=== PATIENT | female | born 1950 | race Caucasian/White ===

== ENCOUNTER 2019-06-13 17:59 | Inpatient (IN) | payer MEDICARE, SELFPAY ==
[2019-06-13] VITALS (9 sets, daily range): BP systolic 94–134; BP diastolic 56–84; PULSE 105–152; RESP 15–23; TEMP 36.6–38.1; O2SAT 92–98; BMI 35.2
--- NOTE | ~2019-06-13 | NM_ITS ---
NM lung vent and perfusion INDICATION: Shortness of breath TECHNIQUE: The patient inhaled aerosolized 6.5 mCi xenon-133. Following ventilation scan, 5.4 mCi Tc 99m MAA was injected intravenously for perfusion images. Multiple images were then acquired. COMPARISON: Chest x-ray dated 06/13/2019 FINDINGS: The comparison chest radiograph demonstrates no pulmonary infiltrates or pleural fluid. The re is moderate matched defect in the right midlung posteriorly there is a matched defect in the left midlung. No significant retention of radiotracer. No V/Q mismatches. IMPRESSION: 1: Low probability for pulmonary embolism.. Reviewed, dictated and finalized at location A. TENDER
--- NOTE | ~2019-06-13 | XR_ITS ---
XR chest 1V portable 06/13/2019 18:58 Indication: Shortness of breath Procedure: AP portable chest Comparison: Comparison to multiple prior studies sequentially, with oldest reviewed study dated 05/29. Findings: Heart size normal. Port catheter tip in the CC. There is chronic bibasilar atelectasis/scar ring, left greater than right. No acute focal pneumonia, edema or effusion. Impression: 1: No acute cardiopulmonary disease. Reviewed, dictated and finalized at location A. UTER SCIENCE INSTRUCTOR Impression: 1: No acute cardiopulmonary disease.
--- NOTE | ~2019-06-13 | XR_ITS ---
EXAMINATION: XR chest 2V DATE: 06/16/2019 14:54 INDICATION: Cough. TECHNIQUE: Frontal and lateral views of the chest were obtained. COMPARISON: Chest single view 06/13/2019, CT abdomen and pelvis 06/01/2019 FINDINGS: There is mild atelectasis in left lower lung zone. No pleural effusion or pneumothorax. The heart size is normal. There is a left subclavian port with tip in superior vena cava. There is mild chronic anterior wedging of multiple thoracic vertebral bodies. IMPRESSION: 1. Mild atelectasis in left lower lung zone. Reviewed, dictated and finalized at location A. ER OPERATOR HELPER
--- NOTE | 2019-06-13 18:26 | ECG_ITS ---
Measurements Intervals Beauty Rate: 157 P: SC: 0 QRS: -30 QRSD: 105 T: 81 QT: 288 QTc: 465 Interpretive Statements ATRIAL FIBRILLATION WITH RAPID VENTRICULAR RESPONSE NONSPECIFIC ST & T-WAVE ABNORMALITY- LATERAL LEADS BASELINE ARTIFACT- I, III, AVL ABNORMAL ECG Electronically Signed On 06-14-2019 15:33:57 CIRCUS ARTIST by Thaddeus Stern D.O.
[2019-06-13] MEDS: SODIUM CHLORIDE 0.9% IV 1,000 ML 999 ML IV CONT (18:38)
[2019-06-13] MEDS: ACETAMINOPHEN 325 MG TABLET 650 MG PO (18:47)
--- NOTE | 2019-06-13 18:51 | ED.ARRPALP ---
HPI - Arrhythmia/Palpitations General Chief Complaint: Shortness of Breath/Dyspnea Stated Complaint: DIFFICULTY BREATHING Time Seen by Provider: 06/13/19 18:21 Source: patient Mode of arrival: ambulatory Limitations: no limitations History of Present Illness HPI narrative: A 69 y/o female pt presents to the ED with c/o moderate heart palpitations with SOB that began today. She states that she can feel her heart beating very fast and reports no modifying factors. Pt states that in April she was prescribed Amiodarone 400mg daily for her AFib, by her medical secretary teacher, Dr. Gaviria, but it is not helping to alleviate her Sx today. Pt has a PMHx of AFib and lung and throat CA. She is currently taking Warfarin as her anticoagulation therapy and is on chemotherapy for her CA. Pt notes a cough, a fever of 100.6F in the ED, and sore throat, but denies CP, N/V/D, or ABD pain. Pt also states she has chronic back and ABD pain but denies any new onset. MD complaint: palpitations Onset (ago): day(s) (1) Severity: moderate Arrhythmia history: atrial fibrillation and on anti-coagulants (Warfarin) Associated symptoms: shortness of breath, cough and other (fever, sore throat) Treatments prior to arrival: amiodarone (400mg daily) Related Data Allergies Allergy/AdvReac Type Severity Reaction Status Date / Time ioversol Allergy Severe Anaphylactic Verified 06/13/19 18:26 Shock codeine Allergy Intermediate Nausea and Verified 06/13/19 18:26 Vomiting iohexol Allergy Mild Unknown Verified 06/13/19 18:26 [From CONTRAST - CT, XRAY] Review of Systems Review of Systems: All systems reviewed & are unremarkable except as noted in HPI and below Constitutional: Constitutional: Denies chills, Reports fever(s) (100.6), Denies headache(s) and Denies weakness Eyes: Eyes: Denies blurry vision ENT: Denies headache(s), Denies neck pain and Reports sore throat Cardiovascular: Cardiovascular: Denies chest pain, Reports palpitations and Reports dyspnea Respiratory: Respiratory: Reports cough and Reports dyspnea Gastrointestinal: Gastrointestinal: Reports abdominal pain (chronic), Denies diarrhea, Denies nausea and Denies vomiting Genitourinary: Genitourinary: Denies hematuria and Denies dysuria Musculoskeletal: Musculoskeletal: Reports back pain (chronic) and Denies neck pain Neurologic: Denies headache(s) and Denies weakness [facility] Past Medical History Medical History Anemia Arthritis Atrial fibrillation Back injury slipped disc, vertebra fx. Plates and screws Breast CA Chemo and radiation Bronchitis Cataracts, bilateral Only the right eye cataract was removed CVA (cerebral vascular accident) Briefly affected vision but has no residual Gallstones Hyperlipidemia Was taken off of her statin Hypertension Laryngeal cancer Receiving chemo radiation Lung nodule Being monitored Obstruction of bowel Port-A-Cath in place Left chest Surgical History Surgical History H/O mastectomy rt H/O tubal ligation History of back surgery History of bilateral knee replacement History of total knee arthroplasty bilateral Hx of hernia repair Social History Social History Social History: 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 They have 2 children. 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
[2019-06-13 18:56] LABS: Hematocrit 35.9 % (37.0-47.0); Mean Corpuscular HGB Conc 33.4 g/dl (32-36); Mean Corpuscular Hemoglobin 33.1 pg (26-34); Mean Corpuscular Volume 98.9 fl (80-100); Mean Platelet Volume 11.1 fl (7.4-10.4); Platelet Count Result 229 k/mm3 (150-375); Red Blood Count 3.63 M/mm3 (4.2-5.4); Red Cell Distribution Width 14.9 % (11.5-14.5); White Blood Count 2.1 K/mm3 (4.5-10.0)
[2019-06-13 19:07] LABS: Alanine Aminotransferase 31 U/L (4-35); Albumin Level 3.4 g/dL (3.5-5.1); Alkaline Phosphatase 100 U/L (38-126); Aspartate Amino Transferase 29 U/L (14-36); Bilirubin,Total 0.5 mg/dL (0.2-1.3); Blood Urea Nitrogen 18 mg/dL (7-17); Calcium 8.8 mg/dL (8.4-10.2); Carbon Dioxide 28 mmol/L (22-30); Chloride 95 mmol/L (98-107); Estimated Glomerular Filt Rate > 60; Glucose 102 mg/dL (65-105); Potassium 3.5 mmol/L (3.4-5.0); Sodium 132 mmol/L (137-145)
[2019-06-13 19:16] LABS: Lactic Acid Reflex 1.1 mmol/L (0.7-2.1)
[2019-06-13 19:17] LABS: Total Cells Counted 100
[2019-06-13 19:18] LABS: Band Neutrophils Percent 2 % (0-6); Monocytes Absolute Manual 0.48 K/mm3 (0.1-0.90); Monocytes Percent Manual 23 % (3-9); Neutrophils Absolute Manual 0.29 K/mm3 (1.7-7.2); Neutrophils Percent Manual 12 % (46-73); Nucleated Red Blood Cells 2 %; Platelet Estimate Adequate (Adequate)
[2019-06-13 19:19] LABS: NT Pro B Type Natriuretic Pept 784 PG/ML (5-100); Troponin I < 0.012 ng/mL (0.000-0.034)
[2019-06-13 19:20] LABS: Lymphocytes Absolute Manual 1.26 K/mm3 (1.1-4.5); Lymphocytes Percent Manual 60 % (18-44); Myelocytes Percent 3 %; Smudge Cells FEW
--- NOTE | 2019-06-13 19:23 | PC.NURSE ---
Per FIONA Sands, port access okay to use.
[2019-06-13 20:09] LABS: INR 2.8; Prothrombin Time 29.2 Seconds (11.1-14.7)
[2019-06-13 20:11] LABS: Partial Thromboplastin Time 107.8 SECONDS (22.3-36.8)
--- NOTE | 2019-06-13 20:34 | PC.NURSE ---
Per EDP Wicho, hold off on Cardizem drip. Patient's blood pressure 94/67 at this time.
[2019-06-13] MEDS: DIGOXIN INJ 250 MCG/ML 2 ML AMP (*BKC) IV PUSH (21:15)
[2019-06-13 21:47] LABS: Digoxin < 0.4 ng/mL (0.8-2.0)
[2019-06-13 21:58] LABS: Troponin I < 0.012 ng/mL (0.000-0.034)
--- NOTE | 2019-06-13 22:08 | PM.IMHP ---
H&P: HPI History of Present Illness Chief complaint: Cough and palpitations Narrative: This is a pleasant 69-year-old female with known laryngeal cancer since 2016 and paroxysmal atrial fibrillation who was recently admitted to our hospitalist service last month for rapid atrial fibrillation and who presented to the hospital tonight with a complaint of intermittent palpitations, ongoing sore throat over the past few days, exertional shortness of breath, and a dry hacking cough for the past few weeks. She was recently started on oral chemotherapy over a week ago and she reports that she presented to the emergency room on the of this month with similar symptoms of a sore throat and a dry cough. At that time she was sent home. She reports having a fever of 100.6? F today and chills. She also reports having dysuria and vaginal itching and believes that she likely has a yeast infection. She denies any chest pain or abdominal pain tonight. She denies any lower extremity swelling or redness. Patient was evaluated emergency room this evening and routine labs were obtained. She was found to be in rapid atrial fibrillation and she was started on IV Cardizem. Routine labs demonstrated leukopenia with a white blood cell count of 2.1. The patient is anticoagulated on Coumadin and her INR is 2.8 tonight. The patient's last known echocardiogram this last month demonstrated an ejection fraction of 35%. She has been on oral amiodarone after having a failed cardioversion last month. We been asked to admit the patient to the hospital for her rapid atrial fibrillation. The patient admits that she continues to smoke about a half a pack of cigarettes a day despite having laryngeal cancer. Review of Systems Review of Systems: All systems reviewed & are unremarkable except as noted in HPI and below PMFSH Past Medical History Medical History Anemia Arthritis Atrial fibrillation Back injury slipped disc, vertebra fx. Plates and screws Breast CA Chemo and radiation Bronchitis Cataracts, bilateral Only the right eye cataract was removed CVA (cerebral vascular accident) Briefly affected vision but has no residual Gallstones Hyperlipidemia Was taken off of her statin Hypertension Laryngeal cancer Receiving chemo radiation Lung nodule Being monitored Obstruction of bowel Port-A-Cath in place Left chest Surgical History Surgical History H/O mastectomy rt H/O tubal ligation History of back surgery History of bilateral knee replacement History of total knee arthroplasty bilateral Hx of hernia repair Family History Family History Mother Family history of malignant neoplasm Family history of heart disease in male family member before age 55 Patient's mother is Father Family history of malignant neoplasm of brain Sibling Cancer Other Family history of arthritis Social History Social History Social History: 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 They have 2 children. 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. 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
[2019-06-13] MEDS: AMIODARONE 150 MG/D5W 100 ML 150 MG/100 ML BAG 600 MG IV CONT (23:03)
[2019-06-13] MEDS: AMIODARONE 360 MG/D5W 200 ML 360 MG/200 ML BAG 33.3 MG IV CONT (23:05)
[2019-06-13] MEDS: MICONAZOLE NITRATE 2% VAGINAL CREAM 45 GM TUBE 1 APPFUL VAGINAL (23:35)
--- NOTE | 2019-06-13 23:43 | ADMGEN ---
This patient, Shruthi Denson, was admitted to IMU Room 213-01 FROM ER 2250. Patient/family oriented to hospital policies and general routines including ID bracelet, bed and alarms, visiting hours, pain management, procedures, bathroom and other care routines, personal items, smoking policy, room service/diet, and visiting hours. Valuables list has been completed. Information on how to activate the Rapid Response Team has been discussed. Patient/Family are encouraged to report perceived risks to care and to ask questions if they do not understand what they are told or what they should do.
[2019-06-14] VITALS (27 sets, daily range): BP systolic 86–133; BP diastolic 62–72; PULSE 77–124; RESP 14–22; TEMP 36.1–37.2; O2SAT 96–100
[2019-06-14 01:08] LABS: Troponin I < 0.012 ng/mL (0.000-0.034)
[2019-06-14] MEDS: AMIODARONE 360 MG/D5W 200 ML 360 MG/200 ML BAG 16.7 MG IV CONT (05:24)
[2019-06-14 05:42] LABS: Basophils Percent Auto 1.4 % (0.2-1.2); Eosinophils Absolute Auto 0.1 K/mm3 (0-0.3); Eosinophils Percent Auto 1.8 % (0-4.4); Hematocrit 32.6 % (37.0-47.0); Hemoglobin 10.9 g/dL (12.0-15.0); Immature Granulocyte Absolute 0.35 K/mm3 (0.00-0.031); Immature Granulocyte Percent A 12.7 % (0-0.5); Lymphocytes Absolute Auto 1.02 K/mm3 (0.9-3.2); Mean Corpuscular HGB Conc 33.4 g/dl (32-36); Mean Corpuscular Hemoglobin 33.1 pg (26-34); Mean Corpuscular Volume 99.1 fl (80-100); Mean Platelet Volume 10.6 fl (7.4-10.4); Monocytes Absolute Auto 0.8 K/mm3 (0.1-0.6); Monocytes Percent Auto 27.9 % (2.6-8.5); Neutrophils Absolute Auto 0.5 K/mm3 (1.3-6.7); Neutrophils Percent Auto 19.2 % (45.5-73.1); Nucleated Red Blood Cells Perc 1.4 % (0.0-0.2); Platelet Count Result 207 k/mm3 (150-375); Red Blood Count 3.29 M/mm3 (4.2-5.4); White Blood Count 2.8 K/mm3 (4.5-10.0)
[2019-06-14 05:52] LABS: Blood Urea Nitrogen 13 mg/dL (7-17); Calcium 8.5 mg/dL (8.4-10.2); Carbon Dioxide 28 mmol/L (22-30); Chloride 97 mmol/L (98-107); Estimated CRCL calculation 66 ml/min; Estimated Glomerular Filt Rate > 60; Glucose 90 mg/dL (65-105); Potassium 3.3 mmol/L (3.4-5.0); Sodium 133 mmol/L (137-145)
[2019-06-14] MEDS: MULTIVITAMINS /C LUTEIN (CENTRUM SILVER) TABLET *BKC 1 TAB PO (09:04)
[2019-06-14] MEDS: POTASSIUM CHLORIDE 20 MEQ TABLET 40 MEQ PO (09:04)
--- NOTE | 2019-06-14 10:17 | PM.CNCAR ---
Assessment and Plan Additional Plan Paroxysmal atrial fibrillation previously now persistent for at least a couple of months we are making an attempt to restore sinus rhythm because of patient is being symptomatic however the plan as I mentioned in my note above was to attempt cardioversion after she has been therapeutically anticoagulated for at least a month. She is not hemodynamically in R[place]ha by her atrial fibrillation and the heart rate is little bit elevated upon arrival but since she is in the setting of a neutropenic fever I do not know that that should be a recent cardiovert her earlier than we had previously planned. The concept of a TERRY cardioversion at during this hospitalization was considered and discussed with the patient but at this point it is her preference to continue with the plan as I have outlined above which I also think is quite reasonable. I will discontinue her IV amiodarone she has been loaded with amiodarone since April I do not think giving it to her intravenously is going to help very much at this point I will increase her beta-cyndie dosage to 75 mg q.12 hours to try to provide some additional rate control. If tachycardia is problematic we can consider adding some digoxin to the regimen as well try to avoid diltiazem given her comorbidities and the use of amiodarone. Will follow her with you while she is in the hospital but at this point I do not believe there are additional cardiac recommendations to make. Certainly if she becomes overtly unstable a cardioversion can be attempted again while she is here. History of Present Illness History of Present Illness Consult date/time: Date of service: 06/14/19 10:17 Consult reason: atrial fibrillation Reason For Visit: Cough and palpitations Narrative: This is a 69-year-old woman I am seeing today at the request of the hospitalist for assistance with the treatment of atrial fibrillation. Patient has a history of this arrhythmia for at least a couple of years and is known to me from previous consultations in the hospital and office follow-up. The patient has a history of atrial fibrillation which in the past was treated with sotalol which maintained sinus rhythm. The patient became problematically bradycardic and hypotensive on sotalol resulting in its discontinuance in the past. Following that she was treated with amiodarone which successfully maintain sinus rhythm. About a year ago that drug was stopped because she was developing a rash which was attributed to the agent which in retrospect was probably not the case. She was seen by me in the hospital in April of 2019 with symptomatic recurrence of atrial fibrillation the decision was made to place her back on amiodarone pain anticoagulate her and attempt cardioversion. Cardioversion was attempted after she had been loaded intravenously with amiodarone in the 1st week of April which was unsuccessful. Because she was symptomatic with the arrhythmia the plan was to maintain amiodarone orally for at least a month or so and then attempt another cardioversion after that. She has been seen a couple of times in the office between then and today and plans to cardiovert her were delayed because her INR was not therapeutic. The plan at my direction to the office staff was to monitor her INR and when we had achieved a therapeutic INR for at least 2.0 for a month without interruption a plan to repeat cardioversion should be considered and schedule. 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 Plans were made to attempt a curative resection of this at that point which were canceled with the patient was I doubt it was notified of a malignant deposits in the chest and I canceled the surgery at that time. She has been treated by her oncologist and is currently receivi
--- NOTE | 2019-06-14 10:27 | PHAR ---
MD WANTS AMIODARONE PO TABLETS TO START TODAY 06/14 INSTEAD OF TOMORROW
[2019-06-14] MEDS: METOPROLOL TARTRATE TAB 25 MG, METOPROLOL TARTRATE TAB 50 MG 75 MG PO ×2 (10:50→20:30)
[2019-06-14] MEDS: AMIODARONE HCL 200 MG TABLET 400 MG PO (10:50)
[2019-06-14] MEDS: WARFARIN (*PBKC) 4 MG TABLET PO (17:51)
--- NOTE | 2019-06-14 18:01 | PM.IMPN ---
Progress Note: A&P Assessment and Plan (1) Atrial fibrillation with rapid ventricular response: Code(s): I48.91 - Unspecified atrial fibrillation Status: Acute Assessment and Plan: Ventricular response around 100. Cardiology has seen and increased the metoprolol. Continuing p.o. amiodarone and possible cardiovert later if continues to improve Continue warfarin INR 2.8 (2) URI (upper respiratory infection): Qualifiers: URI type: unspecified URI Qualified Code(s): J06.9 - Acute upper respiratory infection, unspecified Code(s): J06.9 - Acute upper respiratory infection, unspecified Status: Acute Assessment and Plan: Absolute neutrophil count just above 500. Blood cultures have been obtained and since appears to be more respiratory will continue the ceftriaxone and doxycycline (3) Laryngeal cancer: Code(s): C32.9 - Malignant neoplasm of larynx, unspecified Status: Chronic Assessment and Plan: Currently undergoing chemo with her oncologist (4) Hypertension: Qualifiers: Hypertension type: unspecified Qualified Code(s): I10 - Essential (primary) hypertension Code(s): I10 - Essential (primary) hypertension Status: Chronic Assessment and Plan: Blood pressure toward the low side and monitor with increasing metoprolol (5) Anemia: Code(s): D64.9 - Anemia, unspecified Status: Chronic Assessment and Plan: Probable secondary to chemotherapy. During her last hospitalization no B12 level was low and will recheck that (6) DVT prophylaxis: Code(s): Z29.9 - Encounter for prophylactic measures, unspecified Status: Acute Assessment and Plan: Chronic warfarin therapy with therapeutic INR Subjective Date/time seen: 06/14/19 18:01 Interval history: Date of visit 06/14/2019. 69-year-old hypertensive white female with atrial fibrillation and laryngeal carcinoma presented to the emergency room with increasing heart rate and shortness of breath. He has had low-grade fever and been coughing also. Cough is nonproductive. 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 Exam Narrative: Exam Narrative: Blood pressure 92/62 pulse is 100 irregular respirations 24 per minute satting above 90% and afebrile at present time T-max 100.3 Pupils equal reactive to light sclera anicteric Lungs prolonged expiratory phase a hear no wheezing or consolidation CV irregular no murmur Abdomen is soft nontender no masses Extremities without edema distal pulses 2+ Neuro alert pleasant cooperative no focal deficits Objective Data Vital Signs Vital Signs: Vital Signs - 24 hr 06/13/19 18:18 06/13/19 19:17 06/13/19 19:26 Temperature 38.1 C H 38.0 C H Pulse Rate 147 H 137 H Respiratory Rate 23 H 16 Blood Pressure 134/84 122/75 Pulse Oximetry 95 92 06/13/19 20:15 06/13/19 21:01 06/13/19 21:04 Temperature 38.0 C H Pulse Rate 128 H 105 H 121 H Respiratory Rate 16 15 16 Blood Pressure 94/67 L 100/70 104/70 Pulse Oximetry 95 98 97 06/13/19 21:15 06/13/19 22:00 06/13/19 22:50 Temperature 36.6 C Pulse Rate 125 H 122 H 123 H Respiratory Rate 18 Blood Pressure 98/56 L Pulse Oximetry 96 06/14/19 00:00 06/14/19 01:47 06/14/19 01:59 Temperature 36.6 C Pulse Rate 98 94 95 Respiratory Rate 22 H 18 18 Blood Pressure 104/64 Pulse Oximetry 98 06/14/19 02:00 06/14/19 03:53 06/14/19 06:00 Temperature 37.2 C Pulse Rate 104 H 106 H 121 H Respiratory Rate 22 H Blood Pressure 133/68 Pulse Oximetry 96 06/14/19 07:53 06/14/19 08:00 06/14/19 09:09 Temperature 36.3 C L Pulse Rate 119 H 124 H Respiratory Rate 21 H Blood Pressure 86/62 L 109/62 Pulse Oximetry 96 06/14/19 09:47 06/14/19 10:00 06/14/19 10:01 Temperature Pulse Rate 81 114 H 85 Respiratory Rate 20 Blood Pressure Pulse Oximetry 06/14/19 10:50 06/14/19 12:00 06/14/19 12:52
[2019-06-14] MEDS: MICONAZOLE NITRATE 2% VAGINAL CREAM 45 GM TUBE 1 APPFUL VAGINAL (20:31)
[2019-06-14] MEDS: DOXYCYCLINE HYCLATE 100 MG TABLET PO (20:31)
[2019-06-15] VITALS (26 sets, daily range): BP systolic 96–131; BP diastolic 67–90; PULSE 71–118; RESP 18–22; TEMP 36.2–36.9; O2SAT 98–99
[2019-06-15] MEDS: DOXYCYCLINE HYCLATE 100 MG TABLET PO ×2 (06:06→18:54)
[2019-06-15 06:24] LABS: Basophils Percent Auto 0.7 % (0.2-1.2); Eosinophils Absolute Auto 0.1 K/mm3 (0-0.3); Eosinophils Percent Auto 1.4 % (0-4.4); Hematocrit 33.6 % (37.0-47.0); Hemoglobin 10.9 g/dL (12.0-15.0); Immature Granulocyte Absolute 0.88 K/mm3 (0.00-0.031); Immature Granulocyte Percent A 19.9 % (0-0.5); Lymphocytes Percent Auto 22.6 % (18.3-44.2); Mean Corpuscular HGB Conc 32.4 g/dl (32-36); Mean Corpuscular Hemoglobin 32.7 pg (26-34); Mean Corpuscular Volume 100.9 fl (80-100); Mean Platelet Volume 10.7 fl (7.4-10.4); Monocytes Absolute Auto 0.7 K/mm3 (0.1-0.6); Monocytes Percent Auto 15.8 % (2.6-8.5); Neutrophils Absolute Auto 1.8 K/mm3 (1.3-6.7); Neutrophils Percent Auto 39.6 % (45.5-73.1); Nucleated Red Blood Cells Perc 0.7 % (0.0-0.2); Platelet Count Result 234 k/mm3 (150-375); Red Blood Count 3.33 M/mm3 (4.2-5.4); Red Cell Distribution Width 15.1 % (11.5-14.5); White Blood Count 4.4 K/mm3 (4.5-10.0)
[2019-06-15 06:39] LABS: Prothrombin Time 21.8 Seconds (11.1-14.7)
[2019-06-15 06:46] LABS: Potassium 3.6 mmol/L (3.4-5.0)
[2019-06-15 06:59] LABS: Blood Urea Nitrogen 15 mg/dL (7-17); Calcium 9.2 mg/dL (8.4-10.2); Carbon Dioxide 27 mmol/L (22-30); Chloride 99 mmol/L (98-107); Estimated CRCL calculation 53 ml/min; Estimated Glomerular Filt Rate > 60; Glucose 102 mg/dL (65-105); Sodium 137 mmol/L (137-145)
[2019-06-15] MEDS: AMIODARONE HCL 200 MG TABLET 400 MG PO (07:55)
[2019-06-15] MEDS: METOPROLOL TARTRATE TAB 25 MG, METOPROLOL TARTRATE TAB 50 MG 75 MG PO ×2 (07:56→20:39)
[2019-06-15] MEDS: MULTIVITAMINS /C LUTEIN (CENTRUM SILVER) TABLET *BKC 1 TAB PO (07:56)
--- NOTE | 2019-06-15 09:36 | PM.PNCARD ---
Progress Note: A&P Additional Plan AF with controlled V response, Plan cont amiodarone, metoprolol and warfarin Subjective Date/time seen: 06/15/19 09:36 No acute events overnight Tele: AF rate 90s Review of Systems Review of Systems: Narrative: General: good sleep last night, no chills or fevers Cardiac: No chest pain or palpitations or dizziness/syncope Respiratory: No SOB or cough Abdomen: Good appetite, no nausea or vomiting or diarrhea Hematologic: No bleeding or easy bruises Neurologic: No focal weakness or numbness Other complaints: None Exam Narrative: Exam Narrative: General: able to lie flat, no acute distress Respiratory: No chest wall tenderness, equal air entry and expansion, CTAB Cardiovascular: irregular irregularity without murmur, No JVD. Lower extremities: No lower extremity edema. Warm, no skin lesion or bruises. Good capillary refill. Gastrointestinal: The abdomen is soft, nontender and nondistended with active bowel sounds. Psychiatric: Normal affect and co-operative Neurologic: Alert and oriented. No focal deficits. Speech is clear. No facial drooping. Objective Data Vital Signs Vital Signs: Vital Signs - 24 hr 06/14/19 09:47 06/14/19 10:00 06/14/19 10:01 Temperature Pulse Rate 81 114 H 85 Respiratory Rate 20 Blood Pressure Pulse Oximetry 06/14/19 10:50 06/14/19 12:00 06/14/19 12:52 Temperature 36.5 C Pulse Rate 100 89 83 Respiratory Rate 22 H Blood Pressure 91/62 L Pulse Oximetry 100 06/14/19 14:00 06/14/19 15:13 06/14/19 15:24 Temperature Pulse Rate 82 83 86 Respiratory Rate 20 20 Blood Pressure Pulse Oximetry 06/14/19 16:00 06/14/19 18:00 06/14/19 19:35 Temperature 36.2 C L 36.2 C L Pulse Rate 90 84 88 Respiratory Rate 14 16 Blood Pressure 105/67 111/72 Pulse Oximetry 98 98 06/14/19 19:40 06/14/19 19:51 06/14/19 20:00 Temperature Pulse Rate 82 84 77 Respiratory Rate 20 20 Blood Pressure Pulse Oximetry 06/14/19 20:30 06/14/19 22:00 06/14/19 23:32 Temperature 36.1 C L Pulse Rate 87 88 77 Respiratory Rate 16 Blood Pressure 108/64 Pulse Oximetry 97 06/15/19 00:00 06/15/19 01:25 06/15/19 01:37 Temperature Pulse Rate 87 80 80 Respiratory Rate 20 20 Blood Pressure Pulse Oximetry 06/15/19 02:00 06/15/19 04:00 06/15/19 06:00 Temperature 36.2 C L Pulse Rate 87 105 H 86 Respiratory Rate 20 Blood Pressure 131/73 Pulse Oximetry 98 06/15/19 07:50 06/15/19 07:55 06/15/19 07:56 Temperature 36.4 C Pulse Rate 118 H 99 99 Respiratory Rate 22 H Blood Pressure 128/83 Pulse Oximetry 99 06/15/19 08:00 06/15/19 08:46 06/15/19 08:53 Temperature Pulse Rate 96 86 89 Respiratory Rate 20 20 Blood Pressure Pulse Oximetry Intake/Output Intake/Output: Intake & Output 06/12/19 06/13/19 06/14/19 06/15/19 23:59 23:59 23:59 23:59 Intake Total 1300 2420 990 Output Total 2690 500 Balance 1300 -270 490 Meds/Results Medications: Active Medications Generic Name Dose Route Start Last Admin Trade Name Freq PRN Reason Stop Dose Admin Hydrocodone Bitart/Acetaminophen 1 tab 06/14/19 16:26 06/15/19 06:18 Elmore 5-325 Mg PO 1 tab Q6H PRN Administration Pain Rated 4-6 Amiodarone HCl 400 mg 06/14/19 10:30 06/15/19 07:55 Pacerone PO 400 mg DAILY@0800 HEVER Administration Calcium Carbonate 500 mg 06/14/19 09:00 06/15/19 07:56 Os-Jeremy 500 +D Tablet PO 500 mg BID HEVER Administration Doxycycline Hyclate 100 mg 06/14/19 19:00 06/15/19 06:06 Vibramycin Tab PO 100 mg Q12H HEVER Administration Heparin Sodium (Beef Lung) 50 units 06/14/19 09:00 06/15/19 07:56 Heparin Flush 50 Units/5 Ml IV PUSH 50 units QAM HEVER Administration Heparin Sodium (Beef Lung) 50 units 06/13/19 22:43 Heparin Flush 50 Units/5 Ml IV PUSH PRN PRN after intermittent infusion Heparin Sodium (Beef
--- NOTE | 2019-06-15 16:19 | PM.IMPN ---
Progress Note: A&P Assessment and Plan (1) Atrial fibrillation with rapid ventricular response: Code(s): I48.91 - Unspecified atrial fibrillation Status: Acute Assessment and Plan: Ventricular response around 80-90 now. Cardiology has seen and increased the metoprolol. Continuing p.o. amiodarone and possible cardiovert later if continues to improve Continue warfarin INR 2.0 (2) URI (upper respiratory infection): Qualifiers: URI type: unspecified URI Qualified Code(s): J06.9 - Acute upper respiratory infection, unspecified Code(s): J06.9 - Acute upper respiratory infection, unspecified Status: Acute Assessment and Plan: Absolute neutrophil count well in normal range today with total count of 4400 and 40% neutrophils. Blood cultures so far negative since appears to be more respiratory will continue the ceftriaxone and doxycycline (3) Laryngeal cancer: Code(s): C32.9 - Malignant neoplasm of larynx, unspecified Status: Chronic Assessment and Plan: Currently undergoing chemo with her oncologist (4) Hypertension: Qualifiers: Hypertension type: unspecified Qualified Code(s): I10 - Essential (primary) hypertension Code(s): I10 - Essential (primary) hypertension Status: Chronic Assessment and Plan: Blood pressure toward the low side and monitor with increasing metoprolol (5) Anemia: Code(s): D64.9 - Anemia, unspecified Status: Chronic Assessment and Plan: Probable secondary to chemotherapy. During her last hospitalization no B12 level was low and recheck only 292 so will give another parental dose before discharge (6) DVT prophylaxis: Code(s): Z29.9 - Encounter for prophylactic measures, unspecified Status: Acute Assessment and Plan: Chronic warfarin therapy with therapeutic INR Subjective Date/time seen: 06/15/19 16:19 Interval history: Date of visit 06/15/2019. 69-year-old hypertensive white female with atrial fibrillation and laryngeal carcinoma presented to the emergency room with increasing heart rate and shortness of breath. He has had low-grade fever and been coughing also. Cough is nonproductive. 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 Less cough and feels better this a.m.. Exam Narrative: Exam Narrative: Blood pressure 100/68 pulse is 86 irregular respirations 20 per minute satting above 92% and afebrile past 24 hours Pupils equal reactive to light sclera anicteric Lungs prolonged expiratory phase a hear no wheezing or consolidation CV irregular no murmur Abdomen is soft nontender no masses Extremities without edema distal pulses 2+ Neuro alert pleasant cooperative no focal deficits Objective Data Vital Signs Vital Signs: Vital Signs - 24 hr 06/14/19 18:00 06/14/19 19:35 06/14/19 19:40 Temperature 36.2 C L Pulse Rate 84 88 82 Respiratory Rate 16 20 Blood Pressure 111/72 Pulse Oximetry 98 06/14/19 19:51 06/14/19 20:00 06/14/19 20:30 Temperature Pulse Rate 84 77 87 Respiratory Rate 20 Blood Pressure Pulse Oximetry 06/14/19 22:00 06/14/19 23:32 06/15/19 00:00 Temperature 36.1 C L Pulse Rate 88 77 87 Respiratory Rate 16 Blood Pressure 108/64 Pulse Oximetry 97 06/15/19 01:25 06/15/19 01:37 06/15/19 02:00 Temperature Pulse Rate 80 80 87 Respiratory Rate 20 20 Blood Pressure Pulse Oximetry 06/15/19 04:00 06/15/19 06:00 06/15/19 07:50 Temperature 36.2 C L 36.4 C Pulse Rate 105 H 86 118 H Respiratory Rate 20 22 H Blood Pressure 131/73 128/83 Pulse Oximetry 98 99 06/15/19 07:55 06/15/19 07:56 06/15/19 08:00 Temperature Pulse Rate 99 99 96 Respiratory Rate Blood Pressure Pulse Oximetry 06/15/19 08:46 06/15/19 08:53 06/15/19 10:00 Temperature Pulse Rate 86 89 86 Respiratory Rate 20 20 Blood Pressure Pulse Oximetry 06/15/19 12:00 06/15/19 13
[2019-06-15] MEDS: WARFARIN (*PBKC) 4 MG TABLET PO (18:07)
[2019-06-15] MEDS: MICONAZOLE NITRATE 2% VAGINAL CREAM 45 GM TUBE 1 APPFUL VAGINAL (20:39)
[2019-06-15] MEDS: SENNA/DOCUSATE SODIUM TABLET 1 TAB PO (20:39)
[2019-06-16] VITALS (24 sets, daily range): BP systolic 85–129; BP diastolic 56–86; PULSE 50–105; RESP 16–20; TEMP 36.1–37; O2SAT 93–97
[2019-06-16] MEDS: DOXYCYCLINE HYCLATE 100 MG TABLET PO ×2 (06:01→17:22)
[2019-06-16 06:42] LABS: Basophils Percent Auto 0.2 % (0.2-1.2); Eosinophils Absolute Auto 0.1 K/mm3 (0-0.3); Eosinophils Percent Auto 1.1 % (0-4.4); Hematocrit 35.2 % (37.0-47.0); Hemoglobin 11.4 g/dL (12.0-15.0); Immature Granulocyte Absolute 1.44 K/mm3 (0.00-0.031); Immature Granulocyte Percent A 27.4 % (0-0.5); Lymphocytes Absolute Auto 1.09 K/mm3 (0.9-3.2); Lymphocytes Percent Auto 20.7 % (18.3-44.2); Mean Corpuscular HGB Conc 32.4 g/dl (32-36); Mean Corpuscular Hemoglobin 32.8 pg (26-34); Mean Corpuscular Volume 101.1 fl (80-100); Monocytes Absolute Auto 0.4 K/mm3 (0.1-0.6); Monocytes Percent Auto 8.4 % (2.6-8.5); Neutrophils Absolute Auto 2.2 K/mm3 (1.3-6.7); Neutrophils Percent Auto 42.2 % (45.5-73.1); Nucleated Red Blood Cells Perc 0.4 % (0.0-0.2); Platelet Count Result 268 k/mm3 (150-375); Red Blood Count 3.48 M/mm3 (4.2-5.4); Red Cell Distribution Width 15.2 % (11.5-14.5); White Blood Count 5.3 K/mm3 (4.5-10.0)
[2019-06-16 06:44] LABS: Blood Urea Nitrogen 17 mg/dL (7-17); Calcium 9.3 mg/dL (8.4-10.2); Carbon Dioxide 28 mmol/L (22-30); Chloride 98 mmol/L (98-107); Estimated CRCL calculation 59 ml/min; Estimated Glomerular Filt Rate > 60; Glucose 115 mg/dL (65-105); Potassium 3.7 mmol/L (3.4-5.0); Sodium 136 mmol/L (137-145)
[2019-06-16] MEDS: ONDANSETRON INJ 4 MG/2 ML VIAL IV PUSH (08:37)
[2019-06-16] MEDS: AMIODARONE HCL 200 MG TABLET 400 MG PO (10:55)
[2019-06-16] MEDS: METOPROLOL TARTRATE TAB 25 MG, METOPROLOL TARTRATE TAB 50 MG 75 MG PO ×2 (10:55→20:40)
[2019-06-16] MEDS: MULTIVITAMINS /C LUTEIN (CENTRUM SILVER) TABLET *BKC 1 TAB PO (10:55)
[2019-06-16] MEDS: polyethylene glycoL 3350 17 GM POWD.PACK PO (13:21)
[2019-06-16 13:46] LABS: Prothrombin Time 22.4 Seconds (11.1-14.7)
--- NOTE | 2019-06-16 14:28 | PM.PNCARD ---
Progress Note: A&P Additional Plan AF with controlled V response, INR in target range, Plan cont amiodarone, metoprolol and warfarin Subjective Date/time seen: 06/16/19 14:28 Interval history: no acute events Tele: Af with controlled V response Review of Systems Review of Systems: Narrative: General: good sleep last night, no chills or fevers Cardiac: No chest pain or palpitations or dizziness/syncope Respiratory: chronic SOB and cough Abdomen: Good appetite, no nausea or vomiting or diarrhea Hematologic: No bleeding or easy bruises Neurologic: No focal weakness or numbness Other complaints: None Exam Narrative: Exam Narrative: General: able to lie flat, no acute distress Respiratory: No chest wall tenderness, equal air entry and expansion, CTAB Cardiovascular: irregular rate and rhythm without murmur, No JVD. Lower extremities: No lower extremity edema. Warm, no skin lesion or bruises. Good capillary refill. Gastrointestinal: The abdomen is soft, nontender and nondistended with active bowel sounds. Psychiatric: Normal affect and co-operative Neurologic: Alert and oriented. No focal deficits. Speech is clear. No facial drooping. Objective Data Vital Signs Vital Signs: Vital Signs - 24 hr 06/15/19 16:00 06/15/19 18:00 06/15/19 19:39 Temperature 36.7 C 36.6 C Pulse Rate 98 100 88 Respiratory Rate 20 20 Blood Pressure 96/67 L 130/73 Pulse Oximetry 98 98 06/15/19 19:56 06/15/19 20:00 06/15/19 20:05 Temperature Pulse Rate 71 92 76 Respiratory Rate 18 18 Blood Pressure Pulse Oximetry 06/15/19 20:39 06/15/19 22:00 06/15/19 23:53 Temperature 36.9 C Pulse Rate 101 H 96 99 Respiratory Rate 18 Blood Pressure 115/76 Pulse Oximetry 98 06/16/19 00:00 06/16/19 01:45 06/16/19 01:55 Temperature Pulse Rate 93 72 81 Respiratory Rate 18 18 Blood Pressure Pulse Oximetry 06/16/19 02:00 06/16/19 04:00 06/16/19 06:00 Temperature 37.0 C Pulse Rate 89 86 97 Respiratory Rate 18 Blood Pressure 129/86 Pulse Oximetry 93 06/16/19 07:50 06/16/19 08:00 06/16/19 08:21 Temperature 36.3 C L Pulse Rate 50 L 103 H 83 Respiratory Rate 20 18 Blood Pressure 113/86 Pulse Oximetry 06/16/19 08:30 06/16/19 10:00 06/16/19 10:55 Temperature Pulse Rate 105 H 105 H 104 H Respiratory Rate 18 Blood Pressure Pulse Oximetry 06/16/19 12:00 06/16/19 14:18 06/16/19 14:26 Temperature 36.1 C L Pulse Rate 72 93 89 Respiratory Rate 18 16 18 Blood Pressure 120/62 Pulse Oximetry 97 Intake/Output Intake/Output: Intake & Output 06/13/19 06/14/19 06/15/19 06/16/19 23:59 23:59 23:59 23:59 Intake Total 1300 2586.7 2380 960 Output Total 2690 1700 1200 Balance 1300 -103.3 680 -240 Meds/Results Medications: Active Medications Generic Name Dose Route Start Last Admin Trade Name Freq PRN Reason Stop Dose Admin Hydrocodone Bitart/Acetaminophen 1 tab 06/14/19 16:26 06/16/19 13:21 [place] 5-325 Mg PO 1 tab Q6H PRN Administration Pain Rated 4-6 Amiodarone HCl 400 mg 06/14/19 10:30 06/16/19 10:55 Pacerone PO 400 mg DAILY@0800 [facility] Administration Calcium Carbonate 500 mg 06/14/19 09:00 06/16/19 10:55 Os-Jeremy 500 +D Tablet PO 500 mg BID HEVER Administration Doxycycline Hyclate 100 mg 06/14/19 19:00 06/16/19 06:01 Vibramycin Tab PO 100 mg Q12H HEVER Administration Heparin Sodium (Beef Lung) 50 units 06/14/19 09:00 06/16/19 08:38 Heparin Flush 50 Units/5 Ml IV PUSH 50 units QAM HEVER Administration Heparin Sodium (Beef Lung) 50 units 06/13/19 22:43 Heparin Flush 50 Units/5 Ml IV PUSH PRN PRN after intermittent infusion Heparin Sodium (Beef Lung) 50 units 06/13/19 22:43 Heparin Flush 50 Units/5 Ml IV PUSH PRN PRN after blood draws Heparin Sodium (Porcine) 500 units 06/13/19 22:43 Heparin Sod Flush 100 Units/Ml IV PUSH PRN PRN
[2019-06-16] MEDS: WARFARIN (*PBKC) 4 MG TABLET PO (17:22)
--- NOTE | 2019-06-16 17:47 | PM.IMPN ---
Progress Note: A&P Assessment and Plan (1) Atrial fibrillation with rapid ventricular response: Code(s): I48.91 - Unspecified atrial fibrillation Status: Acute Assessment and Plan: Ventricular response around 80-90 now still. Cardiology has seen and increased the metoprolol. Continuing p.o. amiodarone and possible cardiovert later if continues to improve Continue warfarin INR recheck in am (2) URI (upper respiratory infection): Qualifiers: URI type: unspecified URI Qualified Code(s): J06.9 - Acute upper respiratory infection, unspecified Code(s): J06.9 - Acute upper respiratory infection, unspecified Status: Acute Assessment and Plan: Absolute neutrophil count well in normal range today with total count >5000 and 42% neutrophils. Blood cultures so far negative since appears to be more respiratory will continue the ceftriaxone and doxycycline (3) Laryngeal cancer: Code(s): C32.9 - Malignant neoplasm of larynx, unspecified Status: Chronic Assessment and Plan: Currently undergoing chemo with her oncologist (4) Hypertension: Qualifiers: Hypertension type: unspecified Qualified Code(s): I10 - Essential (primary) hypertension Code(s): I10 - Essential (primary) hypertension Status: Chronic Assessment and Plan: Blood pressure toward the low side and monitor with increasing metoprolol (5) Anemia: Code(s): D64.9 - Anemia, unspecified Status: Chronic Assessment and Plan: Probable secondary to chemotherapy. During her last hospitalization no B12 level was low and recheck only 292 so will give another parental dose before discharge (6) DVT prophylaxis: Code(s): Z29.9 - Encounter for prophylactic measures, unspecified Status: Acute Assessment and Plan: Chronic warfarin therapy with therapeutic INR recheck in am Subjective Date/time seen: 06/16/19 17:47 Interval history: Date of visit 06/16/2019. 69-year-old hypertensive white female with atrial fibrillation and laryngeal carcinoma presented to the emergency room with increasing heart rate and shortness of breath. He has had low-grade fever and been coughing also. Cough is nonproductive. 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 Less cough and feels better this a.m..but did have emesis after coughing episode this am that does occasionlly at home Exam Narrative: Exam Narrative: Blood pressure 114/86 pulse is 80-90 irregular respirations 20 per minute satting above 92% and afebrile past 24 hours Pupils equal reactive to light sclera anicteric Lungs prolonged expiratory phase , hear no wheezing or consolidation CV irregular no murmur Abdomen is soft nontender no masses Extremities without edema distal pulses 2+ Neuro alert pleasant cooperative no focal deficits Objective Data Vital Signs Vital Signs: Vital Signs - 24 hr 06/15/19 18:00 06/15/19 19:39 06/15/19 19:56 Temperature 36.6 C Pulse Rate 100 88 71 Respiratory Rate 20 18 Blood Pressure 130/73 Pulse Oximetry 98 06/15/19 20:00 06/15/19 20:05 06/15/19 20:39 Temperature Pulse Rate 92 76 101 H Respiratory Rate 18 Blood Pressure Pulse Oximetry 06/15/19 22:00 06/15/19 23:53 06/16/19 00:00 Temperature 36.9 C Pulse Rate 96 99 93 Respiratory Rate 18 Blood Pressure 115/76 Pulse Oximetry 98 06/16/19 01:45 06/16/19 01:55 06/16/19 02:00 Temperature Pulse Rate 72 81 89 Respiratory Rate 18 18 Blood Pressure Pulse Oximetry 06/16/19 04:00 06/16/19 06:00 06/16/19 07:50 Temperature 37.0 C 36.3 C L Pulse Rate 86 97 50 L Respiratory Rate 18 20 Blood Pressure 129/86 113/86 Pulse Oximetry 93 06/16/19 08:00 06/16/19 08:21 06/16/19 08:30 Temperature Pulse Rate 103 H 83 105 H Respiratory Rate 18 18 Blood Pressure Pulse Oximetry 06/16/19 10:00 06/16/19 10:55 06/16/19 12:00 Temperature 36.1
[2019-06-16] MEDS: SENNA/DOCUSATE SODIUM TABLET 1 TAB PO (20:40)
[2019-06-16] MEDS: MICONAZOLE NITRATE 2% VAGINAL CREAM 45 GM TUBE 1 APPFUL VAGINAL (21:40)
[2019-06-17] VITALS (15 sets, daily range): BP systolic 103–129; BP diastolic 63–86; PULSE 20–115; RESP 16–20; TEMP 36.1–36.5; O2SAT 94–98
[2019-06-17 03:23] LABS: Hematocrit 36.1 % (37.0-47.0); Hemoglobin 11.8 g/dL (12.0-15.0); Mean Corpuscular HGB Conc 32.7 g/dl (32-36); Mean Corpuscular Hemoglobin 33.1 pg (26-34); Mean Corpuscular Volume 101.1 fl (80-100); Mean Platelet Volume 10.9 fl (7.4-10.4); Platelet Count Result 288 k/mm3 (150-375); Red Blood Count 3.57 M/mm3 (4.2-5.4); Red Cell Distribution Width 15.1 % (11.5-14.5)
[2019-06-17 03:34] LABS: INR 2.2; Prothrombin Time 24.1 Seconds (11.1-14.7)
[2019-06-17 03:39] LABS: Blood Urea Nitrogen 17 mg/dL (7-17); Calcium 9.5 mg/dL (8.4-10.2); Carbon Dioxide 30 mmol/L (22-30); Chloride 95 mmol/L (98-107); Estimated CRCL calculation 59 ml/min; Estimated Glomerular Filt Rate > 60; Glucose 102 mg/dL (65-105); Potassium 4.2 mmol/L (3.4-5.0); Sodium 135 mmol/L (137-145)
[2019-06-17 04:34] LABS: Band Neutrophils Percent 9 % (0-6); Eosinophils Absolute Manual 0.14 K/mm3 (0.02-0.5); Eosinophils Percent Manual 2 % (0-4); Lymphocytes Absolute Manual 1.47 K/mm3 (1.1-4.5); Metamyelocytes Percent 5 %; Monocytes Absolute Manual 0.42 K/mm3 (0.1-0.90); Monocytes Percent Manual 6 % (3-9); Myelocytes Percent 1 %; Neutrophils Absolute Manual 4.55 K/mm3 (1.7-7.2); Neutrophils Percent Manual 56 % (46-73); Total Cells Counted 100
[2019-06-17 04:36] LABS: Atypical Lymphocytes Present; Large Platelets Present; Platelet Estimate Adequate (Adequate)
[2019-06-17 04:37] LABS: Hypochromasia 1+ (NORMAL)
[2019-06-17] MEDS: DOXYCYCLINE HYCLATE 100 MG TABLET PO (06:27)
[2019-06-17] MEDS: METOPROLOL TARTRATE TAB 25 MG, METOPROLOL TARTRATE TAB 50 MG 75 MG PO (08:48)
[2019-06-17] MEDS: MULTIVITAMINS /C LUTEIN (CENTRUM SILVER) TABLET *BKC 1 TAB PO (08:49)
[2019-06-17] MEDS: AMIODARONE HCL 200 MG TABLET 400 MG PO (08:49)
--- NOTE | 2019-06-17 09:59 | PM.PNCARD ---
Progress Note: A&P Assessment and Plan (1) Atrial fibrillation with rapid ventricular response: Code(s): I48.91 - Unspecified atrial fibrillation Status: Acute Assessment and Plan: Rate is nicely controlled. Continue increased dose of metorprolol and amiodarone Continue warfarin at current dose and monitor closesly with antibiotics. Plan to do cardioversion when she has been therapeutic for at least 1 month. INR to be done on with results to go to Dr Gaviria's office Additional Plan OK to discharge from a cardiac standpoint See discharge instructions for follow up Plan discussed with Dr Gaviria [id number] 06/17/2019 Time Spent With Patient Time with patient: less than 15 minutes Subjective Date/time seen: 06/17/19 09:59 Interval history: Follow up for: atrial fibrillation, Date of service: 06/17/2019 Subjective:denies chest discomfort or lightheadedness. Shortness of breath with exertional activity improving Review of Systems Constitutional: Constitutional: Denies chills Eyes: Eyes: Denies blurry vision ENT: Denies dizziness Cardiovascular: Cardiovascular: Reports dyspnea (improving) Respiratory: Respiratory: Denies cough and Reports dyspnea (improving) Gastrointestinal: Gastrointestinal: Denies abdominal pain Genitourinary: Genitourinary: Denies hematuria Musculoskeletal: Musculoskeletal: Reports back pain Integumentary/Breasts: Skin/Breast: Denies rash Neurologic: Reports weakness Endocrine: Endocrine: Reports no additional endocrine complaints Hematologic/Lymphatic: Hematologic/Lymphatic: Reports no additional hematologic/lymphatic complaints Allergic/Immunologic: Allergic/Immunologic: Reports no additional allergic/immunologic complaints Exam Const: General: comfortable and no acute distress HENMT: Mouth: Yes moist mucous membranes Eyes: Sclera: sclerae normal Pupils: Equal, round and reactive pupils present Neck: Neck: supple and no JVD Resp: Auscultation: clear to auscultation bilaterally Cardio: Rhythm: abnormal rhythm regularly irregular Heart sounds: no murmurs Peripheral pulses: Peripheral pulses 2+ throughout GI: Auscultation: normal bowel sounds Skin: General skin exam: normal color Neuro: Cranial nerves: Yes Equal, round and reactive pupils present Extrem: General: normal to inspection and pedal edema present Objective Data Vital Signs Vital Signs: Vital Signs - 24 hr 06/16/19 10:00 06/16/19 10:55 06/16/19 12:00 Temperature 36.1 C L Pulse Rate 105 H 104 H 72 Respiratory Rate 18 Blood Pressure 120/62 Pulse Oximetry 97 06/16/19 14:00 06/16/19 14:18 06/16/19 14:26 Temperature Pulse Rate 88 93 89 Respiratory Rate 16 18 Blood Pressure Pulse Oximetry 06/16/19 16:00 06/16/19 18:00 06/16/19 19:46 Temperature 37.0 C 36.6 C Pulse Rate 99 104 H 80 Respiratory Rate 18 18 Blood Pressure 85/56 L 104/73 Pulse Oximetry 96 96 06/16/19 19:56 06/16/19 20:00 06/16/19 20:04 Temperature Pulse Rate 87 76 86 Respiratory Rate 18 18 Blood Pressure Pulse Oximetry 96 06/16/19 20:40 06/16/19 21:39 06/17/19 00:00 Temperature 36.5 C Pulse Rate 78 74 78 Respiratory Rate 20 Blood Pressure 129/73 Pulse Oximetry 98 06/17/19 02:00 06/17/19 02:19 06/17/19 02:28 Temperature Pulse Rate 88 80 84 Respiratory Rate 16 Blood Pressure Pulse Oximetry 06/17/19 04:00 06/17/19 05:57 06/17/19 08:14 Temperature 36.3 C L 36.2 C L Pulse Rate 20 L 78 95 Respiratory Rate 20 18 Blood Pressure 107/70 113/86 Pulse Oximetry 94 98 06/17/19 08:17 06/17/19 08:27 06/17/19 08:48 Temperature Pulse Rate 96 94 108 H Respiratory Rate 18 18 Blood Pressure Pulse Oximetry 06/17/19 08:49 Temperature Pulse Rate 108 H Respiratory Rate Blood Pressure Pulse Oximetry Intake/Output Intake/Output: Intake & Output 06/14/19 06/15/19 06/16/19 06/17/19 23:59 23:59 23:59 23
[2019-06-17] MEDS: HEPARIN SOD FLUSH 500 UNITS/5 ML SYRINGE IV PUSH (13:24)
--- NOTE | 2019-06-19 14:10 | PM.DS ---
DS: Diagnosis Admitting Diagnosis Admitting Diagnosis: Unspecified atrial fibrillation Discharge Diagnosis (1) Atrial fibrillation with rapid ventricular response: Code(s): I48.91 - Unspecified atrial fibrillation Status: Acute Assessment and Plan: Ventricular response around 80-90 now still. Cardiology has seen and increased the metoprolol 75 q12. Continuing p.o. amiodarone 400 qd Continue warfarin INR 2.2 day of discharge (2) URI (upper respiratory infection): Qualifiers: URI type: unspecified URI Qualified Code(s): J06.9 - Acute upper respiratory infection, unspecified Code(s): J06.9 - Acute upper respiratory infection, unspecified Status: Acute Assessment and Plan: Absolute neutrophil count well in normal range before discharge and borderlin on admision. Blood cultures negative since appeared to be more respiratory continued the ceftriaxone and doxycycline Doxycycline on d/c too (3) Laryngeal cancer: Code(s): C32.9 - Malignant neoplasm of larynx, unspecified Status: Chronic Assessment and Plan: Currently undergoing chemo with her oncologist and will follow up with them next week (4) Hypertension: Qualifiers: Hypertension type: unspecified Qualified Code(s): I10 - Essential (primary) hypertension Code(s): I10 - Essential (primary) hypertension Status: Chronic Assessment and Plan: Blood pressure toward the low side with increasing metoprolol (5) Anemia: Code(s): D64.9 - Anemia, unspecified Status: Chronic Assessment and Plan: Probable secondary to chemotherapy. During her last hospitalization B12 level was low and recheck 292 so will follow up with oncologist DS: Summary Hospital Course Hospital Course: 69-year-old white female with known AFib admitted with rapid atrial fibrillation thought precipitated by upper respiratory infection. With her leukopenia from her chemotherapy for her laryngeal carcinoma she was treated with antibiotics as well as updraft treatments. She continued to improve respiratory flores and her ventricular response decreased with increasing her metoprolol she will follow-up with her oncologist within the next week and follow-up with Dr. Gaviria as previously scheduled. Time Spent with Patient Time attestation: Total time spent providing and/or coordinating discharge services:35 minutes Exam Narrative: Exam Narrative: condition on discharge: blood pressure 104/62 pulse is 94 saturating 97% on room air afebrile lungs clear prolonged expiratory phase CV irregular has before extremities without edema she was feeling much better up and ambulating in the halls Discharge Plan Discharge Attending physician on discharge: Peng Barron Consulting providers: Evan Heath Discharging Clinician: Peng Barron Patient Disposition: Home, Self-Care Activity: as tolerated Diet: regular Discharge Instructions: CARDIOLOGY DISCHARGE ORDERS: ACTIVITY : Activity with precautions to avoid falls. Rise slowly from a seated or lying position Have blood drawn on June to check INR with results to go Dr Gaviria's office. The nurses will call with any adjustments in your warfarin dosing Follow up: with primary care provider 1-2 weeks After your INR is 2.0 or above for at least 4 weeks you will be scheduled for your cardioversion. Follow up with oncologist as scheduled Patient Instructions: Antibiotic Form, Warfarin (By mouth), A-fib (Atrial Fibrillation) (DC), How to Stop Smoking (DC), Yeast Infection (GEN), Sepsis (GEN) Stand Alone Forms: General Discharge Information Follow-up/Referrals: Jared Gaviria MD [Physician] - Keep Reg. Scheduled Appt. Discharge Medications: New warfarin [Coumadin] 4 mg Tablet 4 mg PO SuTuThFrSa@1700 20 Days RF: 0 metoprolol tartrate 50 mg tablet 50 mg PO Q12H Qty: 60 RF
== END 2019-06-17 13:39 | disposition home or self-care (01) | DRG 309 ==
LOC: ANHED 19:07 → ANHIMU 22:00
PROVIDERS: Admitting Provider Family Medicine; Emergency Provider Emergency Medicine; PCP Family Medicine; Visit Provider Internal Medicine
DX: I48.19 Other persistent atrial fibrillation (principal); C79.9 Secondary malignant neoplasm of unspecified site; Z79.899 Other long term (current) drug therapy; F17.210 Nicotine dependence, cigarettes, uncomplicated; C32.9 Malignant neoplasm of larynx, unspecified; M19.90 Unspecified osteoarthritis, unspecified site; Z85.3 Personal history of malignant neoplasm of breast; Z86.73 Personal history of transient ischemic attack (TIA), and cerebral infarction without residual deficits; E78.5 Hyperlipidemia, unspecified; I10 Essential (primary) hypertension; R91.1 Solitary pulmonary nodule; Z90.10 Acquired absence of unspecified breast and nipple; Z96.653 Presence of artificial knee joint, bilateral; D70.1 Agranulocytosis secondary to cancer chemotherapy; T45.1X5A Adverse effect of antineoplastic and immunosuppressive drugs, initial encounter; J06.9 Acute upper respiratory infection, unspecified; Z98.41 Cataract extraction status, right eye; H26.9 Unspecified cataract; D64.81 Anemia due to antineoplastic chemotherapy; B37.3 Candidiasis of vulva and vagina
CPT/HCPCS: 36415; 71045; 71046; 78582; 80048; 80053; 80162; 82607; 83605; 83880; 84443; 84484; 85025; 85380; 85610; 85730; 87040; 87081; 87804; 87880; 93005; 94640; 96361; 96365; 96367; 96375; 99291; A9270; A9540; A9558; J0282; J0456; J0696; J1160; J1642; J2405; J7030

== ENCOUNTER 2019-06-24 12:26 | Outpatient (CLI) | payer MEDICARE, SELFPAY ==
[2019-06-24 15:13] LABS: Hepatitis C Virus Antibody Negative (Negative)
== END 2019-06-24 12:27 | disposition home or self-care (01) ==
PROVIDERS: PCP Family Medicine; Visit Provider Family Medicine
DX: Z11.59 Encounter for screening for other viral diseases (principal)
CPT/HCPCS: 36415; 86803

== ENCOUNTER 2019-08-31 15:26 | Inpatient (IN) | payer MEDICARE, SELFPAY ==
[2019-08-31] VITALS (12 sets, daily range): BP systolic 82–144; BP diastolic 53–99; PULSE 93–126; RESP 12–20; TEMP 36.2–37.1; O2SAT 95–99; BMI 33.5
--- NOTE | ~2019-08-31 | CT_ITS ---
EXAMINATION: CT abdomen pelvis wo con DATE: 08/31/2019 15:55 INDICATION: Bowel obstruction presenting with nausea, vomiting and diarrhea. TECHNIQUE: Computed tomography (CT) of the abdomen and pelvis was performed without intravenous contr ast. Automated exposure control and iterative reconstruction technique were employed. The dose-length product was 882.40 mGy-cm. COMPARISON: 06/01/2019 FINDINGS: Mild peripheral reticular pattern in the bilateral lower lungs which could represent atelectasis and/ or mild pulmonary edema. Heart size is normal. Atherosclerotic coronary artery calcifications. Aortic valve Calcination. No pericardial or pleural effusion. Postoperative change of prior ventral hernia mesh repair. Multiple calcified gallstones in the dependent aspect of the gallbladder which is dilate d to 5.6 cm maximal diameter. There is however no evident gallbladder wall thickening or pericholecys tic inflammatory change to suggest acute cholecystitis. Diffuse increased density of the liver. Splen osis in the left upper quadrant. Pancreas, right kidney and bilateral adrenal glands are normal. 3.0 cm left renal cyst. There is mild colonic diverticulosis with a sigmoid predominance. There is no ad jacent inflammatory change to suggest diverticulitis. No bowel obstruction. Appendix is normal. Bladd er, uterus and bilateral adnexa are unremarkable. No free intraperitoneal gas or fluid. No pathologic ally enlarged abdominal or pelvic lymphadenopathy. There is calcified atherosclerosis of the aorta an d many of the other arteries. Chronic L3 compression fracture and L4 burst fracture with L3-L4 due diligence coordinator ior spinal fusion with bilateral vertical edna and pedicle screw fixation. There is a more recent like ly subacute L2 burst fracture with new sclerosis, approximately 20% central depression of the inferio r endplate and 3 mm retropulsion of the posterior wall. Moderate lumbar spondylosis. Moderate right a nd mild left hip osteoarthritis. IMPRESSION: 1. No bowel obstruction. 2. Cholelithiasis with dilated gallbladder but without evident wall thickening or pericholecystic inf lammatory change to suggest acute cholecystitis. Correlate for Harden sign and if there is clinical c oncern for acute cholecystitis could consider HIDA scan for further evaluation. 3. Bibasilar atelectasis and/or mild pulmonary edema. 4. Likely subacute L2 burst fracture lucency prior study. 5. Diffuse increased density of the liver which could be seen with hemachromatosis or iodine depositi on such as in the setting of chronic amiodarone use. Reviewed, dictated and finalized at location A. IMPRESSION: 1. No bowel obstruction. 2. Cholelithiasis with dilated gallbladder but without evident wall thickening or pericholecystic inflammatory change to suggest acute cholecystitis. Correlat e for Harden sign and if there is clinical concern for acute cholecystitis coul d consider HIDA scan for further evaluation. 3. Bibasilar atelectasis and/or mild pulmonary edema. 4. Likely subacute L2 burst fracture lucency prior study. 5. Diffuse increased density of the liver which could be seen with hemachromato sis or iodine deposition such as in the setting of chronic amiodarone use.
--- NOTE | 2019-08-31 16:03 | ED.NAVMDI ---
HPI - Nausea/Vomiting/Diarrhea General Chief complaint: Nausea/Vomiting/Diarrhea Stated complaint: possible bowel obstruction Time Seen by Provider: 08/31/19 15:30 History of Present Illness HPI Narrative: Patient presents with her for 2 days of abdominal pain nausea vomiting and diarrhea. She has a history of bowel obstruction. Her last bowel obstruction was last year. 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 She is currently on chemotherapy for her lung and laryngeal cancer. She still smokes. She last vomited this morning. The diarrhea has mucus but no blood. Her abdominal pain currently is 4 out of 10. She had chills yesterday and she has diaphoresis around her neck. She reports no fever. She denies shortness of breath. Related Data Home Medications Medication Instructions Recorded Confirmed Adults Multivitamin 1 tablet PO DAILY 06/13/19 06/13/19 calcium carbonate-vitamin D3 1 cap PO BID 06/13/19 06/13/19 [Calcium 600 with Vitamin D3] Allergies Allergy/AdvReac Type Severity Reaction Status Date / Time ioversol Allergy Severe Anaphylactic Verified 08/31/19 15:45 Shock codeine Allergy Intermediate Nausea and Verified 08/31/19 15:45 Vomiting iohexol Allergy Mild Unknown Verified 08/31/19 15:45 [From CONTRAST - CT, XRAY] Review of Systems Review of Systems: Narrative: CONSTITUTIONAL: Denies fever, but does have chills, and sweats. EYES: Denies visual changes, redness, or discharge. ENT: Denies rhinorrhea, congestion, sore throat, or otalgia. CARDIOVASCULAR: Denies chest pain, palpitations, or edema. RESPIRATORY: Denies cough or dyspnea. GASTROINTESTINAL:She has abdominal pain, nausea, vomiting and diarrhea. GENITOURINARY: Denies dysuria or hematuria. SKIN: Denies rash or itching. MUSCULOSKELETAL: Denies back pain, joint pain, or myalgia. NEUROLOGIC: Denies headache, numbness, or weakness. PSYCHIATRIC: Denies anxiety or depression. All systems reviewed & are unremarkable except as noted in HPI and below PMFSH Past Medical History Medical History Anemia Arthritis Atrial fibrillation (~2015) Back injury slipped disc, vertebra fx. Plates and screws Breast CA (~2015) Chemo and radiation Bronchitis Cataract, right eye Cataracts, bilateral (~2014) Only the right eye cataract was removed CVA (cerebral vascular accident) Briefly affected vision but has no residual Gallstones (~2014) Hyperlipidemia Was taken off of her statin Hypertension Laryngeal cancer (~2015) Receiving chemo radiation Lung nodule (~2015) Being monitored Obstruction of bowel (~2018) Port-A-Cath in place (~2015) Left chest Surgical History Surgical History H/O mastectomy (~2015) rt H/O splenectomy (~1995) H/O tubal ligation (~1978) History of back surgery (~2015) fusion of L3/L4: [place]: Dr. 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 They have 2 children. 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 Smoking packs per day: 0.5 Smoking cigarettes per day: 10.0 Years smoked: 50 Smoking pack-years: 25.00 Smoking status: Current every
[2019-08-31] MEDS: SODIUM CHLORIDE 0.9% IV 1,000 ML 999 ML IV CONT (16:21)
[2019-08-31 16:30] LABS: Basophils Percent Auto 0.3 % (0.2-1.2); Eosinophils Absolute Auto 0.1 K/mm3 (0-0.3); Eosinophils Percent Auto 0.7 % (0-4.4); Hematocrit 34.4 % (37.0-47.0); Hemoglobin 11.4 g/dL (12.0-15.0); Immature Granulocyte Absolute 0.02 K/mm3 (0.00-0.031); Immature Granulocyte Percent A 0.3 % (0-0.5); Lymphocytes Absolute Auto 0.58 K/mm3 (0.9-3.2); Lymphocytes Percent Auto 8.6 % (18.3-44.2); Mean Corpuscular HGB Conc 33.1 g/dl (32-36); Mean Corpuscular Hemoglobin 33.5 pg (26-34); Mean Corpuscular Volume 101.2 fl (80-100); Mean Platelet Volume 11.2 fl (7.4-10.4); Monocytes Absolute Auto 0.1 K/mm3 (0.1-0.6); Monocytes Percent Auto 1.3 % (2.6-8.5); Neutrophils Percent Auto 88.8 % (45.5-73.1); Platelet Count Result 247 k/mm3 (150-375); Red Cell Distribution Width 20.6 % (11.5-14.5); White Blood Count 6.8 K/mm3 (4.5-10.0)
--- NOTE | 2019-08-31 16:31 | ECG_ITS ---
Measurements Intervals [place] Rate: 128 P: MS: 0 QRS: -28 QRSD: 108 T: 53 QT: 366 QTc: 535 Interpretive Statements ATRIAL FIBRILLATION WITH RAPID VENTRICULAR RESPONSE DELAYED PRECORDIAL R/S TRANSITION NONSPECIFIC ST & T-WAVE ABNORMALITY- INF/LAT LEADS ABNORMAL ECG Electronically Signed On 09-01-2019 7:55:28 CDT by Thaddeus Stern D.O.
[2019-08-31 16:37] LABS: Platelet Estimate Adequate (Adequate)
[2019-08-31 16:38] LABS: Anisocytosis 1+ (NORMAL)
[2019-08-31 16:40] LABS: INR 3.1; Prothrombin Time 31.4 Seconds (11.1-14.7)
[2019-08-31 16:41] LABS: Alanine Aminotransferase 26 U/L (4-35); Albumin Level 3.6 g/dL (3.5-5.1); Alkaline Phosphatase 95 U/L (38-126); Aspartate Amino Transferase 30 U/L (14-36); Bilirubin,Total 1.4 mg/dL (0.2-1.3); Blood Urea Nitrogen 14 mg/dL (7-17); Calcium 8.7 mg/dL (8.4-10.2); Carbon Dioxide 30 mmol/L (22-30); Chloride 100 mmol/L (98-107); Estimated CRCL calculation 58 ml/min; Estimated Glomerular Filt Rate > 60; Glucose 102 mg/dL (65-105); Lipase 23 U/L (23-300); Potassium 3.4 mmol/L (3.4-5.0); Sodium 136 mmol/L (137-145)
[2019-08-31 16:41] LABS: Lactic Acid 1.7 mmol/L (0.7-2.1)
[2019-08-31 16:54] LABS: NT Pro B Type Natriuretic Pept 590 PG/ML (5-100); Troponin I < 0.012 ng/mL (0.000-0.034)
[2019-08-31] MEDS: ONDANSETRON INJ 4 MG/2 ML VIAL IV PUSH (17:15)
[2019-08-31] MEDS: MORPHINE SULFATE 2 MG/ML INJ IV PUSH (17:16)
--- NOTE | 2019-08-31 18:23 | ADMGEN ---
This patient, Shruthi Denson, was admitted to IMU Room 201-01. Patient/family oriented to hospital policies and general routines including ID bracelet, bed and alarms, visiting hours, pain management, procedures, bathroom and other care routines, personal items, smoking policy, room service/diet, and visiting hours. Valuables list has been completed. Information on how to activate the Rapid Response Team has been discussed. Patient/Family are encouraged to report perceived risks to care and to ask questions if they do not understand what they are told or what they should do.
--- NOTE | 2019-08-31 18:45 | PM.IMHP ---
H&P: HPI History of Present Illness Chief complaint: Nausea, vomiting, diarrhea. <Ursula Grissom PA-C - Last Filed: 08/31/19 22:47> Narrative: Shruthi Denson is a very pleasant 69-year-old female with atrial fibrillation on long-term warfarin, hypertension, and history of breast, lung, and laryngeal cancer who presented to the emergency department earlier this afternoon via private vehicle from home for evaluation of nausea, vomiting, and diarrhea. The patient was concerned that perhaps her symptoms were due to a bowel obstruction, of which she has had previously. She has been taking [place] since May for back pain due to compression fracture, and not surprisingly she developed constipation from that. She has been taking stool softeners, but developed diarrhea sometime last week and thus she stopped taking the stool softeners. Unfortunately, she continues to have loose stools, several times a day. For the past 2 days, she has had diffuse, intermittent abdominal cramping as well as nausea and vomiting. She has not been able to hold down any food or her pills, but today has been able to hold down some water. She did have her last chemotherapy infusion on Monday, but states that she tolerates it well and does not think her symptoms are related to that. Additionally, she mentions acute worsening of her chronic back pain. Yesterday while on the toilet, she reached back to clean herself with significant pain in the lumbar region for which she has been taking Tylenol. Imaging today shows a subacute burst fracture at L2. She denies bowel and bladder incontinence. No saddle anesthesia or paresthesias. She denies sick contacts and recent travel. She has not been on any antibiotics recently. She denies blood in the stool. No hematemesis. No GERD or indigestion symptoms. Denies dysphagia and concerns for aspiration. No chest pain, pleuritic pain, or palpitations. <Ursula Grissom PA-C - Last Filed: 08/31/19 22:47> Review of Systems Review of Systems: Narrative: Twelve systems were reviewed with pertinent positives and negatives as per HPI. No fever but she did have mild chills yesterday and felt that she was sweaty around her neck. That has resolved as of today. No headache. No cold or flu symptoms. She has mild shortness of breath, but was told to expect that with her chemotherapy. She has a chronic smoker's cough, which is unchanged. She attributes a few episodes of emesis this week to post-tussive emesis. She also has felt a bit lightheaded with position changes. No dysuria. Her back pain is worse when up ambulating, and is almost non-existent when lying still. Except as documented, all other systems were reviewed and are negative. <Ursula Grissom PA-C - Last Filed: 08/31/19 22:47> [facility] Past Medical History Medical History: Medical History (Updated 08/31/19 @ 22:43 by Ursula Grissom PA-C) Arthritis Cancer of right breast (~2015) Status post mastectomy. Cancer of right lung Currently receiving chemotherapy. Chronic anemia Chronic atrial fibrillation Maintained on metoprolol on amiodarone. On long-term anticoagulation with warfarin. Failed DC cardioversion previously. COPD (chronic obstructive pulmonary disease) CVA (cerebral vascular accident) Briefly affected peripheral vision, no residual deficits. Degenerative disc disease Gallstones (~2014) Hyperlipidemia No longer on statin. 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 Treated with chemotherapy and radiation. She had a recurrence in May 2019 and is now receiving chemotherapy at [facility]. Obstruction of bowel (~2018) Port-A-Cath in place (~2015) Left chest Tobacco dependence <Ursula Grissom PA-C - Last Filed: 08/31/19 22:47> Surgical History Surgical History: Surgical History (Updated 08/31/19 @ 22:34 by Ursula Grissom PA-C) History of bilateral knee
[2019-08-31 19:44] LABS: Troponin I < 0.012 ng/mL (0.000-0.034)
[2019-08-31] MEDS: CENTRAL LINE FLUSH 10 ML IV PUSH (20:52)
[2019-08-31] MEDS: ACETAMINOPHEN 325 MG TABLET 650 MG PO (20:57)
[2019-08-31] MEDS: METOPROLOL TARTRATE 50 MG TAB PO (22:50)
[2019-09-01] VITALS (13 sets, daily range): BP systolic 91–103; BP diastolic 50–76; PULSE 60–117; RESP 16–18; TEMP 36–36.6; O2SAT 94–100
[2019-09-01] MEDS: ACETAMINOPHEN 325 MG TABLET 650 MG PO ×3 (03:02→15:04)
[2019-09-01] MEDS: CENTRAL LINE FLUSH 10 ML IV PUSH ×3 (04:42→20:04)
[2019-09-01 05:05] LABS: Hematocrit 30.3 % (37.0-47.0); Hemoglobin 10.1 g/dL (12.0-15.0); Mean Corpuscular HGB Conc 33.3 g/dl (32-36); Mean Corpuscular Hemoglobin 33.3 pg (26-34); Mean Platelet Volume 11.1 fl (7.4-10.4); Platelet Count Result 203 k/mm3 (150-375); Red Blood Count 3.03 M/mm3 (4.2-5.4); Red Cell Distribution Width 20.5 % (11.5-14.5); White Blood Count 5.4 K/mm3 (4.5-10.0)
[2019-09-01 05:16] LABS: INR 3.5; Prothrombin Time 34.5 Seconds (11.1-14.7)
[2019-09-01 05:27] LABS: Blood Urea Nitrogen 13 mg/dL (7-17); Calcium 8.3 mg/dL (8.4-10.2); Carbon Dioxide 31 mmol/L (22-30); Chloride 102 mmol/L (98-107); Estimated CRCL calculation 74 ml/min; Estimated Glomerular Filt Rate > 60; Glucose 96 mg/dL (65-105); Potassium 3.3 mmol/L (3.4-5.0); Sodium 135 mmol/L (137-145)
[2019-09-01] MEDS: AMIODARONE HCL 200 MG TABLET 400 MG PO (08:49)
[2019-09-01] MEDS: KCL 30 MEQ/0.9% SOD CHL 1,000 ML 100 ML IV CONT ×2 (08:49→19:26)
[2019-09-01] MEDS: MULTIVITAMINS /C LUTEIN (CENTRUM SILVER) TABLET *BKC 1 TAB PO (08:50)
--- NOTE | 2019-09-01 10:14 | P.PNIM_ITS ---
Progress Note: A&P Assessment and Plan (1) Atrial fibrillation with rapid ventricular response: Code(s): I48.91 - Unspecified atrial fibrillation Status: Acute Assessment and Plan: * Likely due to patient not being able to hold down her amiodarone and metoprolol. * She was started on a Cardizem drip in the emergency department * Now tolerating PO amiodarone (chronic medication) * INR is 3.5, likely due to poor PO intake * Hold warfarin and f/u INR (2) Nausea and vomiting: Qualifiers: Vomiting type: unspecified Vomiting Intractability: unspecified Qualified Code(s): R11.2 - Nausea with vomiting, unspecified Code(s): R11.2 - Nausea with vomiting, unspecified Status: Acute Assessment and Plan: * Possibly as result of chemotherapy although she previously tolerated it well * Viral gastroenteritis is also consideration. * No CT findings to correlate for symptoms. * IVF, promethazine prn * Advance diet as tolerated * PT/OT * Improving with conservative management, so continue (3) Hypertension: Qualifiers: Hypertension type: unspecified Qualified Code(s): I10 - Essential (primary) hypertension Code(s): I10 - Essential (primary) hypertension Status: Chronic Assessment and Plan: * Remain soft * Continue IVF * Monitor (4) Tobacco dependence: Code(s): F17.200 - Nicotine dependence, unspecified, uncomplicated Status: Chronic Assessment and Plan: * As she has continued to smoke after suffering smoking related cancer, it is unlikely that she will cease (5) Lumbar burst fracture: Qualifiers: Encounter type: subsequent encounter Fracture type: closed Fracture healing: with routine healing Qualified Code(s): S32.001D - Stable burst fracture of unspecified lumbar vertebra, subsequent encounter for fracture with routine healing Code(s): S32.001A - Stable burst fracture of unspecified lumbar vertebra, initial encounter for closed fracture Status: Acute Assessment and Plan: * Patient reports acute worsening of her chronic back pain yesterday. * Imaging today shows subacute L2 burst fracture. * She is neurovascular intact throughout. * Tylenol available as needed. (6) Hypokalemia: Code(s): E87.6 - Hypokalemia Status: Acute Assessment and Plan: * Due to poor intake and GI losses * IV supplementation * F/u lab Subjective Date/time seen: 09/01/19 10:14 Interval history: 69 y/o f w/ metastatic laryngeal CA was admitted 08/30 with n/v, diarrhea, abdominal cramps, and weakness. No fever or bleeding. 08/31 No stool for over 24 hours. Still passing flatus. Denied dizziness, cp, sob, edema, abdominal pain. Still nauseated, but no further emesis. Review of Systems Review of Systems: All systems reviewed & are unremarkable except as noted in HPI and below Exam Narrative: Exam Narrative: HEENT: EOMI, PERRL, sclerae nonicteric, pharyngeal mucosa pink and intact NECK: No JVD CHEST: Clear to auscultation. Normal effort. HEART: NL S1/S2, regular, no murmur ABDOMEN: BS+, soft, nontender, no mass, no bruits EXTREMITIES: No cyanosis, edema, or clubbing NEUROLOGIC: CN intact and symmetric to inspection. MUSCULOSKELETAL: Tone and strength symmetric. PSYCH: Alert. Oriented to person, place, and time. Objective Data Vital Signs Vital Signs: Vital Signs - 24 hr
--- NOTE | 2019-09-01 10:14 | PM.IMPN ---
Progress Note: A&P Assessment and Plan (1) Atrial fibrillation with rapid ventricular response: Code(s): I48.91 - Unspecified atrial fibrillation Status: Acute Assessment and Plan: Likely due to patient not being able to hold down her amiodarone and metoprolol. She was started on a Cardizem drip in the emergency department Now tolerating PO amiodarone (chronic medication) INR is 3.5, likely due to poor PO intake Hold warfarin and f/u INR (2) Nausea and vomiting: Qualifiers: Vomiting type: unspecified Vomiting Intractability: unspecified Qualified Code(s): R11.2 - Nausea with vomiting, unspecified Code(s): R11.2 - Nausea with vomiting, unspecified Status: Acute Assessment and Plan: Possibly as result of chemotherapy although she previously tolerated it well Viral gastroenteritis is also consideration. No CT findings to correlate for symptoms. IVF, promethazine prn Advance diet as tolerated PT/OT Improving with conservative management, so continue (3) Hypertension: Qualifiers: Hypertension type: unspecified Qualified Code(s): I10 - Essential (primary) hypertension Code(s): I10 - Essential (primary) hypertension Status: Chronic Assessment and Plan: Remain soft Continue IVF Monitor (4) Tobacco dependence: Code(s): F17.200 - Nicotine dependence, unspecified, uncomplicated Status: Chronic Assessment and Plan: As she has continued to smoke after suffering smoking related cancer, it is unlikely that she will cease (5) Lumbar burst fracture: Qualifiers: Encounter type: subsequent encounter Fracture type: closed Fracture healing: with routine healing Qualified Code(s): S32.001D - Stable burst fracture of unspecified lumbar vertebra, subsequent encounter for fracture with routine healing Code(s): S32.001A - Stable burst fracture of unspecified lumbar vertebra, initial encounter for closed fracture Status: Acute Assessment and Plan: Patient reports acute worsening of her chronic back pain yesterday. Imaging today shows subacute L2 burst fracture. She is neurovascular intact throughout. Tylenol available as needed. (6) Hypokalemia: Code(s): E87.6 - Hypokalemia Status: Acute Assessment and Plan: Due to poor intake and GI losses IV supplementation F/u lab Subjective Date/time seen: 09/01/19 10:14 Interval history: 69 y/o f w/ metastatic laryngeal CA was admitted 08/30 with n/v, diarrhea, abdominal cramps, and weakness. No fever or bleeding. 08/31 No stool for over 24 hours. Still passing flatus. Denied dizziness, cp, sob, edema, abdominal pain. Still nauseated, but no further emesis. Review of Systems Review of Systems: All systems reviewed & are unremarkable except as noted in HPI and below Exam Narrative: Exam Narrative: HEENT: EOMI, PERRL, sclerae nonicteric, pharyngeal mucosa pink and intact NECK: No JVD CHEST: Clear to auscultation. Normal effort. HEART: NL S1/S2, regular, no murmur ABDOMEN: BS+, soft, nontender, no mass, no bruits EXTREMITIES: No cyanosis, edema, or clubbing NEUROLOGIC: CN intact and symmetric to inspection. MUSCULOSKELETAL: Tone and strength symmetric. PSYCH: Alert. Oriented to person, place, and time. Objective Data Vital Signs Vital Signs: Vital Signs - 24 hr 08/31/19 15:41 08/31/19 16:51 08/31/19 17:01 Temperature 97.8 F Pulse Rate 126 H 106 H 110 H Respiratory Rate 18 20 20 Blood Pressure 82/58 L 99/65 L 114/71 Pulse Oximetry 98 96 96 08/31/19 17:39 08/31/19 18:11 08/31/19 18:32 Temperature 98.8 F 98.3 F Pulse Rate 116 H 116 H 118 H Respiratory Rate 16 16 12 Blood Pressure 144/99 H 112/82 108/74 Pulse Oximetry 99 96 97 08/31/19 19:33 08/31/19 20:00 08/31/19 22:00 Temperature 97.2 F L Pulse Rate 115 H 113 H 93 Respiratory Rate 20 Blood Pressure 97/53 L
--- NOTE | 2019-09-01 11:20 | PCOTNOTE ---
OT attempted eval at 11:20. COMMUNITY FACILITATOR and patient both requested OT come back at a different time. OT asked if after lunch would be okay. COMMUNITY FACILITATOR reports she thinks patient will be moved to a different room by then. OT to check back in at a later time.
--- NOTE | 2019-09-01 13:45 | PC.NURSE ---
This patient, Shruthi Denson, was transferred to [facility] on 09/01/19 at 1345. Personal belongings sent with patient. Belongings list checked and signed with receiving RN. Report given to RENETTA Eldrdige. Appropriate documentation sent with patient.
[2019-09-01 15:32] LABS: Blood Urea Nitrogen 12 mg/dL (7-17); Carbon Dioxide 26 mmol/L (22-30); Chloride 105 mmol/L (98-107); Estimated CRCL calculation 74 ml/min; Estimated Glomerular Filt Rate > 60; Glucose 84 mg/dL (65-105); Potassium 3.5 mmol/L (3.4-5.0); Sodium 136 mmol/L (137-145)
[2019-09-01] MEDS: METOPROLOL TARTRATE 25 MG TABLET PO (20:03)
[2019-09-02 03:54] LABS: Hematocrit 30.4 % (37.0-47.0); Hemoglobin 9.8 g/dL (12.0-15.0); Mean Corpuscular HGB Conc 32.2 g/dl (32-36); Mean Corpuscular Hemoglobin 33.2 pg (26-34); Mean Corpuscular Volume 103.1 fl (80-100); Mean Platelet Volume 11.4 fl (7.4-10.4); Platelet Count Result 198 k/mm3 (150-375); Red Blood Count 2.95 M/mm3 (4.2-5.4); Red Cell Distribution Width 20.7 % (11.5-14.5); White Blood Count 2.8 K/mm3 (4.5-10.0)
[2019-09-02 03:58] VITALS: BP 102/53; PULSE 97; RESP 16; TEMP 36.2; O2SAT 97
[2019-09-02 03:59] LABS: Blood Urea Nitrogen 10 mg/dL (7-17); Calcium 8.3 mg/dL (8.4-10.2); Carbon Dioxide 27 mmol/L (22-30); Chloride 105 mmol/L (98-107); Estimated CRCL calculation 74 ml/min; Estimated Glomerular Filt Rate > 60; Glucose 90 mg/dL (65-105); INR 3.4; Magnesium 1.3 mg/dL (1.6-2.3); Potassium 3.7 mmol/L (3.4-5.0); Prothrombin Time 33.5 Seconds (11.1-14.7); Sodium 136 mmol/L (137-145)
[2019-09-02] MEDS: KCL 30 MEQ/0.9% SOD CHL 1,000 ML 100 ML IV CONT (05:10)
[2019-09-02] MEDS: CENTRAL LINE FLUSH 10 ML IV PUSH ×3 (05:12→19:53)
[2019-09-02 08:08] VITALS: PULSE 97
[2019-09-02] MEDS: AMIODARONE HCL 200 MG TABLET 400 MG PO (08:08)
[2019-09-02] MEDS: METOPROLOL TARTRATE 50 MG TAB PO (08:08)
[2019-09-02] MEDS: MULTIVITAMINS /C LUTEIN (CENTRUM SILVER) TABLET *BKC 1 TAB PO (08:08)
[2019-09-02] MEDS: MAGNESIUM SULF 2 GM/WATER 50ML 2 GM/50 ML BAG IVPB (08:08)
--- NOTE | 2019-09-02 10:46 | P.PNIM_ITS ---
Progress Note: A&P Assessment and Plan (1) Atrial fibrillation with rapid ventricular response: Code(s): I48.91 - Unspecified atrial fibrillation Status: Acute Assessment and Plan: * Likely due to patient not being able to hold down her amiodarone and metoprolol. * She was started on a Cardizem drip in ED, then d/c'ed on floor * Now tolerating PO amiodarone (chronic medication) * INR is 3.4, likely due to poor PO intake * Hold warfarin and f/u INR (2) Nausea and vomiting: Qualifiers: Vomiting type: unspecified Vomiting Intractability: unspecified Qualified Code(s): R11.2 - Nausea with vomiting, unspecified Code(s): R11.2 - Nausea with vomiting, unspecified Status: Acute Assessment and Plan: * Possibly as result of chemotherapy although she previously tolerated it well * Viral gastroenteritis is also consideration. * No CT findings to correlate for symptoms. * IVF, promethazine prn * Advance diet as tolerated * PT/OT * Improving with conservative management, so continue (3) Hypertension: Qualifiers: Hypertension type: unspecified Qualified Code(s): I10 - Essential (primary) hypertension Code(s): I10 - Essential (primary) hypertension Status: Chronic Assessment and Plan: * Remain soft * Continue IVF * Monitor (4) Tobacco dependence: Code(s): F17.200 - Nicotine dependence, unspecified, uncomplicated Status: Chronic Assessment and Plan: * As she has continued to smoke after suffering smoking related cancer, it is unlikely that she will cease (5) Lumbar burst fracture: Qualifiers: Encounter type: subsequent encounter Fracture type: closed Fracture healing: with routine healing Qualified Code(s): S32.001D - Stable burst fracture of unspecified lumbar vertebra, subsequent encounter for fracture with routine healing Code(s): S32.001A - Stable burst fracture of unspecified lumbar vertebra, initial encounter for closed fracture Status: Acute Assessment and Plan: * Patient reports acute worsening of her chronic back pain day prior to admission * Imaging 08/30 subacute L2 burst fracture. * Tylenol or [place] PRN (6) Hypokalemia: Code(s): E87.6 - Hypokalemia Status: Acute Assessment and Plan: * Due to poor intake and GI losses * IV supplementation for K and mag * 09/01 3.7 with mag 1.3 * F/u lab Subjective Date/time seen: 09/02/19 10:46 Interval history: 69 y/o f w/ metastatic laryngeal CA was admitted 08/30 with n/v, diarrhea, abdominal cramps, and weakness. No fever or bleeding. 08/31 No stool for over 24 hours. Still passing flatus. 09/01 Tolerated breakfast. Wanted to go home. Stated she felt fine. But began vomiting as I was leaving the room. Denied dizziness, cp, sob, edema, abdominal pain. Review of Systems Review of Systems: All systems reviewed & are unremarkable except as noted in HPI and below Exam Narrative: Exam Narrative: HEENT: EOMI, PERRL, sclerae nonicteric, pharyngeal mucosa pink and intact NECK: No JVD CHEST: Clear to auscultation. Normal effort. HEART: NL S1/S2, regular, no murmur ABDOMEN: BS+, soft, nontender, no mass, no bruits EXTREMITIES: No cyanosis, edema, or clubbing NEUROLOGIC: CN intact and symmetric to inspection. MUSCULOSKELETAL: Tone and strength symmetric. PSYCH: Alert. Oriented to person, place, and time. Objective Data Vital
--- NOTE | 2019-09-02 10:46 | PM.IMPN ---
Progress Note: A&P Assessment and Plan (1) Atrial fibrillation with rapid ventricular response: Code(s): I48.91 - Unspecified atrial fibrillation Status: Acute Assessment and Plan: Likely due to patient not being able to hold down her amiodarone and metoprolol. She was started on a Cardizem drip in ED, then d/c'ed on floor Now tolerating PO amiodarone (chronic medication) INR is 3.4, likely due to poor PO intake Hold warfarin and f/u INR (2) Nausea and vomiting: Qualifiers: Vomiting type: unspecified Vomiting Intractability: unspecified Qualified Code(s): R11.2 - Nausea with vomiting, unspecified Code(s): R11.2 - Nausea with vomiting, unspecified Status: Acute Assessment and Plan: Possibly as result of chemotherapy although she previously tolerated it well Viral gastroenteritis is also consideration. No CT findings to correlate for symptoms. IVF, promethazine prn Advance diet as tolerated PT/OT Improving with conservative management, so continue (3) Hypertension: Qualifiers: Hypertension type: unspecified Qualified Code(s): I10 - Essential (primary) hypertension Code(s): I10 - Essential (primary) hypertension Status: Chronic Assessment and Plan: Remain soft Continue IVF Monitor (4) Tobacco dependence: Code(s): F17.200 - Nicotine dependence, unspecified, uncomplicated Status: Chronic Assessment and Plan: As she has continued to smoke after suffering smoking related cancer, it is unlikely that she will cease (5) Lumbar burst fracture: Qualifiers: Encounter type: subsequent encounter Fracture type: closed Fracture healing: with routine healing Qualified Code(s): S32.001D - Stable burst fracture of unspecified lumbar vertebra, subsequent encounter for fracture with routine healing Code(s): S32.001A - Stable burst fracture of unspecified lumbar vertebra, initial encounter for closed fracture Status: Acute Assessment and Plan: Patient reports acute worsening of her chronic back pain day prior to admission Imaging 08/30 subacute L2 burst fracture. Tylenol or [place] PRN (6) Hypokalemia: Code(s): E87.6 - Hypokalemia Status: Acute Assessment and Plan: Due to poor intake and GI losses IV supplementation for K and mag 09/01 3.7 with mag 1.3 F/u lab Subjective Date/time seen: 09/02/19 10:46 Interval history: 69 y/o f w/ metastatic laryngeal CA was admitted 08/30 with n/v, diarrhea, abdominal cramps, and weakness. No fever or bleeding. 08/31 No stool for over 24 hours. Still passing flatus. 09/01 Tolerated breakfast. Wanted to go home. Stated she felt fine. But began vomiting as I was leaving the room. Denied dizziness, cp, sob, edema, abdominal pain. Review of Systems Review of Systems: All systems reviewed & are unremarkable except as noted in HPI and below Exam Narrative: Exam Narrative: HEENT: EOMI, PERRL, sclerae nonicteric, pharyngeal mucosa pink and intact NECK: No JVD CHEST: Clear to auscultation. Normal effort. HEART: NL S1/S2, regular, no murmur ABDOMEN: BS+, soft, nontender, no mass, no bruits EXTREMITIES: No cyanosis, edema, or clubbing NEUROLOGIC: CN intact and symmetric to inspection. MUSCULOSKELETAL: Tone and strength symmetric. PSYCH: Alert. Oriented to person, place, and time. Objective Data Vital Signs Vital Signs: Vital Signs - 24 hr 09/01/19 12:08 09/01/19 19:27 09/01/19 20:03 Temperature 96.9 F L 97.8 F Pulse Rate 60 117 H 117 H Respiratory Rate 16 18 Blood Pressure 93/50 L 94/76 L Pulse Oximetry 100 98 09/01/19 21:33 09/02/19 03:58 09/02/19 08:08 Temperature 97.1 F L Pulse Rate 107 H 97 97 Respiratory Rate 16 Blood Pressure 103/70 102/53 L Pulse Oximetry 97 Intake/Output Intake/Output: Intake & Output 08/30/19 08/31/19 09/01/19 09/02/19 23:59 23:59 23:59 2
[2019-09-02 13:57] LABS: Blood Urea Nitrogen 10 mg/dL (7-17); Calcium 7.9 mg/dL (8.4-10.2); Carbon Dioxide 24 mmol/L (22-30); Chloride 108 mmol/L (98-107); Estimated CRCL calculation 74 ml/min; Estimated Glomerular Filt Rate > 60; Glucose 98 mg/dL (65-105); Magnesium 2.1 mg/dL (1.6-2.3); Potassium 4.6 mmol/L (3.4-5.0); Sodium 135 mmol/L (137-145)
[2019-09-02] MEDS: KCL 20MEQ/0.9% SOD CHL 1,000 ML 80 ML IV CONT (14:53)
[2019-09-02 16:35] VITALS: BP 104/77; PULSE 96; RESP 18; TEMP 36.1; O2SAT 98
[2019-09-02 17:32] VITALS: PULSE 96
[2019-09-02] MEDS: METOPROLOL TARTRATE 25 MG TABLET PO (17:32)
[2019-09-02] MEDS: PROMETHAZINE HCL 25 MG/ML AMPUL 12.5 MG IV PUSH (17:34)
[2019-09-02 19:56] VITALS: BP 105/76; PULSE 120; RESP 18; TEMP 36.4; O2SAT 99
[2019-09-03] MEDS: KCL 20MEQ/0.9% SOD CHL 1,000 ML 80 ML IV CONT (03:24)
[2019-09-03 04:09] VITALS: BP 120/78; PULSE 102; RESP 16; TEMP 36.4; O2SAT 97
[2019-09-03] MEDS: CENTRAL LINE FLUSH 10 ML IV PUSH (04:20)
[2019-09-03 04:25] LABS: Hematocrit 28.1 % (37.0-47.0); Mean Corpuscular Hemoglobin 32.8 pg (26-34); Mean Corpuscular Volume 102.6 fl (80-100); Mean Platelet Volume 10.5 fl (7.4-10.4); Platelet Count Result 198 k/mm3 (150-375); Red Blood Count 2.74 M/mm3 (4.2-5.4); Red Cell Distribution Width 20.4 % (11.5-14.5)
[2019-09-03 04:35] LABS: White Blood Count 1.5 K/mm3 (4.5-10.0)
[2019-09-03 04:36] LABS: INR 2.4; Prothrombin Time 25.7 Seconds (11.1-14.7)
[2019-09-03 04:44] LABS: Blood Urea Nitrogen 10 mg/dL (7-17); Calcium 8.3 mg/dL (8.4-10.2); Carbon Dioxide 25 mmol/L (22-30); Chloride 105 mmol/L (98-107); Estimated CRCL calculation 74 ml/min; Estimated Glomerular Filt Rate > 60; Glucose 92 mg/dL (65-105); Magnesium 1.5 mg/dL (1.6-2.3); Potassium 3.7 mmol/L (3.4-5.0); Sodium 134 mmol/L (137-145)
[2019-09-03] MEDS: MAGNESIUM SULF 2 GM/WATER 50ML 2 GM/50 ML BAG IVPB (08:15)
[2019-09-03 08:17] VITALS: PULSE 102
[2019-09-03] MEDS: AMIODARONE HCL 200 MG TABLET 400 MG PO (08:17)
[2019-09-03 08:18] VITALS: PULSE 102
[2019-09-03] MEDS: MULTIVITAMINS /C LUTEIN (CENTRUM SILVER) TABLET *BKC 1 TAB PO (08:18)
[2019-09-03] MEDS: METOPROLOL TARTRATE 50 MG TAB PO (08:18)
[2019-09-03] MEDS: HEPARIN SOD FLUSH 500 UNITS/5 ML SYRINGE IV PUSH (12:19)
--- NOTE | 2019-09-04 18:16 | PM.DS ---
DS: Diagnosis Admitting Diagnosis Admitting Diagnosis: Unspecified atrial fibrillation Discharge Diagnosis (1) Atrial fibrillation with rapid ventricular response: Code(s): I48.91 - Unspecified atrial fibrillation Status: Acute Assessment and Plan: Likely due to patient not being able to hold down her amiodarone and metoprolol. She was started on a Cardizem drip in ED, then d/c'ed on floor tolerating PO amiodarone (chronic medication) > 24 hours prior to d/c INR is 2.4 day of discharge and eating well so will resume her usual warfarin 3 mg daily and have an INR drawn next week (2) Nausea and vomiting: Qualifiers: Vomiting type: unspecified Vomiting Intractability: unspecified Qualified Code(s): R11.2 - Nausea with vomiting, unspecified Code(s): R11.2 - Nausea with vomiting, unspecified Status: Acute Assessment and Plan: Possibly as result of chemotherapy although she previously tolerated it well Viral gastroenteritis is also consideration. No CT findings to correlate for symptoms. IVF, promethazine prn Advanced diet and was eating well prior to discharge with no vomiting or diarrhea PT/OT Improved with conservative management, so continue (3) Hypertension: Qualifiers: Hypertension type: unspecified Qualified Code(s): I10 - Essential (primary) hypertension Code(s): I10 - Essential (primary) hypertension Status: Chronic Assessment and Plan: Soft on admission but rebounded and will resume her usual medications at home (4) Tobacco dependence: Code(s): F17.200 - Nicotine dependence, unspecified, uncomplicated Status: Chronic Assessment and Plan: As she has continued to smoke after suffering smoking related cancer, it is unlikely that she will cease (5) Lumbar burst fracture: Qualifiers: Encounter type: subsequent encounter Fracture type: closed Fracture healing: with routine healing Qualified Code(s): S32.001D - Stable burst fracture of unspecified lumbar vertebra, subsequent encounter for fracture with routine healing Code(s): S32.001A - Stable burst fracture of unspecified lumbar vertebra, initial encounter for closed fracture Status: Acute Assessment and Plan: Patient reports acute worsening of her chronic back pain day prior to admission Imaging 08/30 subacute L2 burst fracture of 20% compression with chronic compression L3 and L4 Tylenol or Savanna PRN with script of 25 Savanna 325/5 given on discharge (6) Hypokalemia: Code(s): E87.6 - Hypokalemia Status: Acute Assessment and Plan: Due to poor intake and GI losses IV supplementation for K and mag 09/02 3.7 with mag 1.5 and magnesium was supplemented again IV DS: Summary Hospital Course Hospital Course: 69-year-old white female with chronic AFib admitted with nausea and vomiting and some loose stools some 10 days after a round of 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 No fever no chills. She was given IV fluids and antiemetics and nausea vomiting diarrhea subsided. INR was prolonged and came down and warfarin restarted since she is back on her diet She will have an INR next week. Show follow-up with her oncologist within the next 2 weeks for repeat laboratory including CBC. Found to have a new compression fracture in L2. Time Spent with Patient Time attestation: Total time spent providing and/or coordinating discharge services: 35 minutes Exam Narrative: Exam Narrative: Condition on discharge Blood pressure 120/78 pulse is 100 respirations 16 per minute saturating 97% on room air afebrile Lungs clear CV irregular as before Abdomen soft nontender bowel sounds normal active Extremities without edema good distal pulses Neuro alert pleasant cooperative DS: Data Data Completed and Pending Labs on day of discharge: Preliminary micro results at discharge 08/31/19 19:59
== END 2019-09-03 12:51 | disposition home or self-care (01) | DRG 309 ==
LOC: ANHED 17:30 → ANHIMU 17:55 → ANH3MED 09-01 14:34
PROVIDERS: Physician Assistant; Admitting Provider Internal Medicine; Emergency Provider Emergency Medicine; PCP Family Medicine; Visit Provider Internal Medicine
DX: I48.91 Unspecified atrial fibrillation (principal); S32.001A Stable burst fracture of unspecified lumbar vertebra, initial encounter for closed fracture; C79.9 Secondary malignant neoplasm of unspecified site; C32.9 Malignant neoplasm of larynx, unspecified; R11.2 Nausea with vomiting, unspecified; T45.1X5A Adverse effect of antineoplastic and immunosuppressive drugs, initial encounter; A08.4 Viral intestinal infection, unspecified; X58.XXXA Exposure to other specified factors, initial encounter; D64.9 Anemia, unspecified; E87.6 Hypokalemia; M19.90 Unspecified osteoarthritis, unspecified site; E78.5 Hyperlipidemia, unspecified; I11.0 Hypertensive heart disease with heart failure; I50.9 Heart failure, unspecified; I95.9 Hypotension, unspecified; F17.210 Nicotine dependence, cigarettes, uncomplicated; Z96.653 Presence of artificial knee joint, bilateral; Z85.3 Personal history of malignant neoplasm of breast; Z86.73 Personal history of transient ischemic attack (TIA), and cerebral infarction without residual deficits; Z98.1 Arthrodesis status; Z79.01 Long term (current) use of anticoagulants; Z90.81 Acquired absence of spleen
CPT/HCPCS: 36415; 74176; 80048; 80053; 83605; 83690; 83735; 83880; 84443; 84484; 85025; 85027; 85610; 87040; 93005; 96361; 96365; 96366; 96367; 96375; 97110; 97116; 97161; 97165; 99285; A9270; G0378; J1642; J2270; J2405; J2550; J3475; J3480; J7030

== ENCOUNTER 2019-09-25 07:36 | Emergency (ER) | payer MEDICARE, SELFPAY ==
--- NOTE | ~2019-09-25 | XR_ITS ---
XR chest 2V DATE: 09/25/2019 08:45 INDICATION: Shortness breath, cough. History of lung and throat cancer TECHNIQUE: 2 views COMPARISON: 06/16/2019 2 view chest FINDINGS: Left-sided Port-A-Cath catheter tip overlies the superior vena cava. Normal heart size. There is aortic calcification and tortuosity. No hilar or mediastinal enlargement. There is chronic mild scarring at the left lung base. The lungs are moderately hyperinflated. No pulmonary infiltrate or consolidation, pleural effusion or pulmonary vascular congestion or pneumo thorax. Diffuse osteopenia. Degenerative spurring of the thoracic and lumbar spine. Status post ventral abdominal wall repair. Evidence of posterior lumbar spinal fusion. There is anterior wedge compression fracture deformity of moderate degree involving an upper lumbar v ertebra. IMPRESSION: Left Port-A-Cath No active cardiopulmonary disease Compression fracture deformity of an upper lumbar vertebra Reviewed, dictated and finalized at location A.
[2019-09-25 07:40] VITALS: BP 119/55; PULSE 113; RESP 18; TEMP 36.9; O2SAT 97
--- NOTE | 2019-09-25 08:05 | ED.SOB ---
HPI - SOB/Dyspnea General Chief Complaint: Shortness of Breath/Dyspnea Stated Complaint: DEHYDRATION SOB Time Seen by Provider: 09/25/19 08:05 Source: patient Mode of arrival: ambulatory Limitations: no limitations Related Data Home Medications Medication Instructions Recorded Confirmed Adults Multivitamin 1 tablet PO DAILY 06/13/19 08/31/19 Allergies Allergy/AdvReac Type Severity Reaction Status Date / Time ioversol Allergy Severe Anaphylactic Verified 09/23/19 10:46 Shock codeine Allergy Intermediate Nausea and Verified 09/23/19 10:46 Vomiting iohexol Allergy Mild Unknown Verified 09/23/19 10:46 [From CONTRAST - CT, XRAY] [facility] Social History Social History Social History: The patient lives in [place] with her . They have 2 children. 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 She smoked up to 1.5 packs of cigarettes per day, now smokes 5 to 10 a day. She designates her , Jalil, as her surrogate decision maker and she wishes to be a full code. 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 [employer] Gender identity (if verbalized by the patient): Female Spiritual care concerns: No Agree to blood products: Yes Discharge Plan Discharge Prescriptions: No Action albuterol sulfate 90 mcg/actuation aerosol powdr breath activated 2 inhalation INHALATION Q6H PRN (Reason: shortness of breath) Qty: 1 RF: 5 lidocaine HCl 2 % solution 1 applic MUCOUS MEM QID PRN (Reason: pain) Qty: 100 RF: 0 acyclovir [Zovirax] 5 % ointment 1 applic TOPICAL 6XD PRN (Reason: aphthous ulcers) 7 Days Qty: 30 RF: 0 acyclovir 400 mg tablet 400 mg PO TID 7 Days Qty: 21 RF: 0 amiodarone [Pacerone] 200 mg Tablet 400 mg PO DAILY Qty: 60 RF: 3 Adults Multivitamin 18 mg iron-400 mcg-25 mcg Tablet 1 tablet PO DAILY RF: 0 metoprolol tartrate 50 mg tablet 50 mg PO Q12H Qty: 60 RF: 3 warfarin [Coumadin] 3 mg Tablet 3 mg PO DAILY@1700 Qty: 30 RF: 3 metoprolol tartrate 25 mg Tablet 25 mg PO Q12HR Qty: 60 RF: 3 hydrocodone-acetaminophen 5-325 mg Tablet 1 tab PO Q4H PRN (Reason: Pain Rated 4-6) Qty: 20 RF: 0
--- NOTE | 2019-09-25 08:17 | ED.NAVMDI ---
HPI - Nausea/Vomiting/Diarrhea General Chief complaint: Shortness of Breath/Dyspnea Stated complaint: DEHYDRATION SOB Time Seen by Provider: 09/25/19 08:05 Source: patient Mode of arrival: ambulatory Limitations: no limitations History of Present Illness HPI Narrative: 69-year-old woman who is currently undergoing treatment for small cell lung cancer and throat cancer comes in today complaining of diarrhea since the 15 of September. She states she is also now having vomiting, last episode was last night. She took a small amount of liquid by mouth today. She states she feels short of breath but she has no cough, fever, chest pain, new rhinorrhea or sore throat. She denies dysuria, hematuria, blood in her stool, melena, and rash. She states she gets short of breath when she gets dehydrated. She has had no recent travel or sick exposures. She last received IV chemotherapy on the 16 of September. MD elicited complaint: nausea, vomiting and diarrhea Onset (ago): day(s) (10) Description of vomiting: watery and bilious Description of diarrhea: watery Associated nausea: Yes Associated abdominal pain: Yes Location of pain: epigastric Radiation: does not radiate Pain consistency: intermittent Severity: moderate Quality: cramping Exacerbating factors: eating Relieving factors: none Associated symptoms: shortness of breath Related Data Home Medications Medication Instructions Recorded Confirmed Adults Multivitamin 1 tablet PO DAILY 06/13/19 09/25/19 Allergies Allergy/AdvReac Type Severity Reaction Status Date / Time ioversol Allergy Severe Anaphylactic Verified 09/23/19 10:46 Shock codeine Allergy Intermediate Nausea and Verified 09/23/19 10:46 Vomiting iohexol Allergy Mild Unknown Verified 09/23/19 10:46 [From CONTRAST - CT, XRAY] Review of Systems Constitutional: Constitutional: Denies chills, Reports fatigue, Denies fever(s) and Reports weakness Eyes: Eyes: Denies change in vision and Denies photophobia ENT: Denies dysphagia, Reports nasal congestion and Denies sore throat Cardiovascular: Cardiovascular: Denies chest pain and Denies radiating jaw, neck or arm pain Respiratory: Respiratory: Denies cough, Reports dyspnea and Denies wheezing Gastrointestinal: Gastrointestinal: Reports abdominal pain, Reports diarrhea, Reports nausea and Reports vomiting Genitourinary: Genitourinary: Denies hematuria, Denies nocturia and Denies dysuria Musculoskeletal: Musculoskeletal: Reports back pain, Denies arthralgias and Denies joint swelling Integumentary/Breasts: Skin/Breast: Denies pruritus, Denies erythema and Denies rash Neurologic: Denies vertigo, Denies dizziness, Denies syncope and Denies focal weakness Endocrine: Endocrine: Reports polydipsia and Denies polyuria Hematologic/Lymphatic: Hematologic/Lymphatic: Reports easy bleeding and Reports easy bruising Allergic/Immunologic: Allergic/Immunologic: Denies lip swelling and Denies wheezing PMFSH Past Medical History Medical History Arthritis Cancer of right breast (~2015) Status post mastectomy. Cancer of right lung Currently receiving chemotherapy. Chronic anemia Chronic atrial fibrillation Maintained on metoprolol on amiodarone. On long-term anticoagulation with warfarin. Failed DC cardioversion previously. COPD (chronic obstructive pulmonary disease) CVA (cerebral vascular accident) Briefly affected peripheral vision, no residual deficits. Degenerative disc disease Gallstones (~2014) Hyperlipidemia No longer on statin. 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 Treated with chemotherapy and radiation. She had a recurrence in May 2019 and is now receiving chemotherapy at [facility]. Obstruction of bowel (~2018) Port-A-Cath in place (~2015) Left chest Tobacco dependence Surgical History Surgical History (Reviewed 09/25/19 @ 08:
[2019-09-25 08:36] LABS: Hematocrit 31.4 % (35.0-42.0); Hemoglobin 10.6 g/dL (11.7-13.8); Mean Corpuscular HGB Conc 33.8 g/dL (32.0-36.0); Mean Corpuscular Hemoglobin 33.8 pg (27.0-31.0); Platelet Count Result 261 K/mm3 (150-420); Red Blood Count 3.14 M/mm3 (4.20-5.40); Red Cell Distribution Width 19.9 % (11.6-14.4)
[2019-09-25 08:40] LABS: White Blood Count 1.5 K/mm3 (4.8-10.8)
[2019-09-25 08:44] LABS: INR 3.5; Partial Thromboplastin Time 42.9 SEC (22.3-31.6); Prothrombin Time 34.6 Seconds (9.64-11.0)
[2019-09-25 08:45] LABS: Alanine Aminotransferase 24 U/L (14-59); Albumin Level 2.8 g/dL (3.4-5.0); Alkaline Phosphatase 100 U/L (46-116); Anion Gap 15.1 mmol/L (7-16); Aspartate Amino Transferase 23 U/L (15-37); Bilirubin,Total 0.4 mg/dL (0.00-1.00); Blood Urea Nitrogen 13 mg/dL (7-18); CRP 5.4 mg/dL (0.0-0.9); Calcium 8.7 mg/dL (8.5-10.1); Carbon Dioxide 26 mmol/L (21-32); Chloride 100 mmol/L (98-108); Estimated CRCL calculation 55 ml/min; Estimated Glomerular Filt Rate 51; Glucose 92 mg/dL (70-99); Lipase 55 U/L (73-393); Osmolality Calculated 286 mOsm/kg (285-295); Potassium 3.1 mmol/L (3.5-5.1); Sodium 138 mmol/L (136-145); Total Protein 6.5 g/dL (6.4-8.2)
[2019-09-25 08:50] LABS: Band Neutrophils Percent 1 % (0-6); Basophils Percent Manual 0 % (0-1); Eosinophils Absolute Manual 0.03 K/mm3 (0.02-0.5); Eosinophils Percent Manual 2 % (1-6); Lymphocytes Absolute Manual 0.72 K/mm3 (1.1-4.5); Lymphocytes Percent Manual 48 % (18-44); Monocytes Absolute Manual 0.07 K/mm3 (0.1-0.90); Monocytes Percent Manual 5 % (3-9); Neutrophils Absolute Manual 0.67 K/mm3 (1.7-7.2); Neutrophils Percent Manual 44 % (46-73); Nucleated Red Blood Cells 1 %; Platelet Estimate Adequate (Adequate); Total Cells Counted 100
[2019-09-25 08:51] LABS: Lactic Acid Reflex 1.6 mmol/L (0.4-2.0)
[2019-09-25] MEDS: ONDANSETRON INJ 4 MG/2 ML VIAL 8 MG IV PUSH (09:02)
[2019-09-25] MEDS: SODIUM CHLORIDE 0.9% IV 1,000 ML 999 ML IV CONT (09:02)
[2019-09-25 09:44] LABS: Add Urine Microscopic? YES; Appearance Urine Clear (Clear); Bilirubin Urine 1+ (Negative); Blood Urine Negative (Negative); Color Urine Yellow (Yellow); Glucose Urine UA Negative (Negative); Ketones Urine Negative (Negative); Leukocyte Esterase Ur 2+ LEU/UL (Negative); Nitrate Urine Negative (Negative); Protein Urine Negative (Negative); Specific Grav Ur 1.015 (1.010-1.020); Urobilinogen Urine 0.2 mg/dL (0.2-1.0); pH Urine 5.5 (5.0-8.0)
[2019-09-25 09:49] LABS: Bacteria Urine 3+ /hpf; RBC Urine 0-2 /hpf (0-2); Squamous Epithelial Cell Urine Moderate /hpf (Few)
[2019-09-25] MEDS: KCL 20 MEQ/SW 100 ML 100 ML 50 MEQ IVPB (10:09)
[2019-09-25 10:49] LABS: Occult Blood Negative (Negative)
--- NOTE | 2019-09-25 11:22 | PC.NURSE ---
pt feeling much better, dr paiz in with pt. pt to go home. report to RENETTA Morel
[2019-09-25 11:40] VITALS: BP 120/78; PULSE 84; RESP 15
== END 2019-09-25 12:00 | disposition home or self-care (01) ==
PROVIDERS: Emergency Provider Emergency Medicine; PCP Family Medicine
DX: E86.0 Dehydration (principal); E87.6 Hypokalemia; N39.0 Urinary tract infection, site not specified; I48.20 Chronic atrial fibrillation, unspecified; E78.5 Hyperlipidemia, unspecified; I10 Essential (primary) hypertension; Z86.73 Personal history of transient ischemic attack (TIA), and cerebral infarction without residual deficits; Z85.118 Personal history of other malignant neoplasm of bronchus and lung; J44.9 Chronic obstructive pulmonary disease, unspecified; F17.200 Nicotine dependence, unspecified, uncomplicated
CPT/HCPCS: 36415; 71046; 80053; 81001; 82272; 83605; 83690; 85025; 85610; 85730; 86140; 87040; 87045; 87046; 87077; 87086; 87088; 87186; 87269; 87272; 87324; 87427; 96361; 96365; 96375; 99284; J2405; J3480; J7030

== ENCOUNTER 2019-12-02 08:02 | Outpatient (RCR) | payer MEDICARE, SELFPAY ==
[2019-09-16 09:11] LABS: Prothrombin Time 52.2 Seconds (9.64-11.0)
[2019-09-16 09:40] LABS: INR 5.4
[2019-09-26 09:14] LABS: INR 3.6; Prothrombin Time 35.8 Seconds (9.64-11.0)
[2019-10-08 09:01] LABS: INR 1.5; Prothrombin Time 15.8 Seconds (9.64-11.0)
[2019-10-17 09:05] LABS: INR 1.5; Prothrombin Time 15.8 Seconds (9.64-11.0)
[2019-10-25 08:45] LABS: INR 1.6; Prothrombin Time 16.1 Seconds (9.64-11.0)
[2019-11-04 08:52] LABS: INR 2.2; Prothrombin Time 21.7 Seconds (9.64-11.0)
[2019-12-02 08:29] LABS: INR 3.3; Prothrombin Time 32.5 Seconds (9.64-11.0)
== END 2019-12-15 23:59 | disposition home or self-care (01) ==
LOC: CHSLAB 08:02
PROVIDERS: Internal Medicine; PCP Family Medicine; Visit Provider Specialist
DX: I48.0 Paroxysmal atrial fibrillation (principal); Z79.01 Long term (current) use of anticoagulants
CPT/HCPCS: 36415; 85610

== ENCOUNTER 2019-12-05 18:57 | Emergency (ER) | payer MEDICARE, SELFPAY ==
--- NOTE | ~2019-12-05 | XR_ITS ---
EXAMINATION: XR lumbar spine 2-3V DATE: 12/05/2019 20:35 INDICATION: Low back pain TECHNIQUE: Anteroposterior and lateral views of the lumbar spine, and cone-down lateral view of the l umbosacral junction were obtained. COMPARISON: CT, 08/31/2019 FINDINGS: There are changes of interval posterior fusion procedure at L3-4. Loss of vertebral body he ight at L2 and anterior wedging of L3 are unchanged since the comparison CT. A superior endplate defo rmity of L1 with approximately one third anterior vertebral body height loss is new since the compari son examination. Bone alignment is normal. Calcified atherosclerosis is noted. Changes of mesh ventra l hernia repair are noted. IMPRESSION: 1. L1 compression fracture with one third loss of anterior vertebral body height, new since the lalitha rison examination. 2. Stable L2 and L3 vertebral body fractures. Reviewed, dictated and finalized at location A. IMPRESSION: 1. L1 compression fracture with one third loss of anterior vertebral body heigh t, new since the comparison examination. 2. Stable L2 and L3 vertebral body fractures.
[2019-12-05 19:01] VITALS: BP 128/105; PULSE 74; RESP 18; TEMP 37.3; O2SAT 99
[2019-12-05 20:53] VITALS: BP 129/89; PULSE 62; RESP 18; O2SAT 99
[2019-12-05 20:57] LABS: Basophils Absolute Auto 0.1 K/mm3 (0.0-0.1); Basophils Percent Auto 0.6 % (0.2-1.2); Eosinophils Absolute Auto 0.2 K/mm3 (0-0.3); Eosinophils Percent Auto 1.9 % (0-4.4); Hematocrit 38.2 % (37.0-47.0); Hemoglobin 12.9 g/dL (12.0-15.0); Immature Granulocyte Absolute 0.05 K/mm3 (0.00-0.031); Immature Granulocyte Percent A 0.6 % (0-0.5); Lymphocytes Absolute Auto 1.52 K/mm3 (0.9-3.2); Mean Corpuscular HGB Conc 33.8 g/dl (32-36); Mean Corpuscular Hemoglobin 33.2 pg (26-34); Mean Corpuscular Volume 98.5 fl (80-100); Mean Platelet Volume 9.9 fl (7.4-10.4); Monocytes Absolute Auto 0.8 K/mm3 (0.1-0.6); Monocytes Percent Auto 10.3 % (2.6-8.5); Neutrophils Absolute Auto 5.4 K/mm3 (1.3-6.7); Neutrophils Percent Auto 67.6 % (45.5-73.1); Platelet Count Result 294 k/mm3 (150-375); Red Blood Count 3.88 M/mm3 (4.2-5.4)
[2019-12-05 21:08] LABS: Alanine Aminotransferase 25 U/L (4-35); Alkaline Phosphatase 97 U/L (38-126); Anion Gap 12.8 mmol/L (7-16); Aspartate Amino Transferase 40 U/L (14-36); Bilirubin,Total 0.4 mg/dL (0.2-1.3); Blood Urea Nitrogen 21 mg/dL (7-17); Calcium 9.4 mg/dL (8.4-10.2); Carbon Dioxide 25 mmol/L (22-30); Chloride 104 mmol/L (98-107); Estimated CRCL calculation 56 ml/min; Estimated Glomerular Filt Rate > 60; Glucose 107 mg/dL (65-105); Lipase 58 U/L (23-300); Potassium 3.8 mmol/L (3.4-5.0); Sodium 138 mmol/L (137-145)
[2019-12-05 21:32] LABS: Add Urine Microscopic? YES; Appearance Urine Clear (Clear); Bacteria Urine Trace /hpf; Bilirubin Urine Negative (Negative); Blood Urine Negative (Negative); Color Urine Yellow (Yellow); Glucose Urine UA Negative (Negative); Ketones Urine Negative (Negative); Leukocyte Esterase Ur Negative LEU/UL (Negative); Mucus Urine Rare /lpf; Nitrate Urine Negative (Negative); Protein Urine 1+ mg/dL (Negative); Squamous Epithelial Cell Urine Few /hpf (Few); WBC Urine 0-3 /hpf
--- NOTE | 2019-12-05 21:34 | ED.GENADULT ---
HPI - General Adult General Chief complaint: Abdominal Pain Stated complaint: abd, back pain Time Seen by Provider: 12/05/19 20:27 Source: patient and family History of Present Illness HPI narrative: 69-year-old female Being treated at [facility] every 2 weeks for throat and lung cancer Complains of a 2-day history of low back pain, no neurologic symptoms or findings, no injury or fall Hurts to change positions or be upright She has had prior lumbar surgery in [place] Onset (ago): day(s) Location: back Quality: sharp Pain Consistency: intermittent Relieving factors: none Exacerbating factors: movement Associated symptoms: nausea/vomiting Related Data Home Medications Medication Instructions Recorded Confirmed Adults Multivitamin 1 tablet PO DAILY 06/13/19 09/25/19 Allergies Allergy/AdvReac Type Severity Reaction Status Date / Time ioversol Allergy Severe Anaphylactic Verified 09/23/19 10:46 Shock codeine Allergy Intermediate Nausea and Verified 09/23/19 10:46 Vomiting iohexol Allergy Mild Unknown Verified 09/23/19 10:46 [From CONTRAST - CT, XRAY] Review of Systems Constitutional: Constitutional: Denies chills and Denies fever(s) Cardiovascular: Cardiovascular: Denies chest pain Respiratory: Respiratory: Denies cough and Denies dyspnea Gastrointestinal: Gastrointestinal: Reports nausea and Denies vomiting Genitourinary: Genitourinary: Reports nocturia and Denies dysuria Neurologic: Denies headache(s) and Denies weakness PMFSH Social History Social History Social History: The patient lives in [place] with her . They have 2 children. 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 She smoked up to 1.5 packs of cigarettes per day, now smokes 5 to 10 a day. She designates her , Jalil, as her surrogate decision maker and she wishes to be a full code. 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 [employer] Gender identity (if verbalized by the patient): Female Spiritual care concerns: No Agree to blood products: Yes Exam Const: General: alert Orientation/consciousness: patient oriented x3 Other: Chronically ill-appearing HENMT: Mouth: Yes moist mucous membranes Eyes: Conjunctivae: conjunctivae normal EOM: EOMs intact bilaterally Neck: Neck: no lymphadenopathy Chest: Other: Port in the left upper chest Resp: Auscultation: clear to auscultation bilaterally Cardio: Rate: regular rate Rhythm: regular rhythm GI: GI Palp: Yes Soft to palpation and No Tenderness to palpation present (GI) Back/Spine/Pelvis: Other: Back is not tender to palpation There is an old scar She is comfortable if supine but gets sharp pain with change of position and has moderate pain when sitting Skin: Rashes: no rashes Neuro: General: patient oriented x3, moves all extremities and no focal motor deficits Course Vital Signs Vital signs: Vital Signs Temperature 37.3 C 12/05/19 19:01 Pulse Rate 74 12/05/19 19:01 Respiratory Rate 18 12/05/19 19:01 Blood Pressure 128/105 H 12/05/19 19:01 Pulse Oximetry 99 12/05/19 19:01 Temperature 37.3 C 12/05/19 19:01 Pulse Rate 62 12/05/19 20:53 Respiratory Rate 18 12/05/19 20:53 Blood Pressure 129/89 12/05/19 20:53 Pulse Oximetry 99 12/05/19 20:53 Medical Decision Making MDM Narrative Medical decision making narrative: Discussed options for evaluation and follow-up with her She is not at all interested in going to [place] for a spine eval tonight, which should be okay since this is a pretty stable looking fracture, and can
[2019-12-05 22:43] VITALS: BP 132/70; PULSE 77; RESP 18; O2SAT 98
== END 2019-12-05 22:56 | disposition home or self-care (01) ==
PROVIDERS: Emergency Provider Emergency Medicine; PCP Family Medicine
DX: M48.56XA Collapsed vertebra, not elsewhere classified, lumbar region, initial encounter for fracture (principal); C32.9 Malignant neoplasm of larynx, unspecified; C78.00 Secondary malignant neoplasm of unspecified lung; F17.210 Nicotine dependence, cigarettes, uncomplicated
CPT/HCPCS: 36415; 51701; 72100; 80053; 81001; 83690; 85025; 99283

== ENCOUNTER 2019-12-15 17:32 | Emergency (ER) | payer MEDICARE, SELFPAY ==
--- NOTE | ~2019-12-15 | XR_ITS ---
XR abdomen/kub 1V 12/15/2019 18:27 Indication: Constipation Procedure: KUB Comparison: 08/04/2013 Findings: Bowel gas pattern nonobstructive. Moderate colonic fecal loading. There are surgical change s consistent with previous ventral hernia repair. There are spinal fusion changes at L3-4. There are gallstones. Impression: 1: Nonobstructive bowel gas pattern. Moderate colonic fecal loading. 2: Cholelithiasis. Reviewed, dictated and finalized at location A. Impression: 1: Nonobstructive bowel gas pattern. Moderate colonic fecal loading. 2: Cholelithiasis.
--- NOTE | 2019-12-15 17:47 | ED.ABDPAIN ---
HPI - Abdominal Pain General Chief Complaint: Abdominal Pain Stated Complaint: constipated Time Seen by Provider: 12/15/19 17:47 Source: patient and RN notes reviewed Mode of arrival: ambulatory Limitations: no limitations History of Present Illness HPI narrative: Patient been having some constipation. She has recently been placed on [place] for a a lumbar compression fracture. She says she has been taking some stool softeners. She had a small bowel movement on Monday but none since then. MD elicited complaint: abdominal pain Pertinent past history: constipation Onset (ago): day(s) (4) Pain Consistency: intermittent Location: diffuse Severity: moderate Quality: cramping and aching Radiation: none Migration to: no migration Exacerbating factors: eating Relieving factors: nothing Related Data Home Medications Medication Instructions Recorded Confirmed Adults Multivitamin 1 tablet PO DAILY 06/13/19 12/15/19 Allergies Allergy/AdvReac Type Severity Reaction Status Date / Time ioversol Allergy Severe Anaphylactic Verified 09/23/19 10:46 Shock codeine Allergy Intermediate Nausea and Verified 09/23/19 10:46 Vomiting iohexol Allergy Mild Unknown Verified 09/23/19 10:46 [From CONTRAST - CT, XRAY] Review of Systems Review of Systems: All systems reviewed & are unremarkable except as noted in HPI and below PMFSH Past Medical History Medical History Arthritis Cancer of right breast (~2015) Status post mastectomy. Cancer of right lung Currently receiving chemotherapy. Chronic anemia Chronic atrial fibrillation Maintained on metoprolol on amiodarone. On long-term anticoagulation with warfarin. Failed DC cardioversion previously. COPD (chronic obstructive pulmonary disease) CVA (cerebral vascular accident) Briefly affected peripheral vision, no residual deficits. Degenerative disc disease Gallstones (~2014) Hyperlipidemia No longer on statin. 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 Treated with chemotherapy and radiation. She had a recurrence in May 2019 and is now receiving chemotherapy at [facility]. Obstruction of bowel (~2018) Port-A-Cath in place (~2015) Left chest Tobacco dependence Surgical History Surgical History History of bilateral knee replacement (~2013) Right in 1999. Left in 2013. History of incisional hernia repair History of lumbar fusion Fused at L3-L4 per Dr. Jacinto [facility]. 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 History of tubal ligation (~1978) Family History Family History Mother Family history of malignant neoplasm Family history of heart disease in male family member before age 55 Patient's mother is Father Family history of malignant neoplasm of brain Sibling Cancer Other Family history of arthritis Social History Social History Social History: The patient lives in [place] with her . They have 2 children. 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 She smoked up to 1.5 packs of cigarettes per day, now smokes 5 to 10 a day. She designates her , Jalil, as her surrogate decision maker and she wishes to be a full code. 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
[2019-12-15 17:48] VITALS: BP 126/74; PULSE 63; RESP 18; TEMP 36.8; O2SAT 98
[2019-12-15] MEDS: MAGNESIUM CITRATE 300 ML BTL PO (18:55)
--- NOTE | 2019-12-15 19:30 | PC.NURSE ---
Pt able to produce moderate sized bowel movement and states she is feeling better and would like to go home.
[2019-12-15 19:50] VITALS: BP 128/70; PULSE 64; RESP 18; O2SAT 99
== END 2019-12-15 19:51 | disposition home or self-care (01) ==
PROVIDERS: Emergency Provider Emergency Medicine; PCP Family Medicine
DX: K59.03 Drug induced constipation (principal)
CPT/HCPCS: 74018; 99282; 99283; A9270

== ENCOUNTER 2019-12-17 10:51 | Emergency (ER) | payer MEDICARE, SELFPAY ==
--- NOTE | 2019-12-17 11:01 | ED.GENADULT ---
HPI - General Adult General Chief complaint: Recheck/Abnormal Lab/Rx Stated complaint: High INR Source: patient and RN notes reviewed Mode of arrival: ambulatory Limitations: no limitations History of Present Illness HPI narrative: patient is in were by physician office for INR at 8.9. Results were this morning. Patient has no other complaints and no bleeding. complaint: abnormal INR Onset (ago): hour(s) (1) Exacerbating factors: none Associated symptoms: denies other symptoms Related Data Home Medications Medication Instructions Recorded Confirmed Adults Multivitamin 1 tablet PO DAILY 06/13/19 12/15/19 metoprolol tartrate 75 mg PO Q12H 12/17/19 12/17/19 Allergies Allergy/AdvReac Type Severity Reaction Status Date / Time ioversol Allergy Severe Anaphylactic Verified 09/23/19 10:46 Shock codeine Allergy Intermediate Nausea and Verified 09/23/19 10:46 Vomiting iohexol Allergy Mild Unknown Verified 09/23/19 10:46 [From CONTRAST - CT, XRAY] Review of Systems Review of Systems: All systems reviewed & are unremarkable except as noted in HPI and below PMFSH Social History Social History Social History: The patient lives in [place] with her . They have 2 children. 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 She smoked up to 1.5 packs of cigarettes per day, now smokes 5 to 10 a day. She designates her , Jalil, as her surrogate decision maker and she wishes to be a full code. 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 [employer] Gender identity (if verbalized by the patient): Female Spiritual care concerns: No Agree to blood products: Yes Exam Const: General: healthy appearing, no acute distress and alert Nutritional Appearance: well nourished Orientation/consciousness: patient oriented x3 HENMT: Head: normal to inspection Face and sinus: normal facial exam Eyes: Conjunctivae: conjunctivae normal Pupils: Equal, round and reactive pupils present EOM: EOMs intact bilaterally Neck: Neck: normal visual inspection Resp: Effort & Inspection: normal respiratory effort Auscultation: clear to auscultation bilaterally Cardio: Rate: regular rate Rhythm: regular rhythm GI: Auscultation: normal bowel sounds Skin: General skin exam: normal color Rashes: no rashes Neuro: General: patient oriented x3, moves all extremities and no focal motor deficits Speech: normal speech Gait exam (Neuro): Normal gait present Extrem: General: normal to inspection Psych: Appearance: grossly normal and well kempt Mental Status: mental status grossly normal Affect: normal affect Attitude: cooperative Thought content: Yes Normal thought content present Course Course Emergency Course: Long discussion with patient regarding intervention and elevated INR levels due to Coumadin. Explained that with her current symptoms that she does not need any interventional therapy other than stopping her medication. Patient advised to hold her Coumadin today and tomorrow. Get INR checked on follow-up with primary care for further dosing instructions. Vital Signs Vital signs: Vital Signs Temperature 36.7 C 12/17/19 11:05 Pulse Rate 60 12/17/19 11:05 Respiratory Rate 16 12/17/19 11:05 Blood Pressure 138/77 12/17/19 11:05 Pulse Oximetry 96 12/17/19 11:05 Temperature 36.7 C 12/17/19 11:05 Pulse Rate 60 12/17/19 11:05 Respiratory Rate 20 12/17/19 11:44 Blood Pressure 138/77 12/17/19 11:05 Pulse Oximetry 96 12/17/19 11:05 Medical Decision Making Vital Signs Vital Signs: Vital Si
[2019-12-17 11:05] VITALS: BP 138/77; PULSE 60; RESP 16; TEMP 36.7; O2SAT 96
[2019-12-17 11:44] VITALS: RESP 20
== END 2019-12-17 11:45 | disposition home or self-care (01) ==
PROVIDERS: Emergency Provider Emergency Medicine; PCP Specialist
DX: R79.1 Abnormal coagulation profile (principal); T45.515S Adverse effect of anticoagulants, sequela; F17.200 Nicotine dependence, unspecified, uncomplicated
CPT/HCPCS: 36415; 85610; 99281; 99282

== ENCOUNTER 2019-12-30 09:09 | Outpatient (RCR) | payer MEDICARE, SELFPAY ==
[2019-12-17 09:48] LABS: Prothrombin Time 85.3 Seconds (9.64-11.0)
[2019-12-17 09:56] LABS: INR 8.9
[2019-12-19 09:53] LABS: Prothrombin Time 69.6 Seconds (9.64-11.0)
[2019-12-19 10:00] LABS: INR 7.2
[2019-12-23 09:02] LABS: INR 1.7; Prothrombin Time 16.8 Seconds (9.64-11.0)
[2019-12-27 09:11] LABS: INR 1.5; Prothrombin Time 15.3 Seconds (9.64-11.0)
[2019-12-30 09:38] LABS: INR 1.5; Prothrombin Time 15.5 Seconds (9.64-11.0)
== END 2020-03-16 23:59 | disposition home or self-care (01) ==
LOC: CHSLAB 09:09
PROVIDERS: PCP Family Medicine; Visit Provider Specialist
DX: I48.0 Paroxysmal atrial fibrillation (principal); Z79.01 Long term (current) use of anticoagulants
CPT/HCPCS: 36415; 85610

== ENCOUNTER 2020-04-27 12:01 | Outpatient (CLI) | payer MEDICARE, SELFPAY ==
--- NOTE | ~2020-04-27 | XR_ITS ---
XR chest 2V 04/27/2020 12:22 Indication: Cough with shortness of breath Procedure: 2 view chest Comparison: Comparison to multiple prior studies sequentially, with oldest reviewed study dated 09/2018. Findings: Size normal. There is atherosclerosis and ectasia of the aorta. Port catheter tip in the SV C. There is chronic left basilar atelectasis/scarring. There are mild compression fractures of the villasenor perior endplates of multiple vertebra at the thoracolumbar junction. No acute focal pneumonia, edema, pleural effusion or pneumothorax. Impression: 1: No acute cardiopulmonary disease. Reviewed, dictated and finalized at location A. TITATIVE ANALYST DEVELOPER Impression: 1: No acute cardiopulmonary disease.
[2020-04-27 12:17] LABS: Hematocrit 36.3 % (35.0-42.0); Hemoglobin 11.6 g/dL (11.7-13.8); Mean Corpuscular Hemoglobin 32.2 pg (27.0-31.0); Mean Corpuscular Volume 100.8 fL (78.0-102.0); Mean Platelet Volume 9.1 fl (9.2-11.8); Platelet Count Result 384 K/mm3 (150-420); Red Cell Distribution Width 17.5 % (11.6-14.4); White Blood Count 6.9 K/mm3 (4.8-10.8)
[2020-04-27 13:31] LABS: Alanine Aminotransferase 18 U/L (14-59); Albumin Level 3.1 g/dL (3.4-5.0); Alkaline Phosphatase 96 U/L (46-116); Anion Gap 9 mmol/L (8-16); Aspartate Amino Transferase 19 U/L (15-37); Bilirubin,Total 0.2 mg/dL (0.00-1.00); Blood Urea Nitrogen 13 mg/dL (7-18); Calcium 9.1 mg/dL (8.5-10.1); Carbon Dioxide 28 mmol/L (21-32); Chloride 105 mmol/L (98-108); Estimated Glomerular Filt Rate 55; Glucose 97 mg/dL (70-99); Osmolality Calculated 294 mOsm/kg (285-295); Potassium 3.9 mmol/L (3.5-5.1); Sodium 142 mmol/L (136-145); Total Protein 6.5 g/dL (6.4-8.2)
[2020-04-27 13:46] LABS: INR 1.9; Prothrombin Time 19.9 Seconds (9.50-12.10)
== END 2020-04-27 12:02 | disposition home or self-care (01) ==
PROVIDERS: PCP Family Medicine; Visit Provider Specialist
DX: I48.0 Paroxysmal atrial fibrillation (principal); Z79.01 Long term (current) use of anticoagulants; R05 Cough; J06.9 Acute upper respiratory infection, unspecified
CPT/HCPCS: 36415; 71046; 80053; 85027; 85610

== ENCOUNTER 2020-05-28 08:05 | Emergency (ER) | payer MEDICARE, SELFPAY ==
--- NOTE | ~2020-05-28 | XR_ITS ---
EXAMINATION: XR chest 2V DATE: 05/28/2020 08:51 INDICATION: Shortness of breath and cough. TECHNIQUE: Frontal and lateral views of the chest were obtained. COMPARISON: Chest 2 views 04/27/2020, CT abdomen and pelvis 08/31/19, chest CT 03/10/2015 FINDINGS: There is mild scarring at left lung base. There are airspace opacities in right perihilar r egion. No pleural effusion or pneumothorax. The heart size is normal. There is a left subclavian port with tip in superior vena cava. There are multiple chronic compression fractures in the spine. There are changes of posterior fusion procedure in lumbar spine. There are changes of ventral hernia repai r in the abdomen. IMPRESSION: 1. Stable airspace opacities in right perihilar region, likely malignancy and changes of radiation th erapy. 2. Stable mild scarring at left lung base. Reviewed, dictated and finalized at location A. SUPERVISOR IMPRESSION: 1. Stable airspace opacities in right perihilar region, likely malignancy and c hanges of radiation therapy. 2. Stable mild scarring at left lung base.
[2020-05-28 08:05] VITALS: BP 117/78; PULSE 80; RESP 16; TEMP 36.7; O2SAT 96
--- NOTE | 2020-05-28 08:21 | ECG_ITS ---
Measurements Intervals [place] Rate: 65 P: 50 [place]: 170 QRS: -14 QRSD: 101 T: 29 QT: 452 QTc: 472 Interpretive Statements SINUS RHYTHM DELAYED PRECORDIAL R/S TRANSITION BASELINE ARTIFACT- I, II, III, AVR, AVL, AVF BORDERLINE ECG Electronically Signed On 05-28-2020 9:06:02 ARROW POINT ATTACHER by Thaddeus Stern D.O.
[2020-05-28] MEDS: IPRATROPIUM 0.5 MG/ALBUTEROL SULFATE 2.5 MG AMPUL.NEB 3 ML INHALATION (08:29)
[2020-05-28 08:31] VITALS: PULSE 66; RESP 18; O2SAT 97
[2020-05-28 08:34] LABS: Basophils Absolute Auto 0.02 K/mm3 (0.00-0.10); Basophils Percent Auto 0.4 % (0.0-1.0); Eosinophils Absolute Auto 0.04 K/mm3 (0.02-0.50); Eosinophils Percent Auto 0.8 % (1.0-6.0); Hematocrit 35.2 % (35.0-42.0); Hemoglobin 11.4 g/dL (11.7-13.8); Immature Granulocyte Absolute 0.01 K/mm3 (0.00-0.00); Immature Granulocyte Percent A 0.2 % (0.0-0.0); Lymphocytes Absolute Auto 1.14 K/mm3 (1.10-4.50); Lymphocytes Percent Auto 23.5 % (18.0-42.0); Mean Corpuscular HGB Conc 32.4 g/dL (32.0-36.0); Mean Corpuscular Hemoglobin 30.6 pg (27.0-31.0); Mean Corpuscular Volume 94.4 fL (78.0-102.0); Monocytes Absolute Auto 0.39 K/mm3 (0.10-0.90); Neutrophils Absolute Auto 3.3 K/mm3 (1.7-7.2); Neutrophils Percent Auto 67.1 % (50.0-70.0); Platelet Count Result 409 K/mm3 (150-420); Red Blood Count 3.73 M/mm3 (4.20-5.40); Red Cell Distribution Width 18.6 % (11.6-14.4); White Blood Count 4.9 K/mm3 (4.8-10.8)
[2020-05-28 08:40] VITALS: PULSE 70; RESP 16; O2SAT 100
[2020-05-28 08:47] VITALS: PULSE 70; RESP 16; O2SAT 100
[2020-05-28 08:50] LABS: Alanine Aminotransferase 20 U/L (14-59); Alkaline Phosphatase 76 U/L (46-116); Anion Gap 9 mmol/L (8-16); Aspartate Amino Transferase 22 U/L (15-37); Bilirubin,Total 0.4 mg/dL (0.00-1.00); Blood Urea Nitrogen 14 mg/dL (7-18); Calcium 9.3 mg/dL (8.5-10.1); Carbon Dioxide 30 mmol/L (21-32); Chloride 99 mmol/L (98-108); Estimated Glomerular Filt Rate > 60; Glucose 111 mg/dL (70-99); Osmolality Calculated 287 mOsm/kg (285-295); Potassium 3.6 mmol/L (3.5-5.1); Sodium 138 mmol/L (136-145)
[2020-05-28] MEDS: methylPREDNISolone ACETATE 40 MG/ML VIAL 80 MG IM (08:51)
--- NOTE | 2020-05-28 09:07 | ED.URI ---
HPI - URI/Sore Throat General Chief Complaint: Upper Respiratory Infection Stated Complaint: SOB Source: patient and family Mode of arrival: ambulatory Limitations: no limitations History of Present Illness HPI Narrative: this is a 70-year-old female that presents with some increased cough with phlegm and mucus production with some mild shortness of breath O2 sats have been stable 96% on room air has an inhaler at home but overnight has felt that she had increasing shortness of breath. Patient denies any fever chills, no chest pain no nausea vomiting or abdominal pain. MD elicited complaint: cough Pertinent past history: COPD Onset (ago): day(s) Consistency: constant Severity: mild Related Data Home Medications Medication Instructions Recorded Confirmed metoprolol tartrate 75 mg PO Q12H 12/17/19 05/28/20 amiodarone 400 mg PO DAILY 05/28/20 05/28/20 fluorouracil 50 mg IV USEASDIRECTD 05/28/20 05/28/20 warfarin 3 mg PO EVERY OTHER DAY 05/28/20 05/28/20 warfarin 4 mg PO EVERY OTHER DAY 05/28/20 05/28/20 Allergies Allergy/AdvReac Type Severity Reaction Status Date / Time ioversol Allergy Severe Anaphylactic Verified 04/27/20 08:53 Shock codeine Allergy Intermediate Nausea and Verified 04/27/20 08:53 Vomiting iohexol Allergy Mild Unknown Verified 04/27/20 08:53 [From CONTRAST - CT, XRAY] Review of Systems Review of Systems: All systems reviewed & are unremarkable except as noted in HPI and below PMFSH Past Medical History Medical History Cancer of right breast (~2015) Status post mastectomy. Cancer of right lung Currently receiving chemotherapy. Chronic anemia Chronic atrial fibrillation Maintained on metoprolol on amiodarone. On long-term anticoagulation with warfarin. Failed DC cardioversion previously. Chronic back pain COPD (chronic obstructive pulmonary disease) CVA (cerebral vascular accident) Briefly affected peripheral vision, no residual deficits. Degenerative disc disease Gallstones (~2014) Hyperlipidemia No longer on statin. 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 Treated with chemotherapy and radiation. She had a recurrence in May 2019 and is now receiving chemotherapy at [facility] [place]. Obstruction of bowel (~2018) Osteoporosis Port-A-Cath in place (~2015) Left chest Tobacco dependence Surgical History Surgical History History of bilateral knee replacement (~2013) Right in 1999. Left in 2013. History of incisional hernia repair History of lumbar fusion Fused at L3-L4 per Dr. Jacinto [facility]. 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 History of tubal ligation (~1978) Family History Family History Mother Family history of malignant neoplasm Family history of heart disease in male family member before age 55 Patient's mother is Father Family history of malignant neoplasm of brain Sibling Cancer Other Family history of arthritis Social History Social History Social History: The patient lives in [place] with her . They have 2 children. 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 She smoked up to 1.5 packs of cigarettes per day, now smokes 5 to 10 a day. She designates her , Jalil, as her surrogate decision maker and she wishes to be a full code. Smoking packs per day: 0.5 Smoking cigarettes per day: 10.0 Years smoked: 50 Smoking pack-years: 25.00 Smoking status: Current every day smoker Tobacco type: cigarettes Second hand tobacco smoke exposure: No Alcohol intake
[2020-05-28 09:20] VITALS: BP 128/66; PULSE 75; O2SAT 95
== END 2020-05-28 09:20 | disposition home or self-care (01) ==
PROVIDERS: Emergency Provider Emergency Medicine; PCP Family Medicine
DX: J18.9 Pneumonia, unspecified organism (principal); Z85.3 Personal history of malignant neoplasm of breast; I48.20 Chronic atrial fibrillation, unspecified; Z79.01 Long term (current) use of anticoagulants; J44.9 Chronic obstructive pulmonary disease, unspecified; I10 Essential (primary) hypertension; M81.0 Age-related osteoporosis without current pathological fracture; F17.200 Nicotine dependence, unspecified, uncomplicated
CPT/HCPCS: 36415; 71046; 80053; 85025; 93005; 94640; 96372; 99283; J1030

== ENCOUNTER 2020-06-01 15:36 | Outpatient (RCR) | payer MEDICARE, SELFPAY ==
[2020-05-18 11:47] LABS: INR 1.6; Prothrombin Time 17.3 Seconds (9.50-12.10)
[2020-06-01 15:58] LABS: INR 2.6; Prothrombin Time 26.8 Seconds (9.50-12.10)
== END 2020-08-16 23:59 | disposition home or self-care (01) ==
LOC: CHSLAB 15:36
PROVIDERS: PCP Family Medicine; Visit Provider Specialist
DX: I48.91 Unspecified atrial fibrillation (principal)
CPT/HCPCS: 36415; 85610

== ENCOUNTER 2020-06-21 10:51 | Emergency (ER) | payer MEDICARE, SELFPAY ==
[2020-06-21] VITALS (7 sets, daily range): BP systolic 137–152; BP diastolic 78–83; PULSE 59–74; RESP 18–22; TEMP 36.6–36.8; O2SAT 95–100
--- NOTE | ~2020-06-21 | CT_ITS ---
EXAMINATION: CT soft tissue neck wo con DATE: 06/21/2020 12:10 INDICATION: Horse voice. Throat cancer. TECHNIQUE: Computed tomography (CT) of the neck was performed without intravenous contrast. Automated exposure control and iterative reconstruction technique were employed. The dose-length product was 4 98.59 mGy-cm. COMPARISON: Neck CT 04/13/2015 FINDINGS: There is thickening of the mucosal space involving the vallecula, preepiglottic fat, aryepi glottic folds, and vocal cords. There is a left subclavian port with tip in superior vena cava. There are no pathologically enlarged lymph nodes. There is calcified atherosclerosis in the proximal inter nal carotid arteries. There is moderate cervical spondylosis. IMPRESSION: 1. Mucosal thickening in the larynx and hypopharynx, consistent with malignancy and treatment changes . Reviewed, dictated and finalized at location A. TRONIC ENGRAVER IMPRESSION: 1. Mucosal thickening in the larynx and hypopharynx, consistent with malignancy and treatment changes.
--- NOTE | ~2020-06-21 | XR_ITS ---
EXAMINATION: XR chest 2V DATE: 06/21/2020 12:10 INDICATION: Dyspnea. TECHNIQUE: Frontal and lateral views of the chest were obtained. COMPARISON: Chest 2 views 05/28/2020 FINDINGS: There are airspace opacities in right perihilar region. There is mild scarring at left lung base. No pleural effusion or pneumothorax. The heart size is normal. There is a left effusion port w ith tip in superior vena cava. There are multiple chronic compression fractures in the spine. There a re changes of posterior fusion procedure in lumbar spine. There are changes of ventral mesh hernia re pair. IMPRESSION: 1. Stable airspace opacities in right perihilar region, likely malignancy and changes of radiation th erapy. 2. Stable mild scarring at left lung base. Reviewed, dictated and finalized at location A. ARCH AGRICULTURAL ENGINEER IMPRESSION: 1. Stable airspace opacities in right perihilar region, likely malignancy and c hanges of radiation therapy. 2. Stable mild scarring at left lung base.
--- NOTE | 2020-06-21 10:56 | ED.SOB ---
HPI - SOB/Dyspnea General Chief Complaint: Shortness of Breath/Dyspnea Stated Complaint: Sob Time Seen by Provider: 06/21/20 10:57 Source: patient Mode of arrival: wheelchair Limitations: no limitations History of Present Illness HPI Narrative: 70-year-old woman with a history of COPD, throat cancer and breast cancer comes in today complaining of shortness of breath, choking when swallowing liquids, and feeling like her throat is swelling. She states her symptoms started 1 week ago. She is using albuterol regularly but that does not seem to help. Patient states that she has had no productive cough, chest pain, fever, cough or cold symptoms, nausea, vomiting or neck pain. She is currently getting chemotherapy every 2 weeks. She had similar symptoms few weeks ago and received some albuterol, steroids and antibiotics on the 01 of June which made her feel better. MD elicited complaint: shortness of breath Pertinent past history: COPD Onset (ago): week(s) (1) Context: choking/aspiration Timing: constant and progressively worsening Exacerbating factors: other ( swallowing liquids) Relieving factors: nothing Treatment prior to arrival: bronchodilator Related Data Home oxygen amount: none Home Medications Medication Instructions Recorded Confirmed metoprolol tartrate 75 mg PO Q12H 12/17/19 06/21/20 amiodarone 400 mg PO DAILY 05/28/20 06/21/20 warfarin 3 mg PO EVERY OTHER DAY 05/28/20 06/21/20 warfarin 4 mg PO EVERY OTHER DAY 05/28/20 06/21/20 ipratropium bromide 0.02 % 2.5 ml INHALATION QID PRN 06/01/20 06/21/20 solution for inhalation Allergies Allergy/AdvReac Type Severity Reaction Status Date / Time ioversol Allergy Severe Anaphylactic Verified 06/01/20 09:40 Shock codeine Allergy Intermediate Nausea and Verified 06/01/20 09:40 Vomiting iohexol Allergy Mild Unknown Verified 06/01/20 09:40 [From CONTRAST - CT, XRAY] Review of Systems Constitutional: Constitutional: Denies chills, Denies fever(s) and Denies weakness Eyes: Eyes: Denies change in vision and Denies photophobia ENT: Reports dysphagia, Denies nasal congestion and Denies sore throat Cardiovascular: Cardiovascular: Denies chest pain and Denies radiating jaw, neck or arm pain Respiratory: Respiratory: Denies chest congestion, Denies cough, Reports dyspnea and Denies wheezing Gastrointestinal: Gastrointestinal: Denies abdominal pain, Denies nausea and Denies vomiting Genitourinary: Genitourinary: Denies nocturia and Denies dysuria Musculoskeletal: Musculoskeletal: Denies back pain, Denies arthralgias and Denies joint swelling Integumentary/Breasts: Skin/Breast: Denies pruritus, Denies erythema and Denies rash Neurologic: Denies vertigo, Denies dizziness and Denies syncope Endocrine: Endocrine: Denies polydipsia and Denies polyuria Hematologic/Lymphatic: Hematologic/Lymphatic: Denies easy bleeding and Denies easy bruising Allergic/Immunologic: Allergic/Immunologic: Denies lip swelling and Denies throat swelling [facility] Past Medical History Medical History Cancer of right breast (~2015) Status post mastectomy. Cancer of right lung Currently receiving chemotherapy. Chronic anemia Chronic atrial fibrillation Maintained on metoprolol on amiodarone. On long-term anticoagulation with warfarin. Failed DC cardioversion previously. Chronic back pain COPD (chronic obstructive pulmonary disease) CVA (cerebral vascular accident) Briefly affected peripheral vision, no residual deficits. Degenerative disc disease Gallstones (~2014) Hyperlipidemia No longer on statin. 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 Treated with chemotherapy and radiation. She had a recurrence in May 2019 and is now receiving chemotherapy at [facility]. Obstruction of bowel (~2018) Osteoporosis Port-A-Cath in place (~2015) Left chest Tobacc
--- NOTE | 2020-06-21 11:02 | ECG_ITS ---
Measurements Intervals [place] Rate: 57 P: 68 [place]: 174 QRS: -22 QRSD: 106 T: 79 QT: 465 QTc: 454 Interpretive Statements SINUS BRADYCARDIA INCOMPLETE RIGHT BUNDLE BRANCH BLOCK DELAYED PRECORDIAL R/S TRANSITION BASELINE ARTIFACT- I, AVR, AVL, AVF, V1-V3 BORDERLINE ECG Electronically Signed On 06-22-2020 7:57:48 PATIENT ACCOUNTING REPRESENTATIVE by Thaddeus Stern D.O.
[2020-06-21 11:42] LABS: Base Excess ABG 2.2 mmol/L (0-2); HCO3 ABG 26.6 mmol/L (23-29); Oxygen Content ABG 15.5 %vol (16.0-22.0); Oxygen Saturation ABG 95.5 % (95-97); Oxyhemoglobin 94.3 % (94-100); PCO2 ABG 40.6 mmHg (35-45); PO2 ABG 78.6 mmHg (75-85); Total Hemoglobin 11.6 g/dL; pH ABG 7.43 (7.35-7.45)
[2020-06-21 11:43] LABS: Device ROOM AIR; Modified Allen's Test Pass; Site Drawn LEFT RADIAL
[2020-06-21] MEDS: ALBUTEROL SULFATE NEB 2.5 MG/3 ML INH INHALATION (11:43)
[2020-06-21] MEDS: methylPREDNISolone SOD SUCC 125 MG VIAL IV PUSH (11:43)
[2020-06-21 11:46] LABS: SARS-CoV-2 Ag Negative (Negative)
[2020-06-21 11:49] LABS: Basophils Absolute Auto 0.04 K/mm3 (0.00-0.10); Basophils Percent Auto 0.6 % (0.0-1.0); Eosinophils Absolute Auto 0.15 K/mm3 (0.02-0.50); Eosinophils Percent Auto 2.2 % (1.0-6.0); Hematocrit 34.7 % (35.0-42.0); Hemoglobin 11.1 g/dL (11.7-13.8); Immature Granulocyte Absolute 0.02 K/mm3 (0.00-0.00); Immature Granulocyte Percent A 0.3 % (0.0-0.0); Lymphocytes Absolute Auto 1.51 K/mm3 (1.10-4.50); Lymphocytes Percent Auto 22.2 % (18.0-42.0); Mean Corpuscular Hemoglobin 30.4 pg (27.0-31.0); Mean Corpuscular Volume 95.1 fL (78.0-102.0); Mean Platelet Volume 9.8 fl (9.2-11.8); Monocytes Absolute Auto 0.72 K/mm3 (0.10-0.90); Monocytes Percent Auto 10.6 % (2.0-11.0); Neutrophils Absolute Auto 4.4 K/mm3 (1.7-7.2); Neutrophils Percent Auto 64.1 % (50.0-70.0); Platelet Count Result 330 K/mm3 (150-420); Red Blood Count 3.65 M/mm3 (4.20-5.40); Red Cell Distribution Width 20.4 % (11.6-14.4); White Blood Count 6.8 K/mm3 (4.8-10.8)
[2020-06-21 11:57] LABS: INR 3.2; Partial Thromboplastin Time 46.4 SEC (23.90-30.70); Prothrombin Time 32.4 Seconds (9.50-12.10)
[2020-06-21 12:01] LABS: Alanine Aminotransferase 26 U/L (14-59); Albumin Level 2.9 g/dL (3.4-5.0); Alkaline Phosphatase 76 U/L (46-116); Anion Gap 9 mmol/L (8-16); Aspartate Amino Transferase 24 U/L (15-37); Bilirubin,Total 0.3 mg/dL (0.00-1.00); Blood Urea Nitrogen 13 mg/dL (7-18); Carbon Dioxide 30 mmol/L (21-32); Chloride 101 mmol/L (98-108); Estimated CRCL calculation 43 ml/min; Estimated Glomerular Filt Rate 57; Glucose 95 mg/dL (70-99); Osmolality Calculated 290 mOsm/kg (285-295); Potassium 3.8 mmol/L (3.5-5.1); Sodium 140 mmol/L (136-145); Total Protein 6.9 g/dL (6.4-8.2); Troponin I 7.5 ng/L (0.00-60.4)
[2020-06-21 12:18] LABS: Appearance Urine Clear (Clear); Bilirubin Urine Negative (Negative); Color Urine Yellow (Yellow); Glucose Urine UA Negative (Negative); Ketones Urine Negative (Negative); Leukocyte Esterase Ur Negative LEU/UL (Negative); Nitrate Urine Negative (Negative); Protein Urine Negative (Negative); Specific Grav Ur 1.015 (1.010-1.020); Urobilinogen Urine 0.2 mg/dL (0.2-1.0); pH Urine 6.5 (5.0-8.0)
[2020-06-21 12:28] LABS: Add Urine Microscopic? YES; Bacteria Urine Trace /hpf; Blood Urine Trace-Intact (Negative); RBC Urine 0-2 /hpf (0-2); Squamous Epithelial Cell Urine Few /hpf (Few); WBC Urine None seen /hpf (0-3)
--- NOTE | 2020-06-21 12:35 | PC.NURSE ---
ERp placed call to pts. oncologist, awaiting call back from
--- NOTE | 2020-06-21 13:25 | PC.NURSE ---
Call back placed to oncology dept. at [facility][1]. for oncwilmer Killian Still awaiting call back.
--- NOTE | 2020-06-21 13:40 | PC.NURSE ---
Call back from [facility] stating onc all DrMaged in an emergency and no time line as to when she may call back. Pt. informed and POC discussed for d/c home and f/u in AM c her
== END 2020-06-21 14:08 | disposition home or self-care (01) ==
PROVIDERS: Emergency Provider Emergency Medicine; PCP Family Medicine
DX: R49.0 Dysphonia (principal); R13.10 Dysphagia, unspecified; Z85.3 Personal history of malignant neoplasm of breast; J44.9 Chronic obstructive pulmonary disease, unspecified; Z86.73 Personal history of transient ischemic attack (TIA), and cerebral infarction without residual deficits; I10 Essential (primary) hypertension; F17.200 Nicotine dependence, unspecified, uncomplicated; Z20.822 Contact with and (suspected) exposure to COVID-19
CPT/HCPCS: 36415; 36600; 70490; 71046; 80053; 81001; 82805; 84484; 85025; 85610; 85730; 87040; 87077; 87426; 93005; 94640; 96365; 96375; 99283; 99284; C9803; J0696; J2930

== ENCOUNTER 2020-06-22 12:09 | Inpatient (IN) | payer MEDICARE, SELFPAY ==
[2020-06-22] VITALS (8 sets, daily range): BP systolic 99–119; BP diastolic 73–77; PULSE 68–82; RESP 18–20; TEMP 36.3–36.8; O2SAT 96–99; BMI 27.4
--- NOTE | ~2020-06-22 | XR_ITS ---
EXAMINATION: XR barium swallow modified DATE: 06/24/2020 15:07 INDICATION: Dysphagia. TECHNIQUE: The patient was given barium-containing material of multiple consistencies to swallow by zhen walsh speech pathologist while I performed fluoroscopy. Dose-area product was 1.5 Gy-cm2. 2.5 minutes fluoroscopy time FINDINGS: Oral Stage: Within functional limits. Pharyngeal Phase: Mild vallecular and piriform sinus residue; otherwise unremarkable. No penetration or aspiration Cervical/Esophageal Stage: Within functional limits IMPRESSION: Modified esophagram findings as above. Please refer to the speech therapy report [facility]. Reviewed, dictated and finalized at Location A. Reviewed, dictated and finalized at location A. WARE QA MANAGER IMPRESSION: Modified esophagram findings as above. Please refer to the speech t herapy report for specific recommendations.
--- NOTE | 2020-06-22 12:35 | ADMGEN ---
This patient, Shruthi Denson, was admitted to 2nd Floor Room 204-2. Patient/family oriented to hospital policies and general routines including ID bracelet, bed and alarms, visiting hours, pain management, procedures, bathroom and other care routines, personal items, smoking policy, room service/diet, and visiting hours. Information on how to activate the Rapid Response Team has been discussed. Patient/Family are encouraged to report perceived risks to care and to ask questions if they do not understand what they are told or what they should do.
--- NOTE | 2020-06-22 12:45 | PC.NURSE ---
Patient reports she is currently receiving Chemo treatment at [facility]. States that she is supposed to have a treatment tomorrow, but her called and cancelled it. States she has had radiation in past but coded due to contrast during and MRI, so she no longer takes radiation or IV contrast.
--- NOTE | 2020-06-22 13:44 | PHAR ---
06/22/20 13:40 - nursing called and said pt. takes her coumadin in the evening 3mg Sat Sun Mon, 4mg Mon Mon. tls
[2020-06-22 14:52] LABS: Anion Gap 8 mmol/L (8-16); Aspartate Amino Transferase 25 U/L (15-37); Bilirubin,Total 0.2 mg/dL (0.00-1.00); Blood Urea Nitrogen 21 mg/dL (7-18); Calcium 9.2 mg/dL (8.5-10.1); Carbon Dioxide 30 mmol/L (21-32); Chloride 102 mmol/L (98-108); Estimated Glomerular Filt Rate 40; Glucose 161 mg/dL (70-99); Osmolality Calculated 296 mOsm/kg (285-295); Potassium 3.7 mmol/L (3.5-5.1); Sodium 140 mmol/L (136-145)
[2020-06-22 14:53] LABS: Alanine Aminotransferase 27 U/L (14-59); Alkaline Phosphatase 79 U/L (46-116)
[2020-06-22 15:01] LABS: Hematocrit 33.3 % (35.0-42.0); Hemoglobin 10.8 g/dL (11.7-13.8); Mean Corpuscular HGB Conc 32.4 g/dL (32.0-36.0); Mean Corpuscular Hemoglobin 30.9 pg (27.0-31.0); Mean Corpuscular Volume 95.4 fL (78.0-102.0); Platelet Count Result 330 K/mm3 (150-420); Red Blood Count 3.49 M/mm3 (4.20-5.40); Red Cell Distribution Width 20.7 % (11.6-14.4); White Blood Count 10.8 K/mm3 (4.8-10.8)
[2020-06-22 15:03] LABS: Basophils Absolute Auto 0.01 K/mm3 (0.00-0.10); Basophils Percent Auto 0.1 % (0.0-1.0); Immature Granulocyte Absolute 0.05 K/mm3 (0.00-0.00); Immature Granulocyte Percent A 0.5 % (0.0-0.0); Lymphocytes Absolute Auto 0.61 K/mm3 (1.10-4.50); Lymphocytes Percent Auto 5.6 % (18.0-42.0); Monocytes Absolute Auto 0.23 K/mm3 (0.10-0.90); Monocytes Percent Auto 2.1 % (2.0-11.0); Neutrophils Absolute Auto 9.9 K/mm3 (1.7-7.2); Neutrophils Percent Auto 91.7 % (50.0-70.0)
[2020-06-22 15:05] LABS: INR 3.5
[2020-06-22] MEDS: WARFARIN (*PBKC) 2 MG TABLET 4 MG PO (16:18)
[2020-06-22] MEDS: IPRATROPIUM 0.5 MG/ALBUTEROL SULFATE 2.5 MG AMPUL.NEB 3 ML INHALATION ×2 (17:36→22:47)
[2020-06-22] MEDS: MIRTAZAPINE 15 MG TABLET 7.5 MG PO (20:23)
[2020-06-23] VITALS (13 sets, daily range): BP systolic 118–125; BP diastolic 68–86; PULSE 65–77; RESP 16–20; TEMP 35.8–36.6; O2SAT 92–99
[2020-06-23] MEDS: METOPROLOL TARTRATE 25 MG TABLET 75 MG PO (02:18)
--- NOTE | 2020-06-23 03:07 | PM.IMHP ---
H&P: HPI History of Present Illness Date/Time: 06/23/20 03:07 Chief Complaint: positive blood culture Narrative: Shruthi Denson is a 70 year old female who was sent to the ER by he physician. She has a history or breast cancer, and esophageal cancer. She has had a port a cath since Jun. She reportedly has blood cultures done on the 7th when she was seen and one bottle grew gram positive bacilli. Because of this Mrs Denson was asked to be evaluated. She was admitted and two more blood cultures were done. Following this she was started on zosyn and vancomycin. Review of Systems Constitutional: Constitutional: Reports fatigue, Reports lethargy and Reports weakness Eyes: Eyes: Reports no additional eye complaints ENT: Comments: mild chronic dysphagia with thin liquids only. Cardiovascular: Cardiovascular: Reports no additional cardiovascular complaints Respiratory: Comments: mild chronic shortness of breath. Gastrointestinal: Gastrointestinal: Reports no additional gastrointestinal complaints Genitourinary: Genitourinary: Reports no additional female genitourinary complaints Musculoskeletal: Musculoskeletal: Reports no additional musculoskeletal complaints Integumentary/Breasts: Skin/Breast: Reports system reviewed and no additional complaints, except as docu Neurologic: Reports system reviewed and no additional complaints, except as documented Psychiatric: Psychiatric: Reports no additional psychiatric complaints PMFSH Past Medical History Medical History Cancer of right breast (~2015) Status post mastectomy. Cancer of right lung Currently receiving chemotherapy. Chronic anemia Chronic atrial fibrillation Maintained on metoprolol on amiodarone. On long-term anticoagulation with warfarin. Failed DC cardioversion previously. Chronic back pain COPD (chronic obstructive pulmonary disease) CVA (cerebral vascular accident) Briefly affected peripheral vision, no residual deficits. Degenerative disc disease Gallstones (~2014) Hyperlipidemia No longer on statin. 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 Treated with chemotherapy and radiation. She had a recurrence in May 2019 and is now receiving chemotherapy at [facility]. Obstruction of bowel (~2018) Osteoporosis Port-A-Cath in place (~2015) Left chest Tobacco dependence Surgical History Surgical History History of bilateral knee replacement (~2013) Right in 1999. Left in 2013. History of incisional hernia repair History of lumbar fusion Fused at L3-L4 per Dr. Jacinto [facility]. 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 History of tubal ligation (~1978) Family History Family History Mother Family history of malignant neoplasm Family history of heart disease in male family member before age 55 Patient's mother is Father Family history of malignant neoplasm of brain Sibling Cancer Other Family history of arthritis Social History Social History Social History: The patient lives in [place] with her . They have 2 children. 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 She smoked up to 1.5 packs of cigarettes per day, now smokes 5 to 10 a day. She designates her , Jalil, as her surrogate decision maker and she wishes to be a full code. Smoking packs per day: 1 Smoking cigarettes per day: 20.0 Years smoked: 45 Smoking pack-years: 45.00 Smoking status: Former smoker Tobacco type: cigarettes Second hand tobacco smoke exposure: No Alcohol intake: never Substance use:
[2020-06-23] MEDS: IPRATROPIUM 0.5 MG/ALBUTEROL SULFATE 2.5 MG AMPUL.NEB 3 ML INHALATION ×4 (05:35→22:53)
[2020-06-23 05:45] LABS: Hematocrit 31.9 % (35.0-42.0); Hemoglobin 10.2 g/dL (11.7-13.8); Mean Corpuscular Hemoglobin 30.6 pg (27.0-31.0); Mean Corpuscular Volume 95.8 fL (78.0-102.0); Mean Platelet Volume 9.8 fl (9.2-11.8); Platelet Count Result 331 K/mm3 (150-420); Red Blood Count 3.33 M/mm3 (4.20-5.40); Red Cell Distribution Width 21.1 % (11.6-14.4); White Blood Count 10.1 K/mm3 (4.8-10.8)
[2020-06-23 05:58] LABS: Anion Gap 7 mmol/L (8-16); Blood Urea Nitrogen 21 mg/dL (7-18); Carbon Dioxide 32 mmol/L (21-32); Chloride 105 mmol/L (98-108); Estimated CRCL calculation 38 ml/min; Estimated Glomerular Filt Rate 49; Glucose 86 mg/dL (70-99); Osmolality Calculated 300 mOsm/kg (285-295); Potassium 4.1 mmol/L (3.5-5.1); Sodium 144 mmol/L (136-145)
[2020-06-23 06:01] LABS: INR 3.7; Prothrombin Time 37.5 Seconds (9.50-12.10)
[2020-06-23] MEDS: AMIODARONE HCL 200 MG TABLET 100 MG BY MOUTH (10:02)
[2020-06-23] MEDS: predniSONE 20 MG TABLET 40 MG PO (10:03)
--- NOTE | 2020-06-23 13:19 | P.PN_ITS ---
Progress Note: A&P Assessment and Plan (1) Bacteremia: Code(s): R78.81 - Bacteremia Status: Acute Assessment and Plan: * It was reported by patient primary care physician Dr. Dia gram-positive bacilli and a blood culture collected on the seventh. * Awaiting for fax from primary care physician's office with results * Patient started on Zosyn and vancomycin day 1 * Repeat blood culture pending * WBCs within normal limits (2) COPD exacerbation: Code(s): J44.1 - Chronic obstructive pulmonary disease with (acute) exacerbation Status: Acute Assessment and Plan: * Stable * Continue inhalers (3) Port-A-Cath in place: Onset Date: Code(s): Z95.828 - Presence of other vascular implants and grafts Status: Inactive (4) Atrial fibrillation: Onset Date: Code(s): I48.91 - Unspecified atrial fibrillation Status: Chronic Assessment and Plan: * Controlled * Continue amiodarone and warfarin * EKG sinus bradycardia with a heart rate of 57 * Warfarin being managed by pharmacy INR slightly elevated on hold for today (5) Breast CA: Onset Date: Code(s): C50.919 - Malignant neoplasm of unspecified site of unspecified female breast Status: Acute (6) CVA (cerebral vascular accident): Code(s): I63.9 - Cerebral infarction, unspecified Status: Ruled-out (7) Hyperlipidemia: Qualifiers: Hyperlipidemia type: unspecified Qualified Code(s): E78.5 - Hyperlipidemia, unspecified Code(s): E78.5 - Hyperlipidemia, unspecified Status: Chronic Assessment and Plan: * Patient is not on any home medication (8) Hypertension: Qualifiers: Hypertension type: unspecified Qualified Code(s): I10 - Essential (primary) hypertension Code(s): I10 - Essential (primary) hypertension Status: Chronic Assessment and Plan: * Blood pressure stable * Continue metoprolol 75 mg every 12 hours * Vital signs as ordered * Will adjust medication as needed (9) Laryngeal cancer: Onset Date: Code(s): C32.9 - Malignant neoplasm of larynx, unspecified Status: Chronic Assessment and Plan: * Follow-up with oncologist (10) Acute kidney injury: Code(s): N17.9 - Acute kidney failure, unspecified Status: Acute Assessment and Plan: * Improving * Creatinine on admission 1.30 currently 1.09 baseline appears to be 0.80-1.00 * Will continue to monitor * Renal dose medication * Avoid nephrotoxic agents Review of Systems Review of Systems: All systems reviewed & are unremarkable except as noted in HPI and below (10 point system review) Exam Narrative: Exam Narrative: GENERAL: This is a well-nourished, well-developed patient, in no apparent distress. HEAD: normocephalic, atraumatic. EYES: PERRL. Sclera clear/white. Vision is grossly intact. EARS: External ears normal, auditory canals clear and without drainage, TMs normal without perforation. Hearing grossly intact. NOSE: External nose normal with no obvious nasal discharge, nares without redness, no rhinorrhea. THROAT: Mucous membranes moist, posterior pharynx clear. NECK: Neck supple, non-tender without lymphadenopathy, masses or thyromegaly. CARDIOVASCULAR: Regular rate and rhythm without murmurs, gallops, or rubs. RESPIRATORY: Clear to auscultation. Breath sounds equal bilaterally. No wheezes, rales, or rhonchi. GASTROINTESTINAL: Abdomen soft, non-tender, nondistended. Bowel
--- NOTE | 2020-06-23 13:19 | WPDPN ---
Progress Note: A&P Assessment and Plan (1) Bacteremia: Code(s): R78.81 - Bacteremia Status: Acute Assessment and Plan: It was reported by patient primary care physician Dr. Dia gram-positive bacilli and a blood culture collected on the seventh. Awaiting for fax from primary care physician's office with results Patient started on Zosyn and vancomycin day 1 Repeat blood culture pending WBCs within normal limits (2) COPD exacerbation: Code(s): J44.1 - Chronic obstructive pulmonary disease with (acute) exacerbation Status: Acute Assessment and Plan: Stable Continue inhalers (3) Port-A-Cath in place: Onset Date: ~2015 Code(s): Z95.828 - Presence of other vascular implants and grafts Status: Inactive (4) Atrial fibrillation: Onset Date: ~2015 Code(s): I48.91 - Unspecified atrial fibrillation Status: Chronic Assessment and Plan: Controlled Continue amiodarone and warfarin EKG sinus bradycardia with a heart rate of 57 Warfarin being managed by pharmacy INR slightly elevated on hold for today (5) Breast CA: Onset Date: ~2015 Code(s): C50.919 - Malignant neoplasm of unspecified site of unspecified female breast Status: Acute (6) CVA (cerebral vascular accident): Code(s): I63.9 - Cerebral infarction, unspecified Status: Ruled-out (7) Hyperlipidemia: Qualifiers: Hyperlipidemia type: unspecified Qualified Code(s): E78.5 - Hyperlipidemia, unspecified Code(s): E78.5 - Hyperlipidemia, unspecified Status: Chronic Assessment and Plan: Patient is not on any home medication (8) Hypertension: Qualifiers: Hypertension type: unspecified Qualified Code(s): I10 - Essential (primary) hypertension Code(s): I10 - Essential (primary) hypertension Status: Chronic Assessment and Plan: Blood pressure stable Continue metoprolol 75 mg every 12 hours Vital signs as ordered Will adjust medication as needed (9) Laryngeal cancer: Onset Date: ~2015 Code(s): C32.9 - Malignant neoplasm of larynx, unspecified Status: Chronic Assessment and Plan: Follow-up with oncologist (10) Acute kidney injury: Code(s): N17.9 - Acute kidney failure, unspecified Status: Acute Assessment and Plan: Improving Creatinine on admission 1.30 currently 1.09 baseline appears to be 0.80-1.00 Will continue to monitor Renal dose medication Avoid nephrotoxic agents Review of Systems Review of Systems: All systems reviewed & are unremarkable except as noted in HPI and below (10 point system review) Exam Narrative: Exam Narrative: GENERAL: This is a well-nourished, well-developed patient, in no apparent distress. HEAD: normocephalic, atraumatic. EYES: PERRL. Sclera clear/white. Vision is grossly intact. EARS: External ears normal, auditory canals clear and without drainage, TMs normal without perforation. Hearing grossly intact. NOSE: External nose normal with no obvious nasal discharge, nares without redness, no rhinorrhea. THROAT: Mucous membranes moist, posterior pharynx clear. NECK: Neck supple, non-tender without lymphadenopathy, masses or thyromegaly. CARDIOVASCULAR: Regular rate and rhythm without murmurs, gallops, or rubs. RESPIRATORY: Clear to auscultation. Breath sounds equal bilaterally. No wheezes, rales, or rhonchi. GASTROINTESTINAL: Abdomen soft, non-tender, nondistended. Bowel sounds are active. No hepato-splenomegaly, or palpable masses. No guarding. SKIN: warm, intact with no suspicious lesions or rash, good texture and turgor. NEURO: awake, alert, and oriented to person, place and time. There were no obvious focal neurologic abnormalities. Steady gait EXTREMITIES: Normal range of motion. No edema. No calf tenderness. Negative Homans sign bilaterally. BACK: Nontender without deformity or crepitance. No flank tendernes
[2020-06-23] MEDS: BENZONATATE 100 MG CAPSULE PO (18:18)
[2020-06-23 18:49] LABS: Add Urine Microscopic? NO; Appearance Urine Clear (Clear); Bilirubin Urine Negative (Negative); Blood Urine Negative (Negative); Color Urine Yellow (Yellow); Glucose Urine UA Negative (Negative); Ketones Urine Negative (Negative); Leukocyte Esterase Ur Negative (Negative); Nitrate Urine Negative (Negative); Protein Urine Negative (Negative); Urobilinogen Urine 0.2 mg/dL (0.2-1.0); pH Urine 5.5 (5.0-8.0)
[2020-06-23] MEDS: MIRTAZAPINE 15 MG TABLET 7.5 MG PO (21:34)
[2020-06-23] MEDS: guaiFENesin 12 HR 600 MG TABCR PO (21:34)
[2020-06-24] VITALS (12 sets, daily range): BP systolic 118–180; BP diastolic 69–77; PULSE 66–84; RESP 16–20; TEMP 36.3–36.6; O2SAT 92–99
[2020-06-24] MEDS: IPRATROPIUM 0.5 MG/ALBUTEROL SULFATE 2.5 MG AMPUL.NEB 3 ML INHALATION ×3 (05:32→17:30)
[2020-06-24 05:59] LABS: Hematocrit 30.5 % (35.0-42.0); Hemoglobin 9.8 g/dL (11.7-13.8); Mean Corpuscular HGB Conc 32.1 g/dL (32.0-36.0); Mean Corpuscular Hemoglobin 30.8 pg (27.0-31.0); Mean Corpuscular Volume 95.9 fL (78.0-102.0); Mean Platelet Volume 9.7 fl (9.2-11.8); Platelet Count Result 322 K/mm3 (150-420); Red Blood Count 3.18 M/mm3 (4.20-5.40); White Blood Count 9.6 K/mm3 (4.8-10.8)
[2020-06-24 06:08] LABS: Prothrombin Time 30.4 Seconds (9.50-12.10)
[2020-06-24 06:15] LABS: Alanine Aminotransferase 27 U/L (14-59); Albumin Level 2.8 g/dL (3.4-5.0); Alkaline Phosphatase 69 U/L (46-116); Anion Gap 10 mmol/L (8-16); Aspartate Amino Transferase 38 U/L (15-37); Bilirubin,Total 0.3 mg/dL (0.00-1.00); Blood Urea Nitrogen 18 mg/dL (7-18); Calcium 8.6 mg/dL (8.5-10.1); Carbon Dioxide 30 mmol/L (21-32); Chloride 104 mmol/L (98-108); Estimated CRCL calculation 40 ml/min; Estimated Glomerular Filt Rate 53; Glucose 86 mg/dL (70-99); Osmolality Calculated 298 mOsm/kg (285-295); Potassium 3.9 mmol/L (3.5-5.1); Sodium 144 mmol/L (136-145); Total Protein 5.6 g/dL (6.4-8.2)
[2020-06-24] MEDS: METOPROLOL TARTRATE 50 MG TAB PO (10:36)
[2020-06-24] MEDS: BENZONATATE 100 MG CAPSULE PO ×3 (10:37→18:02)
[2020-06-24] MEDS: AMIODARONE HCL 200 MG TABLET 100 MG BY MOUTH (10:37)
[2020-06-24] MEDS: guaiFENesin 12 HR 600 MG TABCR PO (10:37)
[2020-06-24] MEDS: predniSONE 20 MG TABLET 40 MG PO (10:37)
--- NOTE | 2020-06-24 13:58 | P.PN_ITS ---
Progress Note: A&P Assessment and Plan (1) Bacteremia: Code(s): R78.81 - Bacteremia <Litosocorro TetoLESLIE Li-C - Last Filed: 06/25/20 07:24> Status: Acute <Litosocorro Viri LESLIE Muhammad-C - Last Filed: 06/25/20 07:24> Assessment and Plan: * patient with the growth of C. perfringens.on BC from 06/21/20. Second blood culture preliminary reading no growth to date. * contacted ID for recommendation. Unable to give medical opinion over the phone due to complexity of the bacteria and the unknown. Was told that it was probably not due to normal russell. Patient will possibly stay to complete IV antibiotic therapy * Repeat blood culture pending * WBCs within normal limits and afebrile <LESLIE Maloney-C - Last Filed: 06/25/20 07:24> (2) COPD exacerbation: Code(s): J44.1 - Chronic obstructive pulmonary disease with (acute) exacerbation <LESLIE Maloney-C - Last Filed: 06/25/20 07:24> Status: Acute <Abi TetoLESLIE Li-C - Last Filed: 06/25/20 07:24> Assessment and Plan: * Stable * Continue inhalers <ANGIE MaloneyC - Last Filed: 06/25/20 07:24> (3) Port-A-Cath in place: Onset Date: ~2015 <LESLIE Maloney-C - Last Filed: 06/25/20 07:24> Code(s): Z95.828 - Presence of other vascular implants and grafts <LESLIE Maloney-C - Last Filed: 06/25/20 07:24> Status: Inactive <LESLIE Maloney-C - Last Filed: 06/25/20 07:24> (4) Atrial fibrillation: Onset Date: ~2015 <LESLIE Maloney-C - Last Filed: 06/25/20 07:24> Code(s): I48.91 - Unspecified atrial fibrillation <LESLIE Maloney-C - Last Filed: 06/25/20 07:24> Status: Chronic <Abi Muhammad STILL OPERATOR HELPER-C - Last Filed: 06/25/20 07:24> Assessment and Plan: * Controlled * Continue amiodarone and warfarin * EKG sinus bradycardia with a heart rate of 57 * Warfarin being managed by pharmacy INR within normal limits <Abi MuhammadHILDA - Last Filed: 06/25/20 07:24> (5) Breast CA: Onset Date: ~2015 <Abi Meredith HILDA Muhammad - Last Filed: 06/25/20 07:24> Code(s): C50.919 - Malignant neoplasm of unspecified site of unspecified female breast <Abi IreneHILDA Li - Last Filed: 06/25/20 07:24> Status: Acute <Abi MuhammadHILDA - Last Filed: 06/25/20 07:24> (6) CVA (cerebral vascular accident): Code(s): I63.9 - Cerebral infarction, unspecified <Abi IreneHILDA Li - Last Filed: 06/25/20 07:24> Status: Ruled-out <Abi MuhammadHILDA - Last Filed: 06/25/20 07:24> (7) Hyperlipidemia: Qualifiers: Hyperlipidemia type: unspecified Qualified Code(s): E78.5 - Hyperlipidemia, unspecified <Abi IreneMaged JbHILDA - Last Filed: 06/25/20 07:24> Code(s): E78.5 - Hyperlipidemia, unspecified <Abi IreneHILDA Li - Last Filed: 06/25/20 07:24> Status: Chronic <Abi MuhammadHILDA - Last Filed: 06/25/20 07:24> Assessment and Plan: * Patient is not on any home medication <HILDA Maloney - Last Filed: 06/25/20 07:24> (8) Hypertension: Qualifiers: Hypertension type: unspecified Qualified Code(s): I10 - Essential (primary) hypertension <HILDA Maloney - Last Filed: 06/25/20 07:24> Code(s): I10 - Essential (primary) hypertension <HILDA Maloney - Last Filed: 06/25/20 07:24> Status: Chronic <HILDA Maloney - Last Filed: 06/25/20 07:24> Assessment and Plan: *
--- NOTE | 2020-06-24 13:58 | WPDPN ---
Progress Note: A&P Assessment and Plan (1) Bacteremia: Code(s): R78.81 - Bacteremia <Litosocorro TetoLESLIE Li-C - Last Filed: 06/25/20 07:24> Status: Acute <Abi TetoLESLIE Li-C - Last Filed: 06/25/20 07:24> Assessment and Plan: patient with the growth of C. perfringens.on BC from 06/21/20. Second blood culture preliminary reading no growth to date. contacted ID for recommendation. Unable to give medical opinion over the phone due to complexity of the bacteria and the unknown. Was told that it was probably not due to normal russell. Patient will possibly stay to complete IV antibiotic therapy Repeat blood culture pending WBCs within normal limits and afebrile <LESLIE Maloney-C - Last Filed: 06/25/20 07:24> (2) COPD exacerbation: Code(s): J44.1 - Chronic obstructive pulmonary disease with (acute) exacerbation <LESLIE Maloney-C - Last Filed: 06/25/20 07:24> Status: Acute <LESLIE Maloney-C - Last Filed: 06/25/20 07:24> Assessment and Plan: Stable Continue inhalers <LESLIE Maloney-C - Last Filed: 06/25/20 07:24> (3) Port-A-Cath in place: Onset Date: ~2015 <LESLIE Maloney-C - Last Filed: 06/25/20 07:24> Code(s): Z95.828 - Presence of other vascular implants and grafts <LESLIE Maloney-C - Last Filed: 06/25/20 07:24> Status: Inactive <LESLIE Maloney-C - Last Filed: 06/25/20 07:24> (4) Atrial fibrillation: Onset Date: ~2015 <LESLIE Maloney-C - Last Filed: 06/25/20 07:24> Code(s): I48.91 - Unspecified atrial fibrillation <LESLIE Maloney-C - Last Filed: 06/25/20 07:24> Status: Chronic <LESLIE Maloney-C - Last Filed: 06/25/20 07:24> Assessment and Plan: Controlled Continue amiodarone and warfarin EKG sinus bradycardia with a heart rate of 57 Warfarin being managed by pharmacy INR within normal limits <HILDA Maloney - Last Filed: 06/25/20 07:24> (5) Breast CA: Onset Date: ~2015 <HILDA Maloney - Last Filed: 06/25/20 07:24> Code(s): C50.919 - Malignant neoplasm of unspecified site of unspecified female breast <HILDA Maloney - Last Filed: 06/25/20 07:24> Status: Acute <HILDA Maloney - Last Filed: 06/25/20 07:24> (6) CVA (cerebral vascular accident): Code(s): I63.9 - Cerebral infarction, unspecified <HILDA Maloney - Last Filed: 06/25/20 07:24> Status: Ruled-out <HILDA Maloney - Last Filed: 06/25/20 07:24> (7) Hyperlipidemia: Qualifiers: Hyperlipidemia type: unspecified Qualified Code(s): E78.5 - Hyperlipidemia, unspecified <HILDA Maloney - Last Filed: 06/25/20 07:24> Code(s): E78.5 - Hyperlipidemia, unspecified <HILDA Maloney - Last Filed: 06/25/20 07:24> Status: Chronic <HILDA Maloney - Last Filed: 06/25/20 07:24> Assessment and Plan: Patient is not on any home medication <HILDA Maloney - Last Filed: 06/25/20 07:24> (8) Hypertension: Qualifiers: Hypertension type: unspecified Qualified Code(s): I10 - Essential (primary) hypertension <HILDA Maloney - Last Filed: 06/25/20 07:24> Code(s): I10 - Essential (primary) hypertension <HILDA Maloney - Last Filed: 06/25/20 07:24> Status: Chronic <HILDA Maloney - Last Filed: 06/25/20 07:24> Assessment and Plan: Blood pressure stable Continue metoprolol 75 mg every 12 hours Vital signs as ordered Will adjust medication as needed <HILDA Maloney - Last Filed: 06/25/20 07:24> (9) Laryngeal cancer: Onset Date: ~2015 <HILDA Maloney - Last Filed: 06/25/20 07:24> Code(s): C32.9 - Malignant neoplasm of larynx, unspe
--- NOTE | 2020-06-24 15:05 | PCSTNOTE ---
Please refer to the Modified Barium Swallow Evaluation in the EMR.
[2020-06-24] MEDS: WARFARIN (*PBKC) 1 MG, WARFARIN (*PBKC) 2 MG 3 MG PO (16:05)
[2020-06-24 19:00] LABS: Vancomycin Trough 7.9 ug/mL (10.0-15.0)
[2020-06-24 19:04] LABS: Lactic Acid Reflex 3.2 mmol/L (0.4-2.0)
--- NOTE | 2020-06-24 19:19 | PC.NURSE ---
Patient alert and oriented. Nurse reviewed discharge instructions with patient and port a cath site care. Port a cath deaccessed. Pressure applied then dressing applied over site. Patient denies pain, SOB, concerns. Nurse reviewed swallowing instructions and nectar thick liquids. Patient and stated understanding of all instructions.
--- NOTE | 2020-06-24 19:35 | PC.NURSE ---
Nurse escorted patient to car via wheelchair.
[2020-06-24 21:43] LABS: Reflex Lactic Acid Yes or No Add Lactic
--- NOTE | 2020-06-26 14:32 | PC.NURSE ---
Pt states she received and understood her discharge instructions. Pt also states she had very good care .
== END 2020-06-24 19:35 | disposition home or self-care (01) | DRG 872 ==
PROVIDERS: Nurse Practitioner; Nurse Practitioner Family; Admitting Provider Family Medicine; PCP Family Medicine; Visit Provider Emergency Medicine
DX: R78.81 Bacteremia (principal); J44.1 Chronic obstructive pulmonary disease with (acute) exacerbation; I48.20 Chronic atrial fibrillation, unspecified; C34.91 Malignant neoplasm of unspecified part of right bronchus or lung; I10 Essential (primary) hypertension; C32.9 Malignant neoplasm of larynx, unspecified; R13.10 Dysphagia, unspecified; M54.9 Dorsalgia, unspecified; G89.29 Other chronic pain; M81.0 Age-related osteoporosis without current pathological fracture; Z96.653 Presence of artificial knee joint, bilateral; Z96.1 Presence of intraocular lens; Z79.01 Long term (current) use of anticoagulants; Z87.891 Personal history of nicotine dependence; Z95.828 Presence of other vascular implants and grafts; Z86.73 Personal history of transient ischemic attack (TIA), and cerebral infarction without residual deficits; Z85.3 Personal history of malignant neoplasm of breast; Z98.1 Arthrodesis status; Z90.81 Acquired absence of spleen; Z90.11 Acquired absence of right breast and nipple; Z98.41 Cataract extraction status, right eye
CPT/HCPCS: 36415; 80048; 80053; 80202; 81003; 83605; 85025; 85027; 85610; 87040; 92610; 92611; 94640; 96365; 96366; 96367; 97161; 97165; A9270; G0378; G0379; J2543; J3370; J7512

== ENCOUNTER 2020-07-06 06:12 | Inpatient (IN) | payer MEDICARE, SELFPAY ==
[2020-07-06] VITALS (11 sets, daily range): BP systolic 102–152; BP diastolic 79–93; PULSE 60–82; RESP 18–24; TEMP 36.2–37.1; O2SAT 96–100; BMI 26.7
--- NOTE | ~2020-07-06 | XR_ITS ---
EXAMINATION: XR chest 1V portable DATE: 07/06/2020 06:59 INDICATION: Shortness of breath TECHNIQUE: frontal view of the chest was obtained. COMPARISON: Chest radiograph dated 06/21/2020, 06/16/[address] dated 08/31/2019 FINDINGS: Left subclavian central venous port catheter with distal tip in the midsuperior vena cava. Unchanged chronic linear atelectasis/scarring at the lingula and right infrahilar region. No new airspace opaci ties, pulmonary edema, pleural effusion or pneumothorax. The cardiomediastinal silhouette is normal. IMPRESSION: 1. Stable appearance of chronic linear atelectasis/scarring at the lingula and right infrahilar regio n. Reviewed, dictated and finalized at location A. [facility] [employer] IMPRESSION: 1. Stable appearance of chronic linear atelectasis/scarring at the lingula and right infrahilar region.
--- NOTE | ~2020-07-06 | XR_ITS ---
EXAMINATION: XR chest 2V DATE: 07/08/2020 09:06 INDICATION: Shortness of breath TECHNIQUE: frontal and lateral views of the chest were obtained. COMPARISON: Chest radiograph dated 07/06/2020 and 05/28/[address] dated 03/10/2015 FINDINGS: Left subclavian central venous port catheter with distal tip in the midsuperior vena cava. Unchanged linear atelectasis/scarring at the lingula best appreciated on the lateral projection. Lungs are othe rwise clear with no new airspace opacities, pulmonary edema, pleural effusion or pneumothorax. Heart size is normal. There is enlargement of the central pulmonary arteries can be seen with pulmonary art erial hypertension. Postoperative change of prior ventral hernia mesh repair. Instrumented posterior spinal fusion in the lower lumbar spine with bilateral vertical edna and pedicle screw fixation. Sever al chronic compression fractures in the mid and lower thoracic spine. IMPRESSION: 1. Unchanged mild linear atelectasis/scarring at the lingula. No acute cardiopulmonary disease. 2. Enlargement of the central pulmonary arteries which can be seen with pulmonary arterial hypertensi on. Reviewed, dictated and finalized at location A. DRIVER IMPRESSION: 1. Unchanged mild linear atelectasis/scarring at the lingula. No acute cardiopu lmonary disease. 2. Enlargement of the central pulmonary arteries which can be seen with pulmona ry arterial hypertension.
--- NOTE | 2020-07-06 06:19 | ECG_ITS ---
Measurements Intervals [place] Rate: 72 P: 38 MA: 155 QRS: -19 QRSD: 106 T: 54 QT: 340 QTc: 373 Interpretive Statements SINUS RHYTHM DELAYED PRECORDIAL R/S TRANSITION MINIMAL Q WAVES- HIGH LATERAL LEADS BORDERLINE ST ABNORMALITY- HIGH LATERAL LEADS BASELINE ARTIFACT- II, III BORDERLINE ECG Electronically Signed On 07-06-2020 7:00:54 RN PHYSICIAN OFFICE by Thaddeus Stern D.O.
--- NOTE | 2020-07-06 06:25 | ED.SOB ---
HPI - SOB/Dyspnea General Chief Complaint: Shortness of Breath/Dyspnea Stated Complaint: Trouble Breathing Time Seen by Provider: 07/06/20 06:20 Source: patient and family Mode of arrival: ambulatory Limitations: no limitations History of Present Illness HPI Narrative: Patient states she has been getting increasingly short of breath over the past several days. She saw Dr Solorzano several days ago and was given steroids by him. She says she has not improved and has gradually been getting worse. She comes in because she feels she is getting worse. MD elicited complaint: shortness of breath Pertinent past history: COPD Onset (ago): day(s) Severity: moderate Exacerbating factors: exertion Relieving factors: rest Known history of: COPD Associated symptoms: denies other symptoms Related Data Home Medications Medication Instructions Recorded Confirmed metoprolol tartrate 75 mg PO Q12H 12/17/19 06/22/20 amiodarone 400 mg PO DAILY 05/28/20 06/22/20 warfarin 3 mg PO EVERY OTHER DAY 05/28/20 06/22/20 ipratropium bromide 0.02 % 2.5 ml INHALATION QID PRN 06/01/20 06/22/20 solution for inhalation metoprolol tartrate 25 mg PO HS 07/06/20 07/06/20 warfarin 4 mg PO DIRECTED 07/06/20 07/06/20 Allergies Allergy/AdvReac Type Severity Reaction Status Date / Time ioversol Allergy Severe Anaphylactic Verified 06/29/20 07:37 Shock codeine Allergy Intermediate Nausea and Verified 06/29/20 07:37 Vomiting iohexol Allergy Mild Unknown Verified 06/29/20 07:37 [From CONTRAST - CT, XRAY] Review of Systems Constitutional: Constitutional: Reports no additional constitutional complaints Eyes: Eyes: Reports no additional eye complaints ENT: Reports system reviewed and no additional complaints, except as documented Cardiovascular: Comments: She states she had chest tightness when at rest on Monday that lasted about 30 minutes. Then this resolved. She says she had a stress test by Dr Lopez four years ago. Respiratory: Respiratory: Reports no additional respiratory complaints Comments: Minimal cough, no sputum production. Uses Thick it in thin liquids. Gastrointestinal: Gastrointestinal: Reports no additional gastrointestinal complaints Genitourinary: Genitourinary: Reports no additional female genitourinary complaints Musculoskeletal: Comments: Right thigh has been sore lately Integumentary/Breasts: Skin/Breast: Reports system reviewed and no additional complaints, except as docu Neurologic: Reports system reviewed and no additional complaints, except as documented Psychiatric: Psychiatric: Reports no additional psychiatric complaints Endocrine: Endocrine: Reports no additional endocrine complaints Hematologic/Lymphatic: Hematologic/Lymphatic: Reports no additional hematologic/lymphatic complaints Allergic/Immunologic: Allergic/Immunologic: Reports no additional allergic/immunologic complaints PMFSH Past Medical History Medical History Cancer of right breast (~2015) Status post mastectomy. Cancer of right lung Currently receiving chemotherapy. Chronic anemia Chronic atrial fibrillation Maintained on metoprolol on amiodarone. On long-term anticoagulation with warfarin. Failed DC cardioversion previously. Chronic back pain COPD (chronic obstructive pulmonary disease) CVA (cerebral vascular accident) Briefly affected peripheral vision, no residual deficits. Degenerative disc disease Gallstones (~2014) Hyperlipidemia No longer on statin. 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 Treated with chemotherapy and radiation. She had a recurrence in May 2019 and is now receiving chemotherapy at [facility]. Obstruction of bowel (~2018) Osteoporosis Port-A-Cath in place (~2015) Left chest Tobacco dependence Surgical History Surgical History (Reviewed 07/06/20 @ 06:39 by Briseida Milligan
[2020-07-06 06:34] LABS: Basophils Absolute Auto 0.03 K/mm3 (0.00-0.10); Basophils Percent Auto 0.3 % (0.0-1.0); Eosinophils Absolute Auto 0.18 K/mm3 (0.02-0.50); Eosinophils Percent Auto 1.7 % (1.0-6.0); Hematocrit 37.4 % (35.0-42.0); Immature Granulocyte Absolute 0.06 K/mm3 (0.00-0.00); Immature Granulocyte Percent A 0.6 % (0.0-0.0); Lymphocytes Absolute Auto 1.76 K/mm3 (1.10-4.50); Lymphocytes Percent Auto 16.8 % (18.0-42.0); Mean Corpuscular HGB Conc 32.1 g/dL (32.0-36.0); Mean Corpuscular Hemoglobin 30.7 pg (27.0-31.0); Mean Corpuscular Volume 95.7 fL (78.0-102.0); Mean Platelet Volume 10.1 fl (9.2-11.8); Monocytes Absolute Auto 0.66 K/mm3 (0.10-0.90); Monocytes Percent Auto 6.3 % (2.0-11.0); Neutrophils Absolute Auto 7.8 K/mm3 (1.7-7.2); Neutrophils Percent Auto 74.3 % (50.0-70.0); Platelet Count Result 333 K/mm3 (150-420); Red Blood Count 3.91 M/mm3 (4.20-5.40); Red Cell Distribution Width 19.9 % (11.6-14.4); White Blood Count 10.5 K/mm3 (4.8-10.8)
[2020-07-06] MEDS: IPRATROPIUM 0.5 MG/ALBUTEROL SULFATE 2.5 MG AMPUL.NEB 3 ML INHALATION ×3 (06:45→20:40)
[2020-07-06] MEDS: methylPREDNISolone SOD SUCC 125 MG VIAL IV PUSH (06:45)
[2020-07-06 06:47] LABS: D Dimer 0.28 mg/L (0.19-0.50)
[2020-07-06 06:52] LABS: Alanine Aminotransferase 58 U/L (14-59); Albumin Level 2.7 g/dL (3.4-5.0); Alkaline Phosphatase 95 U/L (46-116); Anion Gap 7 mmol/L (8-16); Aspartate Amino Transferase 31 U/L (15-37); BNP 55.6 pg/mL (0-100); Bilirubin,Total 0.3 mg/dL (0.00-1.00); Blood Urea Nitrogen 20 mg/dL (7-18); Calcium 8.6 mg/dL (8.5-10.1); Carbon Dioxide 34 mmol/L (21-32); Chloride 103 mmol/L (98-108); Estimated Glomerular Filt Rate 51; Glucose 85 mg/dL (70-99); Osmolality Calculated 299 mOsm/kg (285-295); Potassium 3.1 mmol/L (3.5-5.1); Sodium 144 mmol/L (136-145); Total Protein 6.4 g/dL (6.4-8.2); Troponin I 11.9 ng/L (0.00-60.4)
[2020-07-06 06:53] LABS: Magnesium 1.4 mg/dL (1.8-2.4)
--- NOTE | 2020-07-06 07:06 | PC.NURSE ---
REPORT TO RENETTA DE SANTIAGO
[2020-07-06] MEDS: METOPROLOL TARTRATE 50 MG TAB PO (08:21)
[2020-07-06] MEDS: AMIODARONE HCL 200 MG TABLET PO (08:21)
--- NOTE | 2020-07-06 08:31 | PC.NURSE ---
Patient admitted to floor from ED, arrived per wheelchair, transferred to bed per self with stand by assist. [place] thick water at bedside. Oriented to room and call light.
--- NOTE | 2020-07-06 09:02 | PM.IMHP ---
H&P: HPI History of Present Illness Date/Time: 07/06/20 09:03 <AMELIA Peralta - Last Filed: 07/06/20 13:50> Chief Complaint: Shortness of Breath <AMELIA Peralta - Last Filed: 07/06/20 13:50> Narrative: Shruthi Denson is a 70 year old female who has dealt with COPD for a while. She states she has been SOB for a while but over the last 2 days her breathing had become increasingly worse. Pt also has recurrent Laryngeal cancer that is currently being treated with Chemo and she gets CT scans every 6 weeks. She was due for a CT scan this Monday07/10/2020. Her has cancelled this study. Pt having difficulty performing ADLs at home due to her increased oxygen demands from her COPD exacerbation. Pt PMHx includes: Depression, Dysphagia, CHF, Atrial fibrillation, HTN, Breast CA. <AMELIA Peralta - Last Filed: 07/06/20 13:50> Review of Systems Review of Systems: All systems reviewed & are unremarkable except as noted in HPI and below <AMELIA Peralta - Last Filed: 07/06/20 13:50> Constitutional: Constitutional: Denies body ache(s), Denies chills, Denies fever(s), Denies frequent falls, Denies headache(s) and Denies night sweats <AMELIA Peralta - Last Filed: 07/06/20 13:50> Cardiovascular: Cardiovascular: Denies chest pain, Denies chest pain at rest and Denies chest pain with activity <AMELIA Peralta - Last Filed: 07/06/20 13:50> Respiratory: Respiratory: Reports dyspnea and Reports dyspnea on exertion <AMELIA Peralta - Last Filed: 07/06/20 13:50> Gastrointestinal: Gastrointestinal: Reports no additional gastrointestinal complaints <AMELIA Peralta - Last Filed: 07/06/20 13:50> Musculoskeletal: Comments: feels weak from her SOB <AMELIA Peralta - Last Filed: 07/06/20 13:50> [facility] Past Medical History Medical History: Medical History Cancer of right breast (~2015) Status post mastectomy. Cancer of right lung Currently receiving chemotherapy. Chronic anemia Chronic atrial fibrillation Maintained on metoprolol on amiodarone. On long-term anticoagulation with warfarin. Failed DC cardioversion previously. Chronic back pain COPD (chronic obstructive pulmonary disease) CVA (cerebral vascular accident) Briefly affected peripheral vision, no residual deficits. Degenerative disc disease Depression Gallstones (~2014) Hyperlipidemia No longer on statin. 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 Treated with chemotherapy and radiation. She had a recurrence in May 2019 and is now receiving chemotherapy at [facility] [place]. Obstruction of bowel (~2018) Osteoporosis Port-A-Cath in place (~2015) Left chest Tobacco dependence <AMELIA Peralta - Last Filed: 07/06/20 13:50> Surgical History Surgical History: Surgical History History of bilateral knee replacement (~2013) Right in 1999. Left in 2013. History of incisional hernia repair History of lumbar fusion Fused at L3-L4 per Dr. [facility]. 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 History of tubal ligation (~1978) <AMELIA Peralta - Last Filed: 07/06/20 13:50> Family History Family History: Family History Mother Family history of malignant neoplasm Family history of heart disease in male family member before age 55 Patient's mother is Father Family history of malignant neoplasm of brain Sibling Cancer Other Family history of arthritis <AMELIA Peralta - Last Filed: 07/06/20 13:50> Social History Social History: Social History (Reviewed 07/06
[2020-07-06] MEDS: MAGNESIUM SULF 4 GM/WATER100ML 4 GM/100 ML BAG IVPB (10:19)
[2020-07-06 11:17] LABS: INR 4.6; Prothrombin Time 45.3 Seconds (9.50-12.10)
[2020-07-06] MEDS: POTASSIUM CHLORIDE 20 MEQ TABLET PO (11:26)
[2020-07-06] MEDS: POTASSIUM CHLORIDE 20 MEQ TABLET 40 MEQ PO (11:27)
[2020-07-06] MEDS: guaiFENesin/DEXTROMETHORPHAN 5 ML UDC 10 ML PO (13:59)
[2020-07-06] MEDS: methylPREDNISolone SOD SUCC 40 MG VIAL IV PUSH ×2 (14:00→21:51)
[2020-07-06] MEDS: MIRTAZAPINE 15 MG TABLET 7.5 MG PO (20:39)
[2020-07-06] MEDS: METOPROLOL TARTRATE 25 MG TABLET PO (20:39)
[2020-07-07] VITALS (9 sets, daily range): BP systolic 131–138; BP diastolic 77–83; PULSE 61–85; RESP 16–20; TEMP 36.4–36.8; O2SAT 95–100
[2020-07-07] MEDS: IPRATROPIUM 0.5 MG/ALBUTEROL SULFATE 2.5 MG AMPUL.NEB 3 ML INHALATION ×2 (04:17→08:41)
[2020-07-07 05:38] LABS: Basophils Absolute Auto 0.02 K/mm3 (0.00-0.10); Basophils Percent Auto 0.1 % (0.0-1.0); Hematocrit 34.3 % (35.0-42.0); Hemoglobin 10.9 g/dL (11.7-13.8); Immature Granulocyte Absolute 0.12 K/mm3 (0.00-0.00); Immature Granulocyte Percent A 0.8 % (0.0-0.0); Lymphocytes Percent Auto 5.9 % (18.0-42.0); Mean Corpuscular HGB Conc 31.8 g/dL (32.0-36.0); Mean Corpuscular Hemoglobin 30.4 pg (27.0-31.0); Mean Corpuscular Volume 95.8 fL (78.0-102.0); Mean Platelet Volume 10.1 fl (9.2-11.8); Monocytes Absolute Auto 0.47 K/mm3 (0.10-0.90); Monocytes Percent Auto 3.1 % (2.0-11.0); Neutrophils Absolute Auto 13.9 K/mm3 (1.7-7.2); Neutrophils Percent Auto 90.1 % (50.0-70.0); Platelet Count Result 342 K/mm3 (150-420); Red Blood Count 3.58 M/mm3 (4.20-5.40); Red Cell Distribution Width 20.1 % (11.6-14.4); White Blood Count 15.4 K/mm3 (4.8-10.8)
[2020-07-07 05:57] LABS: Alanine Aminotransferase 52 U/L (14-59); Albumin Level 2.5 g/dL (3.4-5.0); Alkaline Phosphatase 92 U/L (46-116); Anion Gap 7 mmol/L (8-16); Aspartate Amino Transferase 25 U/L (15-37); Bilirubin,Total 0.2 mg/dL (0.00-1.00); Blood Urea Nitrogen 27 mg/dL (7-18); Calcium 8.7 mg/dL (8.5-10.1); Carbon Dioxide 31 mmol/L (21-32); Chloride 106 mmol/L (98-108); Estimated CRCL calculation 40 ml/min; Estimated Glomerular Filt Rate 53; Glucose 151 mg/dL (70-99); Magnesium 2.1 mg/dL (1.8-2.4); Osmolality Calculated 306 mOsm/kg (285-295); Potassium 4.1 mmol/L (3.5-5.1); Sodium 144 mmol/L (136-145); Total Protein 6.2 g/dL (6.4-8.2)
[2020-07-07] MEDS: methylPREDNISolone SOD SUCC 40 MG VIAL IV PUSH ×3 (06:01→21:05)
--- NOTE | 2020-07-07 06:09 | PC.NURSE ---
Pt given methylprednisolone 40 mg IVP as ordered.
[2020-07-07 07:42] LABS: INR 3.9; Prothrombin Time 39.3 Seconds (9.50-12.10)
[2020-07-07] MEDS: METOPROLOL TARTRATE 50 MG TAB PO (08:49)
[2020-07-07] MEDS: AMIODARONE HCL 200 MG TABLET PO (08:49)
--- NOTE | 2020-07-07 09:34 | P.PN_ITS ---
Progress Note: A&P Assessment and Plan (1) COPD exacerbation: Code(s): J44.1 - Chronic obstructive pulmonary disease with (acute) exacerbation Status: Acute Assessment and Plan: * Continue supplementary oxygen as needed * Chest x-ray indicates Stable appearance of chronic linear atelectasis/scarring at the lingula and right infrahilar region. * DuoNeb QID, Robitussin, Solu-Medrol 40 mg TID, Flutter Valve, * Continue RT for Chest PT as needed * Continue supplementary oxygen as needed * Will complete a home O2 eval before discharge (2) Electrolyte imbalance: Code(s): E87.8 - Other disorders of electrolyte and fluid balance, not elsewhere classified Status: Acute Assessment and Plan: * Resolved * On admission K 3.1 total 60 mEq Potassium PO supplemented, Magnesium 1.4 supplemented with 4 gm IVPB, (3) Acute kidney injury: Code(s): N17.9 - Acute kidney failure, unspecified Status: Acute Assessment and Plan: On admission BUN/Creatinine 20/1.06, Est CrCl Not Reportable, Est GFR 51, * Today BUN/creatinine 27 1.02 GFR 50 * Encourage fluid intake continue * We will continue to monitor renal function * Avoid nephrotoxic agent * Renal dose medication if needed (4) Laryngeal cancer: Onset Date: ~2015 Code(s): C32.9 - Malignant neoplasm of larynx, unspecified Status: Chronic Assessment and Plan: * Pt was treated for this in the past with chemo and radiation then had a recurrence in May 2019 and is now being treated with chemo at [facility] and gets CT scans every 6 weeks and was due to have a scan this Monday07/10/2020, her cancelled the study. * Swallow study indicates regular diet with nectar thick liquids, Pt's voice is hoarse (5) Atrial fibrillation: Onset Date: ~2015 Code(s): I48.91 - Unspecified atrial fibrillation Status: Chronic Assessment and Plan: * Controlled * Continue Amiodarone and Coumadin * ,INR was 4.6 -->3.9, continue to hold warfarin * INR in a.m. * No active bleeding noted (6) Hypertension: Qualifiers: Hypertension type: unspecified Qualified Code(s): I10 - Essential (primary) hypertension Code(s): I10 - Essential (primary) hypertension Status: Chronic Assessment and Plan: * Continue metoprolol, * Continue monitor VS, * adjustments to medications as needed. * Vital signs as ordered (7) Depression: Code(s): F32.9 - Major depressive disorder, single episode, unspecified Status: Acute Assessment and Plan: * Continue home Review of Systems Review of Systems: All systems reviewed & are unremarkable except as noted in HPI and below (10 point system review) Exam Narrative: Exam Narrative: GENERAL: This is a well-nourished, well-developed patient, in no apparent distress. HEAD: normocephalic, atraumatic. EYES: PERRL. Sclera clear/white. Vision is grossly intact. EARS: External ears normal, auditory canals clear and without drainage, TMs normal without perforation. Hearing grossly intact. NOSE: External nose normal with no obvious nasal discharge, nares without redness, no rhinorrhea. THROAT: Mucous membranes moist, posterior pharynx clear. NECK: Neck supple, non-tender without lymphadenopathy, masses or thyromegaly. CARDIOVASCULAR: Regular rate without murmurs, gallops, or rubs. RESPIRATORY: Diminished breath sounds throughout GASTROINTESTINAL: Abdomen soft, non-tender, nondistended. Bowel sounds are active. No hepato-splen
--- NOTE | 2020-07-07 09:34 | WPDPN ---
Progress Note: A&P Assessment and Plan (1) COPD exacerbation: Code(s): J44.1 - Chronic obstructive pulmonary disease with (acute) exacerbation Status: Acute Assessment and Plan: Continue supplementary oxygen as needed Chest x-ray indicates Stable appearance of chronic linear atelectasis/scarring at the lingula and right infrahilar region. DuoNeb QID, Robitussin, Solu-Medrol 40 mg TID, Flutter Valve, Continue RT for Chest PT as needed Continue supplementary oxygen as needed Will complete a home O2 eval before discharge (2) Electrolyte imbalance: Code(s): E87.8 - Other disorders of electrolyte and fluid balance, not elsewhere classified Status: Acute Assessment and Plan: Resolved On admission K 3.1 total 60 mEq Potassium PO supplemented, Magnesium 1.4 supplemented with 4 gm IVPB, (3) Acute kidney injury: Code(s): N17.9 - Acute kidney failure, unspecified Status: Acute Assessment and Plan: On admission BUN/Creatinine 20/1.06, Est CrCl Not Reportable, Est GFR 51, Today BUN/creatinine 27 1.02 GFR 50 Encourage fluid intake continue We will continue to monitor renal function Avoid nephrotoxic agent Renal dose medication if needed (4) Laryngeal cancer: Onset Date: ~2015 Code(s): C32.9 - Malignant neoplasm of larynx, unspecified Status: Chronic Assessment and Plan: Pt was treated for this in the past with chemo and radiation then had a recurrence in May 2019 and is now being treated with chemo at [facility] and gets CT scans every 6 weeks and was due to have a scan this Monday07/10/2020, her cancelled the study. Swallow study indicates regular diet with nectar thick liquids, Pt's voice is hoarse (5) Atrial fibrillation: Onset Date: ~2015 Code(s): I48.91 - Unspecified atrial fibrillation Status: Chronic Assessment and Plan: Controlled Continue Amiodarone and Coumadin ,INR was 4.6 -->3.9, continue to hold warfarin INR in a.m. No active bleeding noted (6) Hypertension: Qualifiers: Hypertension type: unspecified Qualified Code(s): I10 - Essential (primary) hypertension Code(s): I10 - Essential (primary) hypertension Status: Chronic Assessment and Plan: Continue metoprolol, Continue monitor VS, adjustments to medications as needed. Vital signs as ordered (7) Depression: Code(s): F32.9 - Major depressive disorder, single episode, unspecified Status: Acute Assessment and Plan: Continue home Review of Systems Review of Systems: All systems reviewed & are unremarkable except as noted in HPI and below (10 point system review) Exam Narrative: Exam Narrative: GENERAL: This is a well-nourished, well-developed patient, in no apparent distress. HEAD: normocephalic, atraumatic. EYES: PERRL. Sclera clear/white. Vision is grossly intact. EARS: External ears normal, auditory canals clear and without drainage, TMs normal without perforation. Hearing grossly intact. NOSE: External nose normal with no obvious nasal discharge, nares without redness, no rhinorrhea. THROAT: Mucous membranes moist, posterior pharynx clear. NECK: Neck supple, non-tender without lymphadenopathy, masses or thyromegaly. CARDIOVASCULAR: Regular rate without murmurs, gallops, or rubs. RESPIRATORY: Diminished breath sounds throughout GASTROINTESTINAL: Abdomen soft, non-tender, nondistended. Bowel sounds are active. No hepato-splenomegaly, or palpable masses. No guarding. SKIN: warm, intact with no suspicious lesions or rash, good texture and turgor. NEURO: awake, alert, and oriented to person, place and time. There were no obvious focal neurologic abnormalities. Steady gait EXTREMITIES: Normal range of motion. No edema. No calf tenderness. Negative Homans sign bilaterally. BACK: Nontender without deformity or crepitance. No flank tenderness. Objective Data Vital S
[2020-07-07] MEDS: guaiFENesin 12 HR 600 MG TABCR 1200 MG PO ×2 (10:29→20:46)
[2020-07-07] MEDS: BENZONATATE 100 MG CAPSULE 200 MG PO ×3 (10:29→16:55)
--- NOTE | 2020-07-07 20:33 | PC.NURSE ---
pt reports feeling anxious, requests ativan with her bedtime meds, resting in bed, hob elevated
[2020-07-07] MEDS: LORazepam INJ (*CRX) 2 MG/ML VIAL 0.5 MG IV PUSH (20:45)
[2020-07-07] MEDS: METOPROLOL TARTRATE 25 MG TABLET PO (20:46)
[2020-07-07] MEDS: MIRTAZAPINE 15 MG TABLET 7.5 MG PO (20:47)
[2020-07-08] VITALS (11 sets, daily range): BP systolic 121–160; BP diastolic 68–75; PULSE 56–96; RESP 16–20; TEMP 36.8–37.1; O2SAT 95–99
--- NOTE | 2020-07-08 00:05 | PC.NURSE ---
Pt resting quietly in bed and very drowsy. Vital signs taken and no signs of discomfort noted.
--- NOTE | 2020-07-08 01:13 | PC.NURSE ---
Pt asleep and no signs of shortness of breath or respiratory distress noted.
--- NOTE | 2020-07-08 03:20 | PC.NURSE ---
Pt asleep and no signs of respiratory distress noted.
--- NOTE | 2020-07-08 05:09 | PC.NURSE ---
Pt asleep and no signs of shortness of breath noted. Respirations remain even and unlabored.
[2020-07-08] MEDS: IPRATROPIUM 0.5 MG/ALBUTEROL SULFATE 2.5 MG AMPUL.NEB 3 ML INHALATION (05:35)
[2020-07-08 06:04] LABS: Hematocrit 34.6 % (35.0-42.0); Hemoglobin 10.8 g/dL (11.7-13.8); Mean Corpuscular HGB Conc 31.2 g/dL (32.0-36.0); Mean Corpuscular Hemoglobin 30.5 pg (27.0-31.0); Mean Corpuscular Volume 97.7 fL (78.0-102.0); Mean Platelet Volume 9.9 fl (9.2-11.8); Platelet Count Result 326 K/mm3 (150-420); Red Blood Count 3.54 M/mm3 (4.20-5.40)
[2020-07-08] MEDS: methylPREDNISolone SOD SUCC 40 MG VIAL IV PUSH ×3 (06:05→21:23)
--- NOTE | 2020-07-08 06:05 | PC.NURSE ---
Pt given methylprednisolone 40 mg IVP as ordered. Pt doesnt voice any c/o pain or shortness of breath.
[2020-07-08 06:06] LABS: White Blood Count 20.7 K/mm3 (4.8-10.8)
--- NOTE | 2020-07-08 06:07 | PC.NURSE ---
Lab called to report critical WBC of 20.7.
[2020-07-08 06:12] LABS: INR 3.2; Prothrombin Time 32.7 Seconds (9.50-12.10)
[2020-07-08 06:23] LABS: Alanine Aminotransferase 60 U/L (14-59); Albumin Level 2.4 g/dL (3.4-5.0); Alkaline Phosphatase 91 U/L (46-116); Anion Gap 7 mmol/L (8-16); Aspartate Amino Transferase 21 U/L (15-37); Bilirubin,Total 0.2 mg/dL (0.00-1.00); Blood Urea Nitrogen 29 mg/dL (7-18); Calcium 8.9 mg/dL (8.5-10.1); Carbon Dioxide 31 mmol/L (21-32); Chloride 106 mmol/L (98-108); Estimated CRCL calculation 44 ml/min; Estimated Glomerular Filt Rate 59; Glucose 159 mg/dL (70-99); Osmolality Calculated 306 mOsm/kg (285-295); Sodium 144 mmol/L (136-145); Total Protein 5.9 g/dL (6.4-8.2)
--- NOTE | 2020-07-08 06:35 | PC.NURSE ---
Dr. Rouse notified of pt's WBC of 20.7. No new orders at this time.
[2020-07-08 08:23] LABS: CRP 1.4 mg/dL (0.0-0.9)
[2020-07-08] MEDS: guaiFENesin 12 HR 600 MG TABCR 1200 MG PO ×2 (09:20→20:48)
[2020-07-08] MEDS: METOPROLOL TARTRATE 50 MG TAB PO (09:21)
[2020-07-08] MEDS: BENZONATATE 100 MG CAPSULE 200 MG PO ×3 (09:21→16:46)
[2020-07-08] MEDS: AMIODARONE HCL 200 MG TABLET PO (09:21)
--- NOTE | 2020-07-08 12:24 | P.PN_ITS ---
Progress Note: A&P Assessment and Plan (1) COPD exacerbation: Code(s): J44.1 - Chronic obstructive pulmonary disease with (acute) exacerbation Status: Acute Assessment and Plan: * Continue supplementary oxygen as needed * Chest x-ray indicates Stable appearance of chronic linear atelectasis/scarring at the lingula and right infrahilar region. * DuoNeb QID, Robitussin, Solu-Medrol 40 mg TID, Flutter Valve, * Continue RT for Chest PT as needed * Continue supplementary oxygen as needed * Will complete a home O2 eval before discharge (2) Electrolyte imbalance: Code(s): E87.8 - Other disorders of electrolyte and fluid balance, not elsewhere classified Status: Acute Assessment and Plan: * Resolved * On admission K 3.1 total 60 mEq Potassium PO supplemented, Magnesium 1.4 supplemented with 4 gm IVPB, (3) Acute kidney injury: Code(s): N17.9 - Acute kidney failure, unspecified Status: Acute Assessment and Plan: Improved On admission BUN/Creatinine 20/1.06, GFR 51, * Today BUN/creatinine 29/0.93 GFR 59 * Encourage fluid intake continue * We will continue to monitor renal function * Avoid nephrotoxic agent * Renal dose medication if needed (4) Laryngeal cancer: Onset Date: ~2015 Code(s): C32.9 - Malignant neoplasm of larynx, unspecified Status: Chronic Assessment and Plan: * Pt was treated for this in the past with chemo and radiation then had a recurrence in May 2019 and is now being treated with chemo at [facility] and gets CT scans every 6 weeks and was due to have a scan this Monday07/10/2020, her cancelled the study. * Swallow study indicates regular diet with nectar thick liquids, Pt's voice is hoarse (5) Atrial fibrillation: Onset Date: ~2015 Code(s): I48.91 - Unspecified atrial fibrillation Status: Chronic Assessment and Plan: * Controlled * Continue Amiodarone and Coumadin * ,INR was 4.6 -->3.9--> 3.2, continue to hold warfarin, per patient primary care physician resume home dosing on discharge * INR in a.m. * No active bleeding noted (6) Hypertension: Qualifiers: Hypertension type: unspecified Qualified Code(s): I10 - Essential (primary) hypertension Code(s): I10 - Essential (primary) hypertension Status: Chronic Assessment and Plan: * Continue metoprolol, * Continue monitor VS, * adjustments to medications as needed. * Vital signs as ordered (7) Depression: Code(s): F32.9 - Major depressive disorder, single episode, unspecified Status: Acute Assessment and Plan: * Continue home Review of Systems Review of Systems: All systems reviewed & are unremarkable except as noted in HPI and below (10 point system review) Exam Narrative: Exam Narrative: GENERAL: This is a well-nourished, well-developed patient, in no apparent distress. HEAD: normocephalic, atraumatic. EYES: PERRL. Sclera clear/white. Vision is grossly intact. EARS: External ears normal, auditory canals clear and without drainage, TMs normal without perforation. Hearing grossly intact. NOSE: External nose normal with no obvious nasal discharge, nares without redness, no rhinorrhea. THROAT: Mucous membranes moist, posterior pharynx clear. NECK: Neck supple, non-tender without lymphadenopathy, masses or thyromegaly. CARDIOVASCULAR: Regular rate without murmurs, gallops, or rubs. RESPIRATORY: Clear breath sounds GASTROINTESTINAL: Abdomen soft, non-tender, nondiste
--- NOTE | 2020-07-08 12:24 | WPDPN ---
Progress Note: A&P Assessment and Plan (1) COPD exacerbation: Code(s): J44.1 - Chronic obstructive pulmonary disease with (acute) exacerbation Status: Acute Assessment and Plan: Continue supplementary oxygen as needed Chest x-ray indicates Stable appearance of chronic linear atelectasis/scarring at the lingula and right infrahilar region. DuoNeb QID, Robitussin, Solu-Medrol 40 mg TID, Flutter Valve, Continue RT for Chest PT as needed Continue supplementary oxygen as needed Will complete a home O2 eval before discharge (2) Electrolyte imbalance: Code(s): E87.8 - Other disorders of electrolyte and fluid balance, not elsewhere classified Status: Acute Assessment and Plan: Resolved On admission K 3.1 total 60 mEq Potassium PO supplemented, Magnesium 1.4 supplemented with 4 gm IVPB, (3) Acute kidney injury: Code(s): N17.9 - Acute kidney failure, unspecified Status: Acute Assessment and Plan: Improved On admission BUN/Creatinine 20/1.06, GFR 51, Today BUN/creatinine 29/0.93 GFR 59 Encourage fluid intake continue We will continue to monitor renal function Avoid nephrotoxic agent Renal dose medication if needed (4) Laryngeal cancer: Onset Date: ~2015 Code(s): C32.9 - Malignant neoplasm of larynx, unspecified Status: Chronic Assessment and Plan: Pt was treated for this in the past with chemo and radiation then had a recurrence in May 2019 and is now being treated with chemo at [facility] and gets CT scans every 6 weeks and was due to have a scan this Monday07/10/2020, her cancelled the study. Swallow study indicates regular diet with nectar thick liquids, Pt's voice is hoarse (5) Atrial fibrillation: Onset Date: ~2015 Code(s): I48.91 - Unspecified atrial fibrillation Status: Chronic Assessment and Plan: Controlled Continue Amiodarone and Coumadin ,INR was 4.6 -->3.9--> 3.2, continue to hold warfarin, per patient primary care physician resume home dosing on discharge INR in a.m. No active bleeding noted (6) Hypertension: Qualifiers: Hypertension type: unspecified Qualified Code(s): I10 - Essential (primary) hypertension Code(s): I10 - Essential (primary) hypertension Status: Chronic Assessment and Plan: Continue metoprolol, Continue monitor VS, adjustments to medications as needed. Vital signs as ordered (7) Depression: Code(s): F32.9 - Major depressive disorder, single episode, unspecified Status: Acute Assessment and Plan: Continue home Review of Systems Review of Systems: All systems reviewed & are unremarkable except as noted in HPI and below (10 point system review) Exam Narrative: Exam Narrative: GENERAL: This is a well-nourished, well-developed patient, in no apparent distress. HEAD: normocephalic, atraumatic. EYES: PERRL. Sclera clear/white. Vision is grossly intact. EARS: External ears normal, auditory canals clear and without drainage, TMs normal without perforation. Hearing grossly intact. NOSE: External nose normal with no obvious nasal discharge, nares without redness, no rhinorrhea. THROAT: Mucous membranes moist, posterior pharynx clear. NECK: Neck supple, non-tender without lymphadenopathy, masses or thyromegaly. CARDIOVASCULAR: Regular rate without murmurs, gallops, or rubs. RESPIRATORY: Clear breath sounds GASTROINTESTINAL: Abdomen soft, non-tender, nondistended. Bowel sounds are active. No hepato-splenomegaly, or palpable masses. No guarding. SKIN: warm, intact with no suspicious lesions or rash, good texture and turgor. NEURO: awake, alert, and oriented to person, place and time. There were no obvious focal neurologic abnormalities. Steady gait EXTREMITIES: Normal range of motion. No edema. No calf tenderness. Negative Homans sign bilaterally. BACK: Nontender without deformity or crepitance. No flank
[2020-07-08 12:45] LABS: Magnesium 1.7 mg/dL (1.8-2.4)
--- NOTE | 2020-07-08 13:18 | HOMEO2EVAL ---
Home Oxygen Evaluation RC: Home Oxygen (O2) Evaluation Start: 07/08/20 12:15 Freq: ONCE Status: Active Protocol: RPE Activity Type Activity Date Activity User E-Sign Co-Sign Detail Recorded Client Recorded Date Recorded By Document 07/08/20 12:55 SJIsabel [id number] 07/08/20 13:17 SJB Document 07/08/20 12:57 SJB [id number] 07/08/20 13:17 SJB 07/08/20 07/08/20 12:55 12:57 Home O2 Evaluation Test Phase Resting Exercise Oxygen Delivery Room Air Room Air Pulse Oximetry (90-100 %) 98 97 Pulse Rate (60-100 beats/min) 88 96 Activity Tolerance Good Rating of Perceived Dyspnea (PD) +2 Mild, Some Difficulty, Noticeable to the Observer Rate of Perceived Exertion (PE) 15 Hard Ambulation Distance (feet) 200 Home Oxygen Evaluation Comments Pt always has Pushed audible wheezes wheelchair on from throat. room air whole distance. Was a pretty good struggle to get back to room but after 2 rests she made it back. Sp02s always remained above 96%. Treatment Charges O2 Evaluation - Inpatient
[2020-07-08] MEDS: traZODone HCL 25 MG TABLET PO (20:49)
[2020-07-08] MEDS: METOPROLOL TARTRATE 25 MG TABLET PO (20:49)
[2020-07-08] MEDS: MIRTAZAPINE 15 MG TABLET 7.5 MG PO (20:50)
[2020-07-09] VITALS (9 sets, daily range): BP systolic 144–165; BP diastolic 70–83; PULSE 45–107; RESP 18–20; TEMP 36.2–36.8; O2SAT 94–99
--- NOTE | 2020-07-09 00:05 | PC.NURSE ---
Pt up to the bathroom per self to void. Pt returned to bed per self and didnt voice any c/o shortness of breath or discomfort.
--- NOTE | 2020-07-09 02:16 | PC.NURSE ---
Pt asleep and no signs of shortness of breath noted. respirations remain even and unlabored.
--- NOTE | 2020-07-09 04:15 | PC.NURSE ---
Pt asleep and no signs of respiratory distress noted.
[2020-07-09 05:35] LABS: Hematocrit 36.9 % (35.0-42.0); Hemoglobin 11.3 g/dL (11.7-13.8); Mean Corpuscular HGB Conc 30.6 g/dL (32.0-36.0); Mean Corpuscular Hemoglobin 29.7 pg (27.0-31.0); Mean Corpuscular Volume 97.1 fL (78.0-102.0); Mean Platelet Volume 10.5 fl (9.2-11.8); Platelet Count Result 340 K/mm3 (150-420); Red Cell Distribution Width 19.8 % (11.6-14.4); White Blood Count 18.8 K/mm3 (4.8-10.8)
[2020-07-09 05:48] LABS: Alanine Aminotransferase 56 U/L (14-59); Albumin Level 2.6 g/dL (3.4-5.0); Alkaline Phosphatase 117 U/L (46-116); Anion Gap 7 mmol/L (8-16); Aspartate Amino Transferase 27 U/L (15-37); Bilirubin,Total 0.3 mg/dL (0.00-1.00); Blood Urea Nitrogen 28 mg/dL (7-18); Calcium 8.6 mg/dL (8.5-10.1); Carbon Dioxide 32 mmol/L (21-32); Chloride 105 mmol/L (98-108); Estimated CRCL calculation 43 ml/min; Estimated Glomerular Filt Rate 59; Glucose 190 mg/dL (70-99); INR 2.1; Osmolality Calculated 308 mOsm/kg (285-295); Potassium 3.5 mmol/L (3.5-5.1); Prothrombin Time 21.5 Seconds (9.50-12.10); Sodium 144 mmol/L (136-145); Total Protein 6.2 g/dL (6.4-8.2)
[2020-07-09] MEDS: methylPREDNISolone SOD SUCC 40 MG VIAL IV PUSH ×2 (06:06→13:20)
--- NOTE | 2020-07-09 06:12 | PC.NURSE ---
Pt given methylprednisolone 40 mg IVP as ordered. Pt doesnt voice any c/o shortness of breath.
[2020-07-09] MEDS: IPRATROPIUM 0.5 MG/ALBUTEROL SULFATE 2.5 MG AMPUL.NEB 3 ML INHALATION (07:49)
[2020-07-09 08:17] LABS: Magnesium 1.5 mg/dL (1.8-2.4)
[2020-07-09] MEDS: AMIODARONE HCL 200 MG TABLET PO (08:40)
[2020-07-09] MEDS: METOPROLOL TARTRATE 50 MG TAB PO (08:41)
[2020-07-09] MEDS: guaiFENesin 12 HR 600 MG TABCR 1200 MG PO (08:41)
[2020-07-09] MEDS: BENZONATATE 100 MG CAPSULE 200 MG PO ×2 (08:41→13:20)
[2020-07-09] MEDS: LORazepam (*CRX) 0.5 MG TABLET PO (08:42)
--- NOTE | 2020-07-09 10:48 | PM.DS ---
DS: Admitting Diagnosis Admitting Diagnosis Admitting Diagnosis: COPD exacerbation DS: Discharge Diagnosis Discharge Diagnosis (1) COPD exacerbation: Code(s): J44.1 - Chronic obstructive pulmonary disease with (acute) exacerbation Status: Acute Assessment and Plan: Continue supplementary oxygen as needed, patient will taper off of oxygen at home Chest x-ray indicates Stable appearance of chronic linear atelectasis/scarring at the lingula and right infrahilar region. Continue inhalers with short dose of prednisone and antibiotics According to home to eval oxygen not require (2) Electrolyte imbalance: Code(s): E87.8 - Other disorders of electrolyte and fluid balance, not elsewhere classified Status: Acute Assessment and Plan: Resolved On admission K 3.1 total 60 mEq Potassium PO supplemented, Magnesium 1.4 supplemented with 4 gm IVPB, (3) Acute kidney injury: Code(s): N17.9 - Acute kidney failure, unspecified Status: Acute Assessment and Plan: Resolved On admission BUN/Creatinine 20/1.06, GFR 51, Today BUN/creatinine 28/0.94 GFR 59 (4) Laryngeal cancer: Onset Date: Code(s): C32.9 - Malignant neoplasm of larynx, unspecified Status: Chronic Assessment and Plan: Pt was treated for this in the past with chemo and radiation then had a recurrence in May 2019 and is now being treated with chemo at [facility] and gets CT scans every 6 weeks and was due to have a scan this Monday07/10/2020, her cancelled the study. Swallow study indicates regular diet with nectar thick liquids, Pt's voice is hoarse (5) Atrial fibrillation: Onset Date: Code(s): I48.91 - Unspecified atrial fibrillation Status: Chronic Assessment and Plan: Controlled Continue Amiodarone and Coumadin ,INR was 4.6 -->3.9--> 3.2--> 2.1, resume warfarin, per patient primary care physician resume home dosing on discharge No active bleeding noted (6) Hypertension: Qualifiers: Hypertension type: unspecified Qualified Code(s): I10 - Essential (primary) hypertension Code(s): I10 - Essential (primary) hypertension Status: Chronic Assessment and Plan: Continue metoprolol, Follow her primary care physician (7) Depression: Code(s): F32.9 - Major depressive disorder, single episode, unspecified Status: Acute Assessment and Plan: Continue home DS: Summary Hospital Course Reason for hospitalization: COPD exacerbation Hospital Course: Shruthi Denson is a 70 year old female who presented to our ED with shortness of breath and was admitted for COPD exacerbation. Patient past medical history depression, dysphagia, congestive heart failure, A. fib hypertension and breast cancer pt also has recurrent Laryngeal cancer that is currently being treated with Chemo and she gets CT scans every 6 weeks. She was due for a CT scan this Monday07/10/2020 she canceled appointment she will reschedule. . Pt was having difficulty performing ADLs at home due to her increased oxygen demands from her COPD exacerbation. Patient has had a home O2 evaluation and it was determined the patient does not require any home oxygen. I did talk to patient's primary care physician she will discharge with cefdinir, 2 day supply of prednisone totaling 6, Symbicort and she will continue her doses of warfarin. Patient will also be discharged with a small dose of Ativan for possible anxiety she will need to follow-up with her primary care physician to continue prescription. Patient also noted that she will pay for her own oxygen supplement at home. She will discharge today and will follow up with her primary care physician in her hematology oncology for a repeat CT. Time Spent with Patient Time attestation: Total time spent providing and/or coordinating discharge services: Exam Narrative: Exam Narrative: GENER
--- NOTE | 2020-07-09 12:35 | HOMEO2EVAL ---
Home Oxygen Evaluation RC: Home Oxygen (O2) Evaluation Start: 07/09/20 12:08 Freq: ONCE Status: Active Protocol: RPE Activity Type Activity Date Activity User E-Sign Co-Sign Detail Recorded Client Recorded Date Recorded By Document 07/09/20 12:20 GINA [id number] 07/09/20 12:35 SJB Document 07/09/20 12:22 SJB [id number] 07/09/20 12:35 SJB 07/09/20 07/09/20 12:20 12:22 Home O2 Evaluation Test Phase Resting Exercise Oxygen Delivery Room Air Room Air Pulse Oximetry (90-100 %) 97 97 Pulse Rate (60-100 beats/min) 107 H 93 Activity Tolerance Fair Rating of Perceived Dyspnea (PD) +3 Moderate Difficulty, But Can Continue Rate of Perceived Exertion (PE) 13 Somewhat Hard Home Oxygen Evaluation Comments Pts family Pt was walked requested a up and down 12 Sp02 walk up/ stairs, as she down stairs has at home, since she has a with no staircase at desaturation. home. Sp02 remained at 97% on room air. Treatment Charges O2 Evaluation - Inpatient
[2020-07-09] MEDS: WARFARIN (*PBKC) 1 MG, WARFARIN (*PBKC) 2 MG 3 MG PO (13:42)
--- NOTE | 2020-07-09 13:53 | PC.NURSE ---
Patient taken to personal vehicle via wheelchair. accompanied patient to vehicle and drove home. All belongings taken by patient and . Discharge instructions gone over with patient and . Patient verbalized understanding.
--- NOTE | 2020-07-14 13:55 | PC.NURSE ---
Unable to contact for discharge call back.
== END 2020-07-09 13:45 | disposition home or self-care (01) | DRG 191 ==
LOC: CHSED 07:49 → CHS2ND 07:52
PROVIDERS: Emergency Medicine; Nurse Practitioner; Nurse Practitioner Family; Admitting Provider Emergency Medicine; Emergency Provider Emergency Medicine; PCP Family Medicine; Visit Provider Emergency Medicine
DX: J44.1 Chronic obstructive pulmonary disease with (acute) exacerbation (principal); C34.91 Malignant neoplasm of unspecified part of right bronchus or lung; C32.9 Malignant neoplasm of larynx, unspecified; I48.20 Chronic atrial fibrillation, unspecified; I10 Essential (primary) hypertension; D64.9 Anemia, unspecified; E78.5 Hyperlipidemia, unspecified; M81.0 Age-related osteoporosis without current pathological fracture; M54.9 Dorsalgia, unspecified; G89.29 Other chronic pain; F17.210 Nicotine dependence, cigarettes, uncomplicated; Z96.653 Presence of artificial knee joint, bilateral; Z86.73 Personal history of transient ischemic attack (TIA), and cerebral infarction without residual deficits; Z98.1 Arthrodesis status; Z90.11 Acquired absence of right breast and nipple; Z90.81 Acquired absence of spleen; Z85.3 Personal history of malignant neoplasm of breast; N17.9 Acute kidney failure, unspecified; E87.8 Other disorders of electrolyte and fluid balance, not elsewhere classified; F32.9 Major depressive disorder, single episode, unspecified
CPT/HCPCS: 36415; 71045; 71046; 80053; 83605; 83735; 83880; 84484; 85025; 85027; 85380; 85610; 86140; 87040; 93005; 94618; 94640; 94667; 96374; 97161; 97165; 99285; A9270; J0696; J2060; J2920; J2930; J3475

== ENCOUNTER 2020-08-26 10:47 | Inpatient (IN) | payer MEDICARE, SELFPAY ==
[2020-08-26] VITALS (7 sets, daily range): BP systolic 127–128; BP diastolic 74–80; PULSE 74–98; RESP 16–20; TEMP 36.2–36.6; O2SAT 96–99
--- NOTE | ~2020-08-26 | XR_ITS ---
EXAMINATION: XR chest 1V portable DATE: 08/26/2020 12:55 INDICATION: Shortness of breath. TECHNIQUE: A single frontal view of the chest was obtained. COMPARISON: Chest 2 views 07/08/2020, CT abdomen and pelvis 08/31/2019 FINDINGS: There is mild atelectasis in the lower lung zones. No pleural effusion or pneumothorax. The heart size is normal. There is a tracheostomy tube in expected position. There is a left subclavian port with tip in superior vena cava. IMPRESSION: 1. Mild atelectasis in the lower lung zones. Reviewed, dictated and finalized at location A.
--- NOTE | 2020-08-26 11:33 | ED.WEAKNESS ---
HPI - Weakness General Chief complaint: Urogenital-Female Stated complaint: brought over by doctor Time Seen by Provider: 08/26/20 11:05 Source: patient Mode of arrival: ambulatory Limitations: no limitations History of Present Illness HPI Narrative: Patient is brought in due to her having E Coli in the urine which is resistant to multiple organisms, and it is felt she must be given IV Gentamicin in order to clear this urinary infection. She is therefore brought in, as it appears she will require IV antibiotics. She has had dysuria, and complaints of chills, which has gone on for the past few days. But her discomfort has been mild with urination. She has had mild to moderate discomfort in the right flank. She denies any fever. Mrs. Denson has had complaints of increasing shortness of breath. She has a history of COPD. She was put on prednisone [address] Solorzano. We will leave her on this for a couple of more days. Then we will attempt to wean her. MD Complaint: generalized weakness Onset (ago): day(s) Duration: intermittent Related Data Home Medications Medication Instructions Recorded Confirmed metoprolol tartrate 50 mg PO DAILY 12/17/19 08/26/20 amiodarone 200 mg PO DAILY 05/28/20 08/26/20 warfarin 3 mg PO DIRECTED 05/28/20 08/26/20 ipratropium bromide 0.02 % 2.5 ml INHALATION QID PRN 06/01/20 08/26/20 solution for inhalation metoprolol tartrate 25 mg PO HS 07/06/20 08/26/20 warfarin 4 mg PO DIRECTED 07/06/20 08/26/20 prednisone 20 mg tablet 60 mg PO DAILY tablet 08/26/20 08/26/20 Allergies Allergy/AdvReac Type Severity Reaction Status Date / Time ioversol Allergy Severe Anaphylactic Verified 08/26/20 09:44 Shock codeine Allergy Intermediate Nausea and Verified 08/26/20 09:44 Vomiting iohexol Allergy Mild Unknown Verified 08/26/20 09:44 [From CONTRAST - CT, XRAY] Review of Systems Constitutional: Constitutional: Reports no additional constitutional complaints Eyes: Eyes: Reports no additional eye complaints ENT: Comments: States she has had some swelling in her neck off and on at times. Cardiovascular: Cardiovascular: Reports no additional cardiovascular complaints Respiratory: Comments: Has recently felt she was having a bit of a flare of COPD with mild increased dyspnea Gastrointestinal: Gastrointestinal: Reports no additional gastrointestinal complaints Genitourinary: Genitourinary: Reports no additional female genitourinary complaints Musculoskeletal: Musculoskeletal: Reports no additional musculoskeletal complaints Integumentary/Breasts: Skin/Breast: Reports system reviewed and no additional complaints, except as docu Neurologic: Reports system reviewed and no additional complaints, except as documented Psychiatric: Psychiatric: Reports no additional psychiatric complaints Hematologic/Lymphatic: Hematologic/Lymphatic: Reports no additional hematologic/lymphatic complaints [facility] Past Medical History Medical History (Updated 08/26/20 @ 13:56 by Deshaun Rouse MD) Cancer of right breast (~2015) Status post mastectomy. Cancer of right lung Currently receiving chemotherapy. Chronic anemia Chronic atrial fibrillation Maintained on metoprolol on amiodarone. On long-term anticoagulation with warfarin. Failed DC cardioversion previously. Chronic back pain COPD (chronic obstructive pulmonary disease) CVA (cerebral vascular accident) Briefly affected peripheral vision, no residual deficits. Degenerative disc disease Depression Gallstones (~2014) Hyperlipidemia No longer on statin. 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 Treated with chemotherapy and radiation. She had a recurrence in May 2019 and is now receiving chemotherapy at [facility]. Obstruction of bowel (~2018) Osteoporosis Port-A-Cath in place (~2015) Left chest Surgical History Surgical History (Reviewed 08/26/20 @ 13:44
[2020-08-26 11:38] LABS: Basophils Absolute Auto 0.03 K/mm3 (0.00-0.10); Basophils Percent Auto 0.2 % (0.0-1.0); Eosinophils Absolute Auto 0.01 K/mm3 (0.02-0.50); Eosinophils Percent Auto 0.1 % (1.0-6.0); Hematocrit 29.5 % (35.0-42.0); Hemoglobin 9.5 g/dL (11.7-13.8); Immature Granulocyte Absolute 0.06 K/mm3 (0.00-0.00); Immature Granulocyte Percent A 0.5 % (0.0-0.0); Lymphocytes Absolute Auto 0.76 K/mm3 (1.10-4.50); Lymphocytes Percent Auto 6.2 % (18.0-42.0); Mean Corpuscular HGB Conc 32.2 g/dL (32.0-36.0); Mean Corpuscular Hemoglobin 29.2 pg (27.0-31.0); Mean Corpuscular Volume 90.8 fL (78.0-102.0); Mean Platelet Volume 9.5 fl (9.2-11.8); Monocytes Absolute Auto 0.34 K/mm3 (0.10-0.90); Monocytes Percent Auto 2.8 % (2.0-11.0); Neutrophils Absolute Auto 11.1 K/mm3 (1.7-7.2); Neutrophils Percent Auto 90.2 % (50.0-70.0); Platelet Count Result 498 K/mm3 (150-420); Red Blood Count 3.25 M/mm3 (4.20-5.40); Red Cell Distribution Width 18.4 % (11.6-14.4); White Blood Count 12.3 K/mm3 (4.8-10.8)
[2020-08-26 11:47] LABS: Add Urine Microscopic? NO; Appearance Urine Clear (Clear); Bilirubin Urine Negative (Negative); Blood Urine Negative (Negative); Color Urine Yellow (Yellow); Glucose Urine UA Negative (Negative); Ketones Urine Negative (Negative); Leukocyte Esterase Ur Negative (Negative); Nitrate Urine Negative (Negative); Protein Urine Negative (Negative); Specific Grav Ur >= 1.030 (1.010-1.020); Urobilinogen Urine 0.2 mg/dL (0.2-1.0); pH Urine 5.5 (5.0-8.0)
[2020-08-26 11:51] LABS: Prothrombin Time 30.8 Seconds (9.50-12.10)
[2020-08-26 11:51] LABS: Alanine Aminotransferase 18 U/L (14-59); Albumin Level 2.6 g/dL (3.4-5.0); Alkaline Phosphatase 99 U/L (46-116); Anion Gap 11 mmol/L (8-16); Aspartate Amino Transferase 19 U/L (15-37); Bilirubin,Total 0.2 mg/dL (0.00-1.00); Blood Urea Nitrogen 17 mg/dL (7-18); Calcium 8.8 mg/dL (8.5-10.1); Carbon Dioxide 27 mmol/L (21-32); Chloride 103 mmol/L (98-108); Estimated Glomerular Filt Rate 57; Glucose 126 mg/dL (70-99); Osmolality Calculated 295 mOsm/kg (285-295); Potassium 3.7 mmol/L (3.5-5.1); Sodium 141 mmol/L (136-145); Total Protein 6.5 g/dL (6.4-8.2)
--- NOTE | 2020-08-26 12:07 | PHAR ---
08/26/20: WEIGHT TODAY AT 'S OFFICE 155 LBS PER DEBBY.
[2020-08-26] MEDS: AMPICILLIN SULB 1.5 GM/NS 50ML 1.5 GM/50 ML VIAL IVPB ×2 (12:48→18:01)
--- NOTE | 2020-08-26 13:27 | PHAR ---
08/26/20: PT. TAKES 3MG SUN,MON,WED,FRI AND 4MG TUE, STEPHEN, & SAT PER DR. MANUEL.
--- NOTE | 2020-08-26 14:46 | ADMGEN ---
This patient, Shruthi Denson, was admitted to 2nd Floor Room 204-1. Patient/family oriented to hospital policies and general routines including ID bracelet, bed and alarms, visiting hours, pain management, procedures, bathroom and other care routines, personal items, smoking policy, room service/diet, and visiting hours. Information on how to activate the Rapid Response Team has been discussed. Patient/Family are encouraged to report perceived risks to care and to ask questions if they do not understand what they are told or what they should do.
[2020-08-26] MEDS: IPRATROPIUM 0.5 MG/ALBUTEROL SULFATE 2.5 MG AMPUL.NEB 3 ML INHALATION ×2 (14:52→20:22)
--- NOTE | 2020-08-26 14:54 | PM.IMHP ---
H&P: HPI History of Present Illness Date/Time: 08/26/20 14:54 Pt is here from her PCP office after having gone to an [facility] for UTI symptoms. She was given Cipro for her UTI. Culture and sensitivity report from that Facility, likely reported after Pt was given Cipro, did not indicate if Cipro showed susceptibility. Pt still has some burning with urination which she has never had before with a UTI. Pt was admitted for Acute Pyelonephritis for IV Ab. Pt denies any CP, abdominal issues, musculoskeletal issues. She does admit to SOB for which she was recently given PO steroids. Pt has been getting chemotherapy for throat CA. She has a tracheostomy with tube in place. Pt stated she did have some chills during her UTI as well. <AMELIA Peralta - Last Filed: 08/26/20 15:40> Chief Complaint: UTI <AMELIA Peralta - Last Filed: 08/26/20 15:40> Review of Systems Constitutional: Constitutional: Reports no additional constitutional complaints, Reports chills and Denies fever(s) <AMELIA Peralta - Last Filed: 08/26/20 15:40> Eyes: Eyes: Reports no additional eye complaints <AMELIA Peralta - Last Filed: 08/26/20 15:40> ENT: Reports system reviewed and no additional complaints, except as documented, Reports Normal hearing present, Denies vertigo and Denies dizziness <AMELIA Peralta - Last Filed: 08/26/20 15:40> Cardiovascular: Cardiovascular: Reports no additional cardiovascular complaints, Denies chest pain and Denies chest pain at rest <AMELIA Peralta - Last Filed: 08/26/20 15:40> Respiratory: Respiratory: Reports no additional respiratory complaints <AMELIA Peralta - Last Filed: 08/26/20 15:40> Gastrointestinal: Gastrointestinal: Reports no additional gastrointestinal complaints <AMELIA Peralta - Last Filed: 08/26/20 15:40> Genitourinary: Genitourinary: Reports dysuria <AMELIA Peralta - Last Filed: 08/26/20 15:40> Comments: back pain <AMELIA Peralta - Last Filed: 08/26/20 15:40> Musculoskeletal: Musculoskeletal: Reports no additional musculoskeletal complaints <AMELIA Peralta - Last Filed: 08/26/20 15:40> Neurologic: Reports system reviewed and no additional complaints, except as documented <AMELIA Peralta - Last Filed: 08/26/20 15:40> Psychiatric: Psychiatric: Reports no additional psychiatric complaints <AMELIA Peralta - Last Filed: 08/26/20 15:40> [facility] Past Medical History Medical History: Medical History Cancer of right breast (~2015) Status post mastectomy. Cancer of right lung Currently receiving chemotherapy. Chronic anemia Chronic atrial fibrillation Maintained on metoprolol on amiodarone. On long-term anticoagulation with warfarin. Failed DC cardioversion previously. Chronic back pain COPD (chronic obstructive pulmonary disease) CVA (cerebral vascular accident) Briefly affected peripheral vision, no residual deficits. Degenerative disc disease Depression Gallstones (~2014) Hyperlipidemia No longer on statin. 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 Treated with chemotherapy and radiation. She had a recurrence in May 2019 and is now receiving chemotherapy at [facility]. Obstruction of bowel (~2018) Osteoporosis Port-A-Cath in place (~2015) Left chest <AMELIA Peralta - Last Filed: 08/26/20 15:40> Surgical History Surgical History: Surgical History History of bilateral knee replacement (~2013) Right in 1999. Left in 2013. History of incisional hernia repair History of lumbar fusion Fused at L3-L4 per Dr. Jacinto [facility]. 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 Hist
[2020-08-26] MEDS: WARFARIN (*PBKC) 1 MG TABLET 3 MG PO (17:37)
[2020-08-26] MEDS: PHENAZOPYRIDINE HCL 100 MG TABLET 200 MG PO (17:38)
[2020-08-26] MEDS: MIRTAZAPINE 7.5 MG TABLET PO (20:16)
[2020-08-26] MEDS: guaiFENesin 12 HR 600 MG TABCR 1200 MG PO (20:17)
[2020-08-26] MEDS: METOPROLOL TARTRATE 25 MG TABLET PO (20:17)
[2020-08-27] VITALS (13 sets, daily range): BP systolic 104–136; BP diastolic 74–79; PULSE 70–85; RESP 16–20; TEMP 36.3–36.9; O2SAT 93–98
[2020-08-27] MEDS: AMPICILLIN SULB 1.5 GM/NS 50ML 1.5 GM/50 ML VIAL IVPB ×5 (00:06→23:41)
[2020-08-27 01:08] LABS: Hematocrit 28.1 % (35.0-42.0); Hemoglobin 8.7 g/dL (11.7-13.8); Mean Corpuscular Hemoglobin 27.8 pg (27.0-31.0); Mean Corpuscular Volume 89.8 fL (78.0-102.0); Mean Platelet Volume 9.6 fl (9.2-11.8); Platelet Count Result 478 K/mm3 (150-420); Red Blood Count 3.13 M/mm3 (4.20-5.40); Red Cell Distribution Width 18.3 % (11.6-14.4)
[2020-08-27 01:23] LABS: Anion Gap 10 mmol/L (8-16); Blood Urea Nitrogen 16 mg/dL (7-18); Calcium 8.8 mg/dL (8.5-10.1); Carbon Dioxide 27 mmol/L (21-32); Chloride 103 mmol/L (98-108); Estimated CRCL calculation 43 ml/min; Estimated Glomerular Filt Rate 57; Glucose 105 mg/dL (70-99); INR 3.1; Osmolality Calculated 291 mOsm/kg (285-295); Potassium 3.7 mmol/L (3.5-5.1); Prothrombin Time 31.4 Seconds (9.50-12.10); Sodium 140 mmol/L (136-145)
[2020-08-27] MEDS: IPRATROPIUM 0.5 MG/ALBUTEROL SULFATE 2.5 MG AMPUL.NEB 3 ML INHALATION ×3 (05:51→20:11)
--- NOTE | 2020-08-27 07:27 | PM.IMPN ---
Progress Note: A&P Assessment and Plan (1) Acute pyelonephritis: Code(s): N10 - Acute pyelonephritis Status: Acute Assessment and Plan: 08/26/2020 Gentamicin and Unasyn, new UA showing no current infection, will also start Phenazopyridine for dysuria and informed Pt about possible change in urine color 08/27/2020 Gentamicin level pending 0728 hours, continue with above regimen, no UTI symptoms today, Gentamicin random is a little low at 2.9 Pharmacy following (2) COPD (chronic obstructive pulmonary disease): Code(s): J44.9 - Chronic obstructive pulmonary disease, unspecified Status: Acute Assessment and Plan: 08/26/2020 Stable at this time, continue with Albuterol PRN, Prednisone, DuoNeb, Tessalon pearls, Guaifenesin, Symbicort 08/27/2020 Has a little late expiratory wheezing, continue with above regimen at this time, stable condition (3) Anxiety: Code(s): F41.9 - Anxiety disorder, unspecified Status: Acute Assessment and Plan: 08/26/2020 Continue with Clonazepam 08/27/2020 ... (4) Atrial fibrillation: Onset Date: ~2015 Code(s): I48.91 - Unspecified atrial fibrillation Status: Chronic Assessment and Plan: 08/26/2020 continue Coumadin with daily INR checks, amiodarone, metoprolol, controlled 08/27/2020 INR this AM 3.1, continue as above Additional Plan Mrs Denson had a urinalysis from an outside facility that showed Enterobacter sensitive to Zosyn, and E Coli which was sensitive to gentamicin. The E Coli was resistant to everything else. The outside urine showed protein in her urine. She was put on ciprofloxacin pending the culture result. We are admitting to treat what appears to be a very resistant organism in her urinary tract, which probably should be interpreted as pyelonephritis given the protein in her urine and flank pain she has had on the right side. Her primary care physician has requested she be started on gentamicin and Unasyn pending a repeat urine culture. This is perfectly reasonable given her history and we will treat her in this manner. A repeat urine and culture is pending. Subjective Date/time seen: 08/27/20 07:27 Pt sitting bedside enjoying her breakfast. She states she is feeling fine this morning. She has no more urinary symptoms of burning and back pain after taking the Azo. She denies any SOB, increased WOB, CP, abdominal pain or issues, no musculoskeletal issues, no neurologic changes as well. RT gave Pt a spacer for her MDI and Pt states this works well with her tracheostomy tube. Review of Systems Constitutional: Constitutional: Reports no additional constitutional complaints, Denies body ache(s), Denies chills, Denies fever(s), Denies headache(s) and Denies weakness Eyes: Eyes: Reports no additional eye complaints, Denies change in vision, Denies diplopia, Denies eye discharge and Denies irritation ENT: Reports system reviewed and no additional complaints, except as documented, Reports Normal hearing present, Denies vertigo, Denies dizziness and Denies headache(s) Cardiovascular: Cardiovascular: Reports no additional cardiovascular complaints, Denies chest pain and Denies chest pain at rest Respiratory: Respiratory: Reports no additional respiratory complaints, Denies cough, Denies dyspnea and Denies dyspnea on exertion Gastrointestinal: Gastrointestinal: Reports no additional gastrointestinal complaints Genitourinary: Genitourinary: Reports no additional female genitourinary complaints, Denies dysuria and Denies flank pain Musculoskeletal: Musculoskeletal: Reports no additional musculoskeletal complaints Neurologic: Reports system reviewed and no additional complaints, except as documented Psychiatric: Psychiatric: Reports no additional psychiatric complaints Exam Const: General: cooperative, comfortable, no acute distress, alert and awake HENMT: Head: normal to inspection, normocephalic and atraumatic Ears: hearing g
[2020-08-27 08:55] LABS: Gentamicin Random 2.9 ug/mL (5.0-12.0)
[2020-08-27] MEDS: PHENAZOPYRIDINE HCL 100 MG TABLET 200 MG PO ×3 (08:59→17:28)
[2020-08-27] MEDS: AMIODARONE HCL 200 MG TABLET PO (08:59)
[2020-08-27] MEDS: METOPROLOL TARTRATE 50 MG TAB PO (09:00)
[2020-08-27] MEDS: guaiFENesin 12 HR 600 MG TABCR 1200 MG PO ×2 (09:00→21:01)
[2020-08-27] MEDS: BUDESONIDE/FORMOTEROL (*SP) 160-4.5 MCG 6 GM INH 2 PUFF INHALATION ×2 (09:00→21:03)
[2020-08-27] MEDS: predniSONE 20 MG TABLET 60 MG PO (09:06)
[2020-08-27] MEDS: WARFARIN (*PBKC) 2 MG TABLET 4 MG PO (17:28)
[2020-08-27] MEDS: METOPROLOL TARTRATE 25 MG TABLET PO (21:02)
[2020-08-27] MEDS: MIRTAZAPINE 7.5 MG TABLET PO (21:05)
[2020-08-28] VITALS: BP 114/74; PULSE 79; RESP 14; TEMP 37; O2SAT 100
[2020-08-28] MEDS: AMPICILLIN SULB 1.5 GM/NS 50ML 1.5 GM/50 ML VIAL IVPB ×2 (05:27→11:24)
[2020-08-28 05:49] LABS: Hematocrit 29.3 % (35.0-42.0); Hemoglobin 9.1 g/dL (11.7-13.8); Immature Platelet Fraction Pct 1.8 % (1.0-7.0); Mean Corpuscular HGB Conc 31.1 g/dL (32.0-36.0); Mean Corpuscular Hemoglobin 28.3 pg (27.0-31.0); Mean Platelet Volume 9.7 fl (9.2-11.8); Platelet Count Result 508 K/mm3 (150-420); Red Blood Count 3.22 M/mm3 (4.20-5.40); Red Cell Distribution Width 18.1 % (11.6-14.4); White Blood Count 11.5 K/mm3 (4.8-10.8)
[2020-08-28 05:54] LABS: Anion Gap 5 mmol/L (8-16); Blood Urea Nitrogen 17 mg/dL (7-18); Calcium 8.8 mg/dL (8.5-10.1); Carbon Dioxide 31 mmol/L (21-32); Chloride 104 mmol/L (98-108); Estimated CRCL calculation 42 ml/min; Estimated Glomerular Filt Rate 55; Glucose 96 mg/dL (70-99); Osmolality Calculated 291 mOsm/kg (285-295); Potassium 3.7 mmol/L (3.5-5.1); Sodium 140 mmol/L (136-145)
[2020-08-28 05:59] LABS: INR 3.5; Prothrombin Time 34.8 Seconds (9.50-12.10)
[2020-08-28] MEDS: IPRATROPIUM 0.5 MG/ALBUTEROL SULFATE 2.5 MG AMPUL.NEB 3 ML INHALATION (06:04)
[2020-08-28 06:07] VITALS: PULSE 68; RESP 16; O2SAT 94
[2020-08-28 06:23] VITALS: PULSE 76; RESP 16; O2SAT 94
[2020-08-28 07:41] VITALS: BP 117/65; PULSE 81; RESP 18; TEMP 36.2; O2SAT 94
[2020-08-28] MEDS: BUDESONIDE/FORMOTEROL (*SP) 160-4.5 MCG 6 GM INH 2 PUFF INHALATION (09:18)
[2020-08-28] MEDS: PHENAZOPYRIDINE HCL 100 MG TABLET 200 MG PO ×2 (09:19→11:24)
[2020-08-28 09:20] VITALS: PULSE 70
[2020-08-28] MEDS: guaiFENesin 12 HR 600 MG TABCR 1200 MG PO (09:20)
[2020-08-28] MEDS: AMIODARONE HCL 200 MG TABLET PO (09:20)
[2020-08-28] MEDS: predniSONE 20 MG TABLET 60 MG PO (09:20)
[2020-08-28 09:21] VITALS: PULSE 70
[2020-08-28] MEDS: METOPROLOL TARTRATE 50 MG TAB PO (09:21)
--- NOTE | 2020-08-28 11:03 | PM.DS ---
DS: Admitting Diagnosis Admitting Diagnosis Admitting Diagnosis: Pyelonephritis DS: Discharge Diagnosis Discharge Diagnosis (1) Acute pyelonephritis: Code(s): N10 - Acute pyelonephritis Status: Acute Assessment and Plan: 08/26/2020 Gentamicin and Unasyn, new UA showing no current infection, will also start Phenazopyridine for dysuria and informed Pt about possible change in urine color 08/27/2020 Gentamicin level pending 0728 hours, continue with above regimen, no UTI symptoms today, Gentamicin random is a little low at 2.9 Pharmacy following 08/28/2020 Urine Cx shows No Growth, Pt has had 3 days of Ab, will send home and f/u with PCP. (2) COPD (chronic obstructive pulmonary disease): Code(s): J44.9 - Chronic obstructive pulmonary disease, unspecified Status: Acute Assessment and Plan: 08/26/2020 Stable at this time, continue with Albuterol PRN, Prednisone, DuoNeb, Tessalon pearls, Guaifenesin, Symbicort 08/27/2020 Has a little late expiratory wheezing, continue with above regimen at this time, stable condition 08/28/2020 Stable condition (3) Anxiety: Code(s): F41.9 - Anxiety disorder, unspecified Status: Acute Assessment and Plan: 08/26/2020 Continue with Clonazepam 08/27/2020 ... (4) Atrial fibrillation: Onset Date: ~2015 Code(s): I48.91 - Unspecified atrial fibrillation Status: Chronic Assessment and Plan: 08/26/2020 continue Coumadin with daily INR checks, amiodarone, metoprolol, controlled 08/27/2020 INR this AM 3.1, continue as above 08/28/2020 INR 3.5, Pt will need to f/u with PCP, order outpatient INR prior to f/u with PCP. DS: Summary Hospital Course Hospital Course: Pt symptoms improved, Urine Cx resulted no growth Time Spent with Patient Time attestation: Total time spent providing and/or coordinating discharge services: < 30 minutes Exam Const: General: cooperative, comfortable, no acute distress, alert and awake Nutritional Appearance: average body habitus HENMT: Head: normal to inspection, normocephalic and atraumatic Ears: hearing grossly normal bilaterally Eyes: General: appearance normal, both eyes and all related structures Alignment and Position: alignment normal Eyelids: eyelids normal Neck: Neck: normal visual inspection, full ROM and no JVD Resp: Effort & Inspection: normal respiratory effort Auscultation: clear to auscultation bilaterally Other: Tracheostomy tube in place and patent Cardio: Jugular venous distension: no JVD Rate: regular rate Rhythm: regular rhythm Heart sounds: S1 normal heart sound present and S2 normal heart sound present GI: GI Palp: Yes Soft to palpation and Yes Tenderness to palpation present (GI) (slight LLQ tenderness) Skin: General skin exam: normal color Lesions: no lesions Rashes: no rashes Neuro: General: oriented to person, oriented to place and oriented to time Cranial nerves: Yes CN's II-XII intact bilaterally (grossly intactt) Cognition (Neuro): normal cognition Speech: normal speech Extrem: General: no pedal edema Psych: Appearance: grossly normal Mental Status: mental status grossly normal Affect: normal affect Attitude: cooperative Thought process: Normal thought process present Thought content: Yes Normal thought content present DS: Data Data Completed and Pending Labs on day of discharge: Labs from last 24 hours 08/28/20 08/28/20 08/28/20 05:00 05:00 05:00 WBC 11.5 H RBC 3.22 L Hgb 9.1 L Hct 29.3 L MCV 91.0 MCH 28.3 MCHC 31.1 L RDW 18.1 H Plt Count 508 H MPV 9.7 % Immature Plt Fraction 1.8 PT 34.8 H INR 3.5 Sodium 140 Potassium 3.7 Chloride 104 Carbon Dioxide 31 Anion Gap 5 L BUN 17 Creatinine 1.00 Estim Creat Clear Calc 42 Estimated GFR 55 L Glucose 96 Calculated Osmolality 291 Calcium 8.8 Discharge Plan Discharge Attending physician on discharge: Deshaun Higuera
--- NOTE | 2020-08-28 13:00 | PC.NURSE ---
Patient discharged to home @ 1300, left floor via wheelchair accompanied by to private vehicle. Discharge instructions discussed with pt and spouse including PCP follow up and home health f/u. All belongings gathered and sent with patient. Home medications discussed. Port site de-accessed and dressing applied.
--- NOTE | 2020-08-31 10:46 | PC.NURSE ---
Pt states she received and understood her discharge instructions. Pt has no other comments.
== END 2020-08-28 13:00 | disposition home health service (06) | DRG 690 ==
LOC: CHSED 12:26 → CHS2ND 12:36
PROVIDERS: Nurse Practitioner Family; Admitting Provider Emergency Medicine; Emergency Provider Emergency Medicine; PCP Family Medicine; Visit Provider Emergency Medicine
DX: N10 Acute pyelonephritis (principal); B96.20 Unspecified Escherichia coli [E. coli] as the cause of diseases classified elsewhere; C34.91 Malignant neoplasm of unspecified part of right bronchus or lung; C32.9 Malignant neoplasm of larynx, unspecified; I10 Essential (primary) hypertension; I48.20 Chronic atrial fibrillation, unspecified; J44.9 Chronic obstructive pulmonary disease, unspecified; E78.5 Hyperlipidemia, unspecified; D64.9 Anemia, unspecified; M81.0 Age-related osteoporosis without current pathological fracture; M54.9 Dorsalgia, unspecified; G89.29 Other chronic pain; Z96.653 Presence of artificial knee joint, bilateral; F32.9 Major depressive disorder, single episode, unspecified; Z79.01 Long term (current) use of anticoagulants; Z86.73 Personal history of transient ischemic attack (TIA), and cerebral infarction without residual deficits; Z85.3 Personal history of malignant neoplasm of breast; Z98.1 Arthrodesis status; Z98.41 Cataract extraction status, right eye; Z96.1 Presence of intraocular lens; Z90.11 Acquired absence of right breast and nipple; Z90.81 Acquired absence of spleen; Z87.891 Personal history of nicotine dependence; F41.9 Anxiety disorder, unspecified; Z93.0 Tracheostomy status
CPT/HCPCS: 36415; 71045; 80048; 80053; 80170; 81003; 85025; 85027; 85055; 85610; 87086; 94640; 99285; A9270; J0295; J1580; J7512

== ENCOUNTER 2020-10-08 16:59 | Emergency (ER) | payer MEDICARE, SELFPAY ==
--- NOTE | ~2020-10-08 | XR_ITS ---
XR chest 1V portable 10/08/2020 17:24 Indication: Chest pain Procedure: AP portable chest Comparison: Comparison to multiple prior studies sequentially, with oldest reviewed study dated 11/2020. Findings: There is a port catheter, tip in the SVC. There are linear infiltrates of the right mid and left lower lung zones which may represent atelectasis or less likely pneumonia. Cardiomegaly. No sig nificant effusion or pneumothorax. No acute osseous abnormality. Mild prominence of the shayla may refl ect pulmonary vascular congestion, although lymphadenopathy is not excluded. Impression: 1: Stable linear infiltrates of the right mid and left lower lung zones, likely atelectasis. Pneumoni a less favored. 2: Mild prominence of the shayla may reflect pulmonary vascular congestion, although lymphadenopathy i s not excluded. Reviewed, dictated and finalized at location A. Impression: 1: Stable linear infiltrates of the right mid and left lower lung zones, likely atelectasis. Pneumonia less favored. 2: Mild prominence of the shayla may reflect pulmonary vascular congestion, alth ough lymphadenopathy is not excluded.
--- NOTE | 2020-10-08 17:08 | ECG_ITS ---
Measurements Intervals [place] Rate: 81 P: 29 PA: 170 QRS: -42 QRSD: 103 T: 55 QT: 404 QTc: 469 Interpretive Statements SINUS RHYTHM LEFT AXIS DEVIATION EARLY PRECORDIAL R/S TRANSITION BASELINE ARTIFACT- I, II, III, AVR, AVF, V1 BORDERLINE ECG Electronically Signed On 10-08-2020 17:43:25 CDT by Thaddeus Stern D.O.
[2020-10-08 17:10] VITALS: BP 122/78; PULSE 92; RESP 24; TEMP 36.9; O2SAT 93
[2020-10-08] MEDS: IPRATROPIUM 0.5 MG/ALBUTEROL SULFATE 2.5 MG AMPUL.NEB 3 ML INHALATION (17:23)
[2020-10-08 17:24] VITALS: PULSE 83; RESP 22; O2SAT 94
[2020-10-08 17:36] LABS: Basophils Absolute Auto 0.05 K/mm3 (0.00-0.10); Basophils Percent Auto 0.6 % (0.0-1.0); Eosinophils Absolute Auto 0.13 K/mm3 (0.02-0.50); Eosinophils Percent Auto 1.5 % (1.0-6.0); Hematocrit 31.3 % (35.0-42.0); Hemoglobin 9.6 g/dL (11.7-13.8); Immature Granulocyte Absolute 0.03 K/mm3 (0.00-0.00); Immature Granulocyte Percent A 0.3 % (0.0-0.0); Lymphocytes Absolute Auto 2.23 K/mm3 (1.10-4.50); Lymphocytes Percent Auto 25.8 % (18.0-42.0); Mean Corpuscular HGB Conc 30.7 g/dL (32.0-36.0); Mean Corpuscular Hemoglobin 26.2 pg (27.0-31.0); Mean Corpuscular Volume 85.3 fL (78.0-102.0); Mean Platelet Volume 9.1 fl (9.2-11.8); Monocytes Absolute Auto 0.68 K/mm3 (0.10-0.90); Monocytes Percent Auto 7.9 % (2.0-11.0); Neutrophils Absolute Auto 5.5 K/mm3 (1.7-7.2); Neutrophils Percent Auto 63.9 % (50.0-70.0); Platelet Count Result 495 K/mm3 (150-420); Red Blood Count 3.67 M/mm3 (4.20-5.40); Red Cell Distribution Width 17.2 % (11.6-14.4); White Blood Count 8.7 K/mm3 (4.8-10.8)
[2020-10-08 17:37] VITALS: PULSE 93; RESP 24; O2SAT 94
[2020-10-08] MEDS: methylPREDNISolone SOD SUCC 125 MG VIAL IM (17:42)
[2020-10-08 17:53] LABS: Alanine Aminotransferase 18 U/L (14-59); Albumin Level 2.9 g/dL (3.4-5.0); Alkaline Phosphatase 110 U/L (46-116); Anion Gap 8 mmol/L (8-16); Aspartate Amino Transferase 16 U/L (15-37); Bilirubin,Total 0.5 mg/dL (0.00-1.00); Blood Urea Nitrogen 14 mg/dL (7-18); Calcium 9.2 mg/dL (8.5-10.1); Carbon Dioxide 28 mmol/L (21-32); Chloride 103 mmol/L (98-108); Estimated CRCL calculation 38 ml/min; Estimated Glomerular Filt Rate 48; Glucose 94 mg/dL (70-99); Osmolality Calculated 288 mOsm/kg (285-295); Potassium 3.5 mmol/L (3.5-5.1); Sodium 139 mmol/L (136-145)
[2020-10-08 17:59] LABS: Magnesium 1.4 mg/dL (1.8-2.4); NT Pro B Type Natriuretic Pept 359 pg/mL (0-125)
--- NOTE | 2020-10-08 18:07 | ED.SOB ---
HPI - SOB/Dyspnea General Chief Complaint: Shortness of Breath/Dyspnea Stated Complaint: trouble breathing Time Seen by Provider: 10/08/20 17:02 Source: patient and family Mode of arrival: wheelchair Limitations: no limitations History of Present Illness HPI Narrative: this is a 70-year-old female with a history of laryngeal cancer status post chemo and currently received her last chemo treatment has a trach collar history of COPD has been short of breath with some wheezing for the last couple of days getting a little worse this afternoon art O2 sats at home 8% according to , currently her saturations are 92% on room air this is prior to receiving any breathing treatment or medication. There is some scattered wheezing audible with some scant amount of coughing with some mild production with no fever chills nausea vomiting no chest tightness. MD elicited complaint: shortness of breath Pertinent past history: COPD and other ( trach collar with history of laryngeal cancer) Onset (ago): day(s) Context: anxiety Timing: intermittent Severity: mild Exacerbating factors: coughing and stress Known history of: COPD Related Data Home Medications Medication Instructions Recorded Confirmed metoprolol tartrate 50 mg PO DAILY 12/17/19 10/08/20 amiodarone 200 mg PO DAILY 05/28/20 10/08/20 warfarin 3 mg PO DIRECTED 05/28/20 10/08/20 metoprolol tartrate 25 mg PO HS 07/06/20 10/08/20 warfarin 4 mg PO DIRECTED 07/06/20 10/08/20 Allergies Allergy/AdvReac Type Severity Reaction Status Date / Time ioversol Allergy Severe Anaphylactic Verified 08/31/20 09:05 Shock codeine Allergy Intermediate Nausea and Verified 08/31/20 09:05 Vomiting iohexol Allergy Mild Unknown Verified 08/31/20 09:05 [From CONTRAST - CT, XRAY] Review of Systems Review of Systems: All systems reviewed & are unremarkable except as noted in HPI and below PMFSH Past Medical History Medical History Cancer of right breast (~2015) Status post mastectomy. Cancer of right lung Currently receiving chemotherapy. Chronic anemia Chronic atrial fibrillation Maintained on metoprolol on amiodarone. On long-term anticoagulation with warfarin. Failed DC cardioversion previously. Chronic back pain COPD (chronic obstructive pulmonary disease) CVA (cerebral vascular accident) Briefly affected peripheral vision, no residual deficits. Degenerative disc disease Depression Gallstones (~2014) Hyperlipidemia No longer on statin. 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 Treated with chemotherapy and radiation. She had a recurrence in May 2019 and is now receiving chemotherapy at [facility]. Obstruction of bowel (~2018) Osteoporosis Port-A-Cath in place (~2015) Left chest Surgical History Surgical History History of bilateral knee replacement (~2013) Right in 1999. Left in 2013. History of incisional hernia repair History of lumbar fusion Fused at L3-L4 per Dr. Jacinto [facility]. 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 History of tubal ligation (~1978) Family History Family History Mother Family history of malignant neoplasm Family history of heart disease in male family member before age 55 Patient's mother is Father Family history of malignant neoplasm of brain Sibling Cancer Other Family history of arthritis Social History Social History Social History: The patient lives in [place] with her . They have 2 children. 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
[2020-10-08] MEDS: cefTRIAXone 1 GM VIAL IM (18:14)
[2020-10-08 18:38] VITALS: BP 124/77; PULSE 85; RESP 20; O2SAT 93
== END 2020-10-08 18:38 | disposition home or self-care (01) ==
PROVIDERS: Emergency Provider Emergency Medicine; PCP Family Medicine
DX: J40 Bronchitis, not specified as acute or chronic (principal); J44.9 Chronic obstructive pulmonary disease, unspecified; Z87.891 Personal history of nicotine dependence; Z85.3 Personal history of malignant neoplasm of breast; C32.9 Malignant neoplasm of larynx, unspecified
CPT/HCPCS: 36415; 71045; 80053; 83735; 83880; 85025; 93005; 94640; 96372; 99283; 99284; J0696; J2930

== ENCOUNTER 2020-11-17 09:26 | Outpatient (RCR) | payer MEDICARE, SELFPAY ==
[2020-09-21 10:31] LABS: Prothrombin Time 20.3 Seconds (9.50-12.10)
[2020-10-05 10:36] LABS: INR 1.3; Prothrombin Time 13.2 Seconds (9.50-12.10)
[2020-10-13 10:32] LABS: INR 1.4; Prothrombin Time 14.4 Seconds (9.50-12.10)
[2020-10-20 09:59] LABS: INR 2.5; Prothrombin Time 25.4 Seconds (9.50-12.10)
[2020-11-17 09:48] LABS: INR 1.4; Prothrombin Time 14.4 Seconds (9.50-12.10)
== END 2020-12-20 23:59 | disposition home or self-care (01) ==
LOC: CHSLAB 09:26
PROVIDERS: PCP Family Medicine; Visit Provider Specialist
DX: I48.91 Unspecified atrial fibrillation (principal)
CPT/HCPCS: 36415; 85610

== ENCOUNTER 2020-11-23 13:36 | Emergency (ER) | payer MEDICARE, SELFPAY ==
--- NOTE | ~2020-11-23 | XR_ITS ---
EXAMINATION: XR chest 2V DATE: 11/23/2020 14:50 INDICATION: Hemoptysis. TECHNIQUE: Frontal and lateral views of the chest were obtained. COMPARISON: Chest single view 10/08/2020, CT abdomen and pelvis 08/31/2019, chest 2 views 07/08/2020 FINDINGS: There is bandlike atelectasis versus scarring in right midlung zone. No pleural effusion or pneumothorax. The heart size is normal. There is a left subclavian port with tip in superior vena ca va. There is a tracheostomy tube in expected position. There are two compression fractures in the upp er thoracic spine that are new from 07/08/2020. IMPRESSION: 1. Bandlike atelectasis versus scarring in right midlung zone. 2. Two age-indeterminate compression fractures in upper thoracic spine that are new from 07/08/2020. Reviewed, dictated and finalized at location A.
--- NOTE | 2020-11-23 13:42 | ED.URI ---
HPI - URI/Sore Throat General Chief Complaint: Upper Respiratory Infection Stated Complaint: cough blood out of trach Related Data Home Medications Medication Instructions Recorded Confirmed metoprolol tartrate 50 mg PO DAILY 12/17/19 11/23/20 amiodarone 200 mg PO DAILY 05/28/20 11/23/20 warfarin 3 mg PO DIRECTED 05/28/20 11/23/20 metoprolol tartrate 25 mg PO HS 07/06/20 11/23/20 warfarin 4 mg PO DIRECTED 07/06/20 11/23/20 Allergies Allergy/AdvReac Type Severity Reaction Status Date / Time ioversol Allergy Severe Anaphylactic Verified 10/15/20 07:18 Shock codeine Allergy Intermediate Nausea and Verified 10/15/20 07:18 Vomiting iohexol Allergy Mild Unknown Verified 10/15/20 07:18 [From CONTRAST - CT, XRAY] Review of Systems Review of Systems: All systems reviewed & are unremarkable except as noted in HPI and below Constitutional: Constitutional: Denies chills, Denies fever(s) and Denies weakness Gastrointestinal: Gastrointestinal: Denies diarrhea, Denies nausea and Denies vomiting PMF Past Medical History Medical History Cancer of right breast (~2015) Status post mastectomy. Cancer of right lung Currently receiving chemotherapy. Chronic anemia Chronic atrial fibrillation Maintained on metoprolol on amiodarone. On long-term anticoagulation with warfarin. Failed DC cardioversion previously. Chronic back pain COPD (chronic obstructive pulmonary disease) CVA (cerebral vascular accident) Briefly affected peripheral vision, no residual deficits. Degenerative disc disease Depression Gallstones (~2014) Hyperlipidemia No longer on statin. 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 Treated with chemotherapy and radiation. She had a recurrence in May 2019 and is now receiving chemotherapy at [facility]. Obstruction of bowel (~2018) Osteoporosis Port-A-Cath in place (~2015) Left chest Surgical History Surgical History History of bilateral knee replacement (~2013) Right in 1999. Left in 2013. History of incisional hernia repair History of lumbar fusion Fused at L3-L4 per Dr. Jacinto [facility]. 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 History of tubal ligation (~1978) Family History Family History Mother Family history of malignant neoplasm Family history of heart disease in male family member before age 55 Patient's mother is Father Family history of malignant neoplasm of brain Sibling Cancer Other Family history of arthritis Social History Social History Social History: The patient lives in [place] with her . They have 2 children. 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 She smoked up to 1.5 packs of cigarettes per day, quit earlier this year. She designates her , Jalil, as her surrogate decision maker and she wishes to be a full code. 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
[2020-11-23 13:45] VITALS: BP 129/76; PULSE 83; RESP 17; TEMP 36.7; O2SAT 94
[2020-11-23 14:58] LABS: Basophils Absolute Auto 0.04 K/mm3 (0.00-0.10); Basophils Percent Auto 0.4 % (0.0-1.0); Eosinophils Absolute Auto 0.07 K/mm3 (0.02-0.50); Eosinophils Percent Auto 0.7 % (1.0-6.0); Hematocrit 31.9 % (35.0-42.0); Hemoglobin 9.5 g/dL (11.7-13.8); Immature Granulocyte Absolute 0.06 K/mm3 (0.00-0.00); Immature Granulocyte Percent A 0.6 % (0.0-0.0); Lymphocytes Absolute Auto 1.02 K/mm3 (1.10-4.50); Lymphocytes Percent Auto 10.3 % (18.0-42.0); Mean Corpuscular HGB Conc 29.8 g/dL (32.0-36.0); Mean Corpuscular Hemoglobin 23.1 pg (27.0-31.0); Mean Corpuscular Volume 77.6 fL (78.0-102.0); Mean Platelet Volume 9.4 fl (9.2-11.8); Monocytes Absolute Auto 0.45 K/mm3 (0.10-0.90); Monocytes Percent Auto 4.5 % (2.0-11.0); Neutrophils Absolute Auto 8.3 K/mm3 (1.7-7.2); Neutrophils Percent Auto 83.5 % (50.0-70.0); Platelet Count Result 446 K/mm3 (150-420); Red Blood Count 4.11 M/mm3 (4.20-5.40); Red Cell Distribution Width 18.5 % (11.6-14.4); White Blood Count 9.9 K/mm3 (4.8-10.8)
[2020-11-23 15:09] LABS: Prothrombin Time 20.4 Seconds (9.50-12.10)
[2020-11-23 15:18] LABS: Alanine Aminotransferase 24 U/L (14-59); Albumin Level 2.9 g/dL (3.4-5.0); Alkaline Phosphatase 86 U/L (46-116); Anion Gap 12 mmol/L (8-16); Aspartate Amino Transferase 16 U/L (15-37); Bilirubin,Total 0.3 mg/dL (0.00-1.00); Blood Urea Nitrogen 19 mg/dL (7-18); Calcium 8.9 mg/dL (8.5-10.1); Carbon Dioxide 27 mmol/L (21-32); Chloride 107 mmol/L (98-108); Estimated Glomerular Filt Rate > 60; Glucose 98 mg/dL (70-99); NT Pro B Type Natriuretic Pept 228 pg/mL (0-125); Osmolality Calculated 304 mOsm/kg (285-295); Sodium 146 mmol/L (136-145); Total Protein 6.8 g/dL (6.4-8.2)
--- NOTE | 2020-11-23 15:22 | PC.NURSE ---
CALL PLACED FOR POSSIBLE TRANSFER TO [facility] - PT REMAINS STABLE AND FREE OF BLOOD IN TRACH
--- NOTE | 2020-11-23 15:40 | PC.NURSE ---
[facility] ARE NOT CURRENTLY TAKING TRANSFERS THEY HAVE NO BEDS - PT STATES SHE NOW DOES NOT WANT ANY [facility] - CALL PLACED TO DR MERINO, ONCOLOGY [phone] PER ERP REQUEST
--- NOTE | 2020-11-23 15:51 | PC.NURSE ---
SAM WITH DR MERINO OFFICE CALLS DR BECK, ENT FOR GUIDANCE
--- NOTE | 2020-11-23 15:53 | PC.NURSE ---
SAM WITH DR VELASCO OFFICE INFORMS ERP THAT THEY HAVE RELEASED HER FROM [facility]
--- NOTE | 2020-11-23 16:09 | PC.NURSE ---
[facility] and [facility] contacted for transfer, both hospitals state they have no beds available.
--- NOTE | 2020-11-23 16:20 | PC.NURSE ---
angel from dr fu office, ent, returned calll.
--- NOTE | 2020-11-23 16:31 | PC.NURSE ---
after pt given options per dr dennis, pt has decided that she would like to go home.
[2020-11-23 16:46] VITALS: BP 135/88; PULSE 77; RESP 18; O2SAT 94
== END 2020-11-23 16:48 | disposition home or self-care (01) ==
PROVIDERS: Emergency Provider Emergency Medicine; PCP Family Medicine
DX: J95.01 Hemorrhage from tracheostomy stoma (principal); Z85.3 Personal history of malignant neoplasm of breast; Z87.891 Personal history of nicotine dependence; I48.20 Chronic atrial fibrillation, unspecified; Z79.01 Long term (current) use of anticoagulants; J44.9 Chronic obstructive pulmonary disease, unspecified; E78.5 Hyperlipidemia, unspecified; I10 Essential (primary) hypertension; M81.0 Age-related osteoporosis without current pathological fracture; C32.9 Malignant neoplasm of larynx, unspecified
CPT/HCPCS: 36415; 71046; 80053; 83880; 85025; 85610; 99282; 99283